=== PATIENT | female | born 1950 | race Caucasian/White ===

== ENCOUNTER → 2018-03-27 | Outpatient (CLI) | payer MEDICARE ==
--- NOTE | 2018-03-28 11:41 | MM ---
Reason for exam: screening (asymptomatic). Last mammogram was performed 2 years and 5 months ago. History: Patient is postmenopausal. Family history of breast cancer in maternal aunt and breast cancer in cousin. Took progesterone for 10 years. MG 3D Screening Mammo W/Cad Bilateral CC and MLO view(s) were taken. Technologist: Margarita Cameron RT (R)(M) Prior study comparison: November 04, 2015, bilateral MG work up mamm w CAD BILAT. November 01, 2015, bilateral MG 3d screening mammo w/cad. There are scattered fibroglandular densities. No significant changes when compared with prior studies. ASSESSMENT: Benign, BI-RAD 2 RECOMMENDATION: Routine screening mammogram of both breasts in 1 year.
== END | disposition home or self-care (01) ==
LOC: RADMAMWWP 06:53
PROVIDERS: ATTEND Internal Medicine
DX: Z12.31 Encounter for screening mammogram for malignant neoplasm of breast (principal)
CPT/HCPCS: 77063; 77067

== ENCOUNTER → 2019-04-25 | Outpatient (CLI) | payer MEDICARE ==
--- NOTE | 2019-04-28 11:09 | MM ---
Reason for exam: screening (asymptomatic). Last mammogram was performed 1 year and 1 month ago. History: Patient is postmenopausal. Family history of breast cancer in maternal aunt and breast cancer in cousin. Took progesterone for 10 years. Physical Findings: A clinical breast exam by your physician is recommended on an annual basis and results should be correlated with mammographic findings. MG 3D Screening Mammo W/Cad Bilateral CC and MLO view(s) were taken. Prior study comparison: March 27, 2018, bilateral MG 3d screening mammo w/cad. November 04, 2015, bilateral MG work up mamm w CAD BILAT. The breast tissue is heterogeneously dense. This may lower the sensitivity of mammography. There is no discrete abnormality. ASSESSMENT: Negative, BI-RAD 1 RECOMMENDATION: Routine screening mammogram of both breasts in 1 year.
== END | disposition home or self-care (01) ==
LOC: MERGE 07:29 → RADMAMWWP 07:29
PROVIDERS: ATTEND Internal Medicine
DX: Z12.31 Encounter for screening mammogram for malignant neoplasm of breast (principal)
CPT/HCPCS: 77063; 77067

== ENCOUNTER → 2019-05-13 | Outpatient (CLI) | payer MEDICARE | END | disposition home or self-care (01) | LOC: LABWHC1 07:35 | PROVIDERS: ATTEND Psychiatry & Neurology Neurology | DX: G40.909 Epilepsy, unspecified, not intractable, without status epilepticus (principal) | CPT/HCPCS: 36415; 80177; 80185 ==

== ENCOUNTER → 2019-06-13 | Outpatient (CLI) | payer MEDICARE | END | disposition home or self-care (01) | LOC: LABWHC1 08:47 | PROVIDERS: ATTEND Psychiatry & Neurology Neurology | DX: G40.909 Epilepsy, unspecified, not intractable, without status epilepticus (principal) | CPT/HCPCS: 36415; 80177 ==

== ENCOUNTER → 2020-01-13 | Outpatient (CLI) | payer MEDICARE ==
[2020-01-13 10:43] LABS: HCT 43.1 % (34.0-46.0); HGB 13.5 gm/dL (11.4-16.0); Hypochromasia Slight; MCH 29.1 pg (25.0-35.0); MCHC 31.3 g/dL (31.0-37.0); MCV 93.1 fL (80.0-100.0); Mean Platelet Volume 6.8; Platelet Count 168 k/uL (150-450); RBC 4.62 m/uL (3.80-5.40); RDW 13.8 % (11.5-15.5); WBC 6.1 k/uL (3.8-10.6)
[2020-01-13 10:49] LABS: INR 1.1 (<1.2); Partial Thromboplastin Time 31.4 sec (22.0-30.0); Prothrombin Time 11.4 sec (9.0-12.0)
[2020-01-13 10:52] LABS: Albumin 3.9 g/dL (3.5-5.0); Calcium 8.9 mg/dL (8.4-10.2); Potassium 4.9 mmol/L (3.5-5.1); Total Bilirubin 0.6 mg/dL (0.2-1.3); Total Protein 6.3 g/dL (6.3-8.2)
[2020-01-13 12:59] LABS: Appearance,Urine Clear (Clear); Bilirubin,Urine Negative (Negative); Blood,Urine Negative (Negative); Color,Urine Yellow; Glucose,Urine (UA) Negative (Negative); Ketones,Urine Negative (Negative); Leukocyte Esterase,Urine Negative (Negative); Nitrite,Urine Negative (Negative); Protein,Urine Negative (Negative); Specific Gravity,Urine 1.015 (1.001-1.035); Urobilinogen,Urine <2.0 mg/dL (<2.0)
== END | disposition home or self-care (01) ==
LOC: LABPAT 09:06
PROVIDERS: ATTEND Orthopaedic Surgery Sports Medicine
DX: Z01.818 Encounter for other preprocedural examination (principal); Z01.812 Encounter for preprocedural laboratory examination
CPT/HCPCS: 36415; 80053; 81003; 85027; 85610; 85730; 87070; 93005

== ENCOUNTER 2020-01-29 05:31 | Inpatient (IN) | payer MEDICARE ==
[2020-01-22 14:32] VITALS: BMI 30.2
[~2020-01-29 05:31] MED LIST: ACETAMINOPHEN TAB 500 MG TAB PO ONE; GABAPENTIN 300 MG CAP PO ONE; MELOXICAM 7.5 MG TAB PO ONE; ONDANSETRON 4 MG/2 ML VIAL IVP ONE; TRANEXAMIC ACID 1,000 MG in SODIUM CHLORIDE 0.9% 100 ML IVPB ONE
[2020-01-29] MEDS ORDERED: ONDANSETRON 4 MG/2 ML VIAL IVP ONE (05:37)
[2020-01-29] MEDS ORDERED: MIDAZOLAM 2 MG/2 ML VIAL IV PRN (05:37)
[2020-01-29] MEDS ORDERED: DEXAMETHASONE SOD PHOSPHATE 10 MG/ML 1 ML VIAL IV ONE (05:37)
[2020-01-29] MEDS ORDERED: LACTATED RINGERS 1,000 ML IV SCH (05:37)
[2020-01-29] MEDS ORDERED: LIDOCAINE 1% (10MG/ML) FOR IV START INTRADERMA ONE (06:00)
[2020-01-29] MEDS ORDERED: ROPIVACAINE 246.25 MG, EPINEPHrine 0.5 MG, KETOROLAC 30 MG, cloNIDine HCL/PF 80 MCG, WA... MISCELLANE ONE ×5 (06:00)
[2020-01-29] MEDS ORDERED: fentaNYL (PF) 50 MCG/ML 2 ML AMP ONE (06:55)
[2020-01-29] MEDS ORDERED: PROPOFOL 10 MG/ML 20 ML VIAL IV ONE (06:55)
[2020-01-29] MEDS ORDERED: ROCURONIUM BROMIDE 10 MG/ML 5 ML VIAL IV ONE (06:55)
[2020-01-29] MEDS ORDERED: TRANEXAMIC ACID 1,000 MG/10 ML VIAL ONE (06:55)
[2020-01-29] MEDS ORDERED: SODIUM CHLORIDE 0.9% 100 ML BAG ONE (06:55)
[2020-01-29] MEDS ORDERED: NEOSTIGMINE 1 MG/ML 10 ML VIAL ONE (06:55)
[2020-01-29] MEDS ORDERED: SUCCINYLCHOLINE CHLORIDE 100 MG/5 ML SYR IV ONE (06:55)
[2020-01-29] MEDS ORDERED: GLYCOPYRROLATE 0.2 MG/ML 2 ML VIAL ONE (06:55)
[2020-01-29] MEDS ORDERED: ceFAZolin 3,000 MG in SODIUM CHLORIDE 0.9% IRRIGATIO 3,000 ML IRRIGATION ONE (07:34)
[2020-01-29] MEDS ORDERED: LACTATED RINGERS 1,000 ML IV ONE (08:26)
[2020-01-29] MEDS ORDERED: bisacodyL 10 MG SUPP RECTAL PRN (08:52)
[2020-01-29] MEDS ORDERED: ACETAMINOPHEN TAB 325 MG TAB PO PRN (08:52)
[2020-01-29] MEDS ORDERED: TEMAZEPAM 15 MG CAP PO PRN (08:52)
[2020-01-29] MEDS ORDERED: MAGNESIUM HYDROXIDE 2,400 MG/10 ML CUP PO PRN (08:52)
[2020-01-29] MEDS ORDERED: NA PHOS,M-B/NA PHOS,DI-BA 133 ML ENEMA RECTAL PRN (08:52)
[2020-01-29] MEDS ORDERED: NALOXONE 0.4 MG/ML 1 ML VIAL IV PRN (08:52)
[2020-01-29] MEDS ORDERED: HYDROmorphone 0.5 MG/0.5 ML SYRINGE IVP PRN ×2 (08:52)
[2020-01-29] MEDS ORDERED: ONDANSETRON 4 MG/2 ML VIAL IVP PRN (08:52)
[2020-01-29] MEDS ORDERED: ROPIVACAINE 0.2%-NS ON-Q PUMP 1,090 MG, EMPTY PAIN BALL 1 EACH MISCELLANE PRN (08:54)
--- NOTE | 2020-01-29 09:06 | P.ANPRN ---
Procedure Note - Anesthesia - Nerve Block Performed Left Adductor Canal Infusion Time Out Performed: Yes ([id number]) Date of Procedure: 01/29/20 Procedure Start Time: 06:43 Procedure Stop Time: 06:48 Location of Patient: PreOp Indication: Acute Post-Operative Pain, Requested by Surgeon Specifically requested for management of pain by DrSoco: Bala Collins Sedation Type: Sedate with meaningful contact maintained Preparation: Sterile Prep Position: Supine Catheter Depth at Skin (cm): 8 Catheter: Indwelling Needle Types: Pajunk Needle Gauge: 21 Ultrasound used to visualize needle placement: Yes Ultrasound used to observe medication spread: Yes Injectate: 0.5% Ropivacaine (see comment for volume) (20cc) Blood Aspirated: No Pain Paresthesia on Injection Noted: No Resistance on Injection: Normal Image Stored and Saved: Yes Events: Uneventful and Well Tolerated
[2020-01-29] MEDS: HYDROmorphone 0.5 MG/0.5 ML SYRINGE IVP PRN ×6 (09:08→19:22)
[2020-01-29] MEDS ORDERED: diphenhydrAMINE 50 MG/ML 1 ML VIAL IVP ONE (09:49)
--- NOTE | 2020-01-29 10:22 | OP ---
OPERATIVE REPORT DATE OF PROCEDURE: 01/29/2020 SURGEON: Bala Collins MD JAVA TECH LEAD: PENELOPE Crain. PREOPERATIVE DIAGNOSIS: Left knee osteoarthrosis. POSTOP DIAGNOSIS: Left knee osteoarthrosis. OPERATION: Left total knee arthroplasty. ANESTHESIA: General endotracheal. ESTIMATED BLOOD LOSS: 100 mL. TOURNIQUET: Tourniquet time was 40 minutes at 250 mmHg. COMPLICATIONS: None apparent. DRAINS: None. DISPOSITION: Postanesthesia care unit. INDICATIONS: Thuy is a very pleasant 69-year-old female with longstanding history of left knee pain. History and physical examination are consistent with advanced left knee osteoarthrosis. She has been through significant nonoperative management up to this point. Further treatments were discussed. She decided to go for the left total knee arthroplasty. The risks of the procedure were discussed in detail. These risks include, but are not limited to risk of infection, nerve damage, bleeding, pain, and a small risk of deep vein thrombosis which could lead to fatal pulmonary emboli. There is also risk of loosening of the implant, could require revision operation. The patient understands these risks. All of her questions were answered to her satisfaction. Appropriate informed consent was obtained. DESCRIPTION OF PROCEDURE: The patient identified in preop holding area. Surgical site was marked by both the patient and myself. She was given 2 g of Ancef IV for prophylactic purposes. She was then transferred to the operative suite. She was placed supine on the operating table. General anesthetic was then administered and dosed per the Anesthesia Department without apparent complication. Examination under anesthesia was then performed. The patient was 2-3 degrees shy of full extension. She had 95 degrees of flexion. Medial collateral ligament, lateral collateral ligament, posterior cruciate ligaments were stable. Tourniquet was then placed high on the left upper thigh well-padded in preparation for surgery. The patient's left lower extremity was than prepped and draped in usual sterile fashion. Standard surgical pause undertaken to ensure that we were operating on the correct site and that appropriate preop antibiotics were given. All staff were in agreement and we proceeded. The outlines of patella were marked with surgical pen and planned 12 cm vertical incision centered over the patella was marked with surgical pen. Leg was then exsanguinated with an Esmarch dressing. The knee was then flexed and tourniquet was inflated to 250 mmHg. The total tourniquet time for the procedure was 40 minutes. Incision was then made with a 10 blade scalpel. Dissection carried down sharply in the overlying fascia. Great care was taken to minimize the skin flaps. The knee was then exposed using a standard medial parapatellar approach. A small cuff of quadriceps tendon was left for suturing. small amount of valgus preoperatively. A very minimal medial release was then made. This was done just enough to place the medial retractors. The medial meniscus was then excised as well. The lateral meniscus was also released anteriorly. The leg was then externally rotated. The patella was everted. The knee was flexed. The retractors then placed to protect the collateral ligaments. I then proceeded to remove the infrapatellar fat pad. This excised sharply tangentially with fibers of the patellar tendon. I then proceeded to remove the peripheral osteophytes. This is done with a rongeur. I then proceeded with the distal femoral resection. She did have near full extension. A planned 9 mm resection was then done. The femoral canal was then entered in midline of the femur approximately 10 mm anterior to the origin of the posterior cruciate ligament. The iftikhar was then advanced down the center of the femur and placed intramedullary. Based on preop radiographs and angle between the anatomic and mechanical axis of the femur was approximately 4-5 degrees. The valgus angle of this femoral cutting guide was then set at 4 degrees for the left knee. The distal femoral cutting guide was then advanced over the intramedullary iftikhar. This was seated firmly against the femur. I then as mentioned planned to take 9 mm off the distal femur. The cutting block was then secured onto the femur with pins. The jig was removed. The distal femoral cut was made through the slot of the block. The pins were then removed. The distal femoral cutting block was removed. The accuracy of the distal femoral cuts was checked with 2 flat bars. I then proceeded with femoral sizing. Posterior referencing sizing guide was held firmly against the resected distal surface of the femur. The posterior condyles were resting on the posterior plane of the guide. The sizing stylus was then placed on the anterior femur. The size was measured as a size 6. I then assessed for femoral rotation. Findings were 3 degrees external rotation. Three degrees external rotation was placed onto the jig. These holes were then marked. I then confirmed the rotation by 3 separate methods. This was done using epicondylar axis as well as Whitesides line and posterior referencing. It was deemed that the external rotation was proper. I then went forward, placed the femoral cutting block. This was placed over the previously placed pin holes. The Moiz wing was then placed on the anterior slots to ensure that we would not notch the anterior femur with the anterior femoral cut. I then proceed with the anterior femoral cut. This was flush with the anterior cortex of the femur. Posterior cuts were then made followed by the anterior chamfer cut, then the posterior chamfer cut. The cutting block was then removed. Throughout the resection, the collateral ligaments were protected with retractors. I then placed a size 6 femur. It was slightly wide mediolateral but the narrow fit very nicely and it fit flush with the distal end of the femur. The drill hole was then made. I then proceed with the tibial cut. I planned for cruciate-retaining knee. The guide was placed and set for varus valgus and for slope. The height was set for approximate 2 mm resection from the lateral tibial plateau which was the lower side. I was happy with the alignment and amount of resection. The cutting block was then pinned to the proximal tibia. The alignment iftikhar was removed. The proximal tibia was resected with a reciprocating saw. Again this was done with retractors protecting the collateral ligaments as well as the posterior cruciate ligament. I then proceeded to evaluate the flexion extension gaps. A 10 mm block was then placed. The flexion-extension gaps were equal. I then proceeded with resection of posterior osteophytes. Very minimal posterior osteophytes. This is done using a curved osteotome. This resected the posterior osteophytes. Posterior capsule stripping brought off the posterior aspect of the femur at this time. The osteophytes were then removed. \I then proceeded with resection of the patella. The thickness of patella was measured using the caliper. The thickness was 22 mm. The thickness of the anticipated patellar dome was taken into account. The resection was then performed and confirmed to be equal in 4 quadrants using a caliper. Approximately 14 mm of bone remained after resection. A 32 x 8.5 standard patellar trial was then placed. The holes drilled. Trial was then placed. I then proceeded with sized tibial plate. A size D tibial plate fit very nicely. I then placed a trial femur. The tibial tray and patellar button. The 10 mm trial tibial insert was then also placed. The components fit very nicely. She had full extension and flexion. The extension and flexion gaps were equal and stable to varus and valgus stress. The patella tracked appropriately. Tibial tray rotation was then marked with a Bovie. This was externally rotated properly. I then proceeded with tibial preparation. First drilled the femoral holes, removed femoral component. The tibial tray was then set for proper external rotation as well as mediolateral placement onto the tibia. It was then pinned into place. I then proceeded with punching the keel. I then decided to proceed with cementing of all of our components. The knee was thoroughly irrigated with sterile saline solution via pulse lavage. A lateral geniculate artery was identified and cauterized. All blood was removed from around the bone of the tibia, femur, and patella with pulse lavage. I then proceeded with cementing. Two packs of antibiotic bone cement on the back table set by the director medical surgical. I then proceed with cementing the tibia first. The cement was impacted with the keel as well as deeply seated to the bone. A second coat of cement was then placed. The tibia was then impacted into place. Excess cement was removed with Cuervo's and jokers. I then proceeded with cementing of the femoral component. The femoral component was also cemented using standard. Excess cement was removed. A 10 mm trial insert was then placed into the knee. It was brought into full extension with a constant axial load placed until the cement had hardened. The patellar component was then cemented. This held firmly with compressive device until the cement had dried. When the cement had dried, the knee was taken out of extension. All excess cement was removed from around the prosthesis. I then trialed the knee with a 10 mm insert. The flexion-extension gaps were appropriate. The knee was stable. It came into full extension. I decided to go forward with a 10 mm medial congruent cross-linked cruciate- retaining tibial insert. Polyethylene was then placed on tibial tray and locked into place. The knee was again reduced. The knee was again further irrigated with sterile saline solution with antibiotic added. The tourniquet was then deflated. Total tourniquet time for the procedure was 40 minutes at 250 mmHg. Final components were Cleve Persona size 6 narrow cruciate-retaining femoral component, size D tibial tray, a 10 mm medial congruent cruciate-retaining polyethylene insert and a 32 x 8.5 mm patella. I then proceeded with closure. Again, the knee was thoroughly irrigated. The quadriceps tendon, the medial retinaculum were reapproximated with #2 Ethibond suture. The extensor mechanism was then closed with a running #2 Quill suture. Subcutaneous tissues were closed with 2-0 Vicryl interrupted suture. The skin was closed with a running 3-0 Quill suture. Dermabond was applied to the incision. All sponge and needle counts were deemed correct prior to closure. The patient tolerated procedure without apparent complication. She was transferred to recovery room in stable condition. MMODL / IJN: [id number] /
--- NOTE | 2020-01-29 11:43 | XR ---
EXAMINATION TYPE: XR knee limited LT DATE OF EXAM: 01/29/2020 CLINICAL HISTORY: Postoperative evaluation Two views of the left knee are submitted. Identified are changes of total knee arthroplasty with fem oral and tibial components appearing well seated. Postsurgical soft tissue changes are noted. Align ment is anatomic.
[2020-01-29] MEDS: LACTATED RINGERS 1,000 ML IV SCH ×2 (13:11→19:24)
[2020-01-29] MEDS: HYDROcodone/APAP 7.5-325MG 1 EACH TAB PO PRN ×2 (14:59→23:11)
[2020-01-29] MEDS ORDERED: ARTIFICIAL TEARS-HYPROMELLOSE DROPS 15 ML BTL BOTH EYES PRN (17:33)
[2020-01-29] MEDS: carvediloL 3.125 MG TAB PO SCH (17:43)
[2020-01-29] MEDS: traZODone HCL 100 MG TAB PO SCH (20:17)
[2020-01-29] MEDS: MAGNESIUM OXIDE 400 MG TAB PO SCH (20:17)
[2020-01-29] MEDS: SENNOSIDES-DOCUSATE SODIUM 1 EACH TAB PO SCH (20:17)
--- NOTE | 2020-01-30 00:52 | P.CONS ---
History of Present Illness - Reason for Consult Consult date: 01/29/20 Medical management - Chief Complaint Left total knee arthroplasty - History of Present Illness Patient is a 69-year-old female with a known history of fibromyalgia, DVT currently on anticoagulation with Xarelto, osteoarthritis, hypertension, history of PE, hypothyroidism and history of Crohn's disease, CKD stage III and other multiple medical problems was admitted to the hospital for elective left total knee arthroplasty. Currently left knee pain is controlled with nerve block. Denies any complaints of fever or chills. No nausea vomiting or abdominal pain. No dizziness or lightheadedness. Vitals blood pressure is 117/68 and pulse is 53 and respiration 18 and pulse ox is 99. Patient has been afebrile. Preoperatively patient was hypotensive likely due to anxiety. Currently blood pressure is controlled. Review of Systems Constitutional: Patient denies any fever or chills . No generalized weakness or weight loss. Abdomen: Patient denied nausea vomiting and diarrhea and abdominal pain. Cardiovascular: Patient denies any chest pain or short of breath no palpitations. Respiratory: patient denied any cough is from production. No shortness of ryan th Neurologic: Patient denied any numbness or tingling headache. Musculoskeletal: Patient denies any complaints of joint swelling or deformity. Skin: Negative Psychiatric: Negative Endocrine: No heat or cold intolerance. No recent weight gain. Genitourinary: No dysuria or hematuria. All other 14 point ROS negative except the above Past Medical History Past Medical History: Deep Vein Thrombosis (DVT), Fibromyalgia, Hypertension, Osteoarthritis (OA), Pulmonary Embolus (PE), Seizure Disorder, Thyroid Disorder Additional Past Medical History / Comment(s): seizure and brain bleed 2012 from "blood too thin" from blood thinner, hx crohns disease, stage 3 kidney disease, varicose veins , recent rx for UTI History of Any Multi-Drug Resistant Organisms: None Reported Past Surgical History: Bariatric Surgery, Bowel Resection, Hysterectomy, Orthopedic Surgery, Tonsillectomy Additional Past Surgical History / Comment(s): surgery for varicose veins , 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, bowel resection with colostomy then colostomy reversal, kavitha oophorectomy, tonsilectomy x 3, gastric bypass and then reversed, stomach stapling, rt knee arthroscopy surgery x 3 , kavitha cataracts, Past Anesthesia/Blood Transfusion Reactions: No Reported Reaction Past Psychological History: No Psychological Hx Reported Smoking Status: Never smoker Past Alcohol Use History: None Reported Past Drug Use History: None Reported - Past Family History Father Family Medical History: Cancer, Deep Vein Thrombosis (DVT) Additional Family Medical History / Comment(s): leukemia Brother(s) Family Medical History: Cancer, Deep Vein Thrombosis (DVT) Additional Family Medical History / Comment(s): prostate, leukemia Mother Family Medical History: Deep Vein Thrombosis (DVT) Medications and Allergies Home Medications Medication Instructions Recorded Confirmed Type Folic Acid 1 mg PO QAM 07/27/15 01/22/20 History Potassium Chloride [Klor-Con 10] 10 meq PO DAILY 08/13/15 01/22/20 History Genteal Eye Drops 1 drop BOTH EYES BID PRN 08/14/15 01/22/20 History Furosemide [Lasix] 20 mg PO DAILY PRN 01/22/20 01/22/20 History Furosemide [Lasix] 40 mg PO DAILY PRN 01/22/20 01/22/20 History Levothyroxine Sodium [Synthroid] 88 mcg PO DAILY 01/22/20 01/22/20 History Magnesium 400 mg PO HS 01/22/20 01/22/20 History Rivaroxaban [Xarelto] 20 mg PO HS 01/22/20 01/22/20 History carvediloL [Coreg] 3.125 mg PO BID 01/22/20 01/22/20 History levETIRAcetam [Keppra] 750 mg PO Q12HR 01/22/20 01/22/20 History traZODone HCL [Desyrel] 100 mg PO HS 01/22/20 01/22/20 History Allergies Allergy/AdvReac Type Severity Reaction Status Date / Time niacin Allergy Rash/Hives,throat Verified 01/29/20 05:48 swelling Penicillins Allergy Unknown Verified 01/29/20 05:48 Childhood Sulfa (Sulfonamide Allergy Unknown Verified 01/29/20 05:48 Antibiotics) Childhood tetanus and diphtheria Allergy Unknown Verified 01/29/20 05:48 toxoids Childhood [tetanus & diphtheria toxoids] Physical Exam Vitals: Vital Signs Temp Pulse Pulse Resp BP BP Pulse Ox 01/29/20 19:06 97.5 F L 53 L 18 117/68 99 01/29/20 16:00 61 18 01/29/20 15:00 97.8 F 61 18 109/65 94 L 01/29/20 13:00 53 L 16 94/59 99 01/29/20 12:30 54 L 16 97/68 97 01/29/20 12:00 59 L 16 102/61 100 01/29/20 11:30 53 L 16 105/63 95 01/29/20 11:00 54 L 16 103/64 98 01/29/20 10:45 55 L 16 93/68 97 01/29/20 10:30 53 L 16 91/59 98 01/29/20 10:15 55 L 16 99/56 95 01/29/20 10:00 54 L 16 96/60 96 01/29/20 09:51 54 L 16 138/68 92 L 01/29/20 09:35 50 L 16 132/73 99 01/29/20 09:20 51 L 16 145/78 99 01/29/20 09:05 53 L 16 157/83 98 01/29/20 08:49 97.2 F L 70 16 154/85 96 01/29/20 06:58 62 16 135/65 99 01/29/20 06:00 98.2 F 64 16 133/70 98 Intake and Output 01/29/20 01/29/20 01/29/20 06:59 14:59 22:59 Intake Total 300 1951 Output Total 100 Balance 300 1851 Intake: IV 300 1701 Oral 250 Output: Estimated Blood Loss 100 Other: Weight 70.9 kg 70.9 kg PHYSICAL EXAMINATION: Patient is lying in the bed comfortably, no acute distress, awake alert and oriented.. HEENT: Normocephalic. Neck is supple. Pupils reactive. Nostrils clear. Oral cavity is moist. Ears reveal no drainage. Neck reveals no JVD, carotid bruits, or thyromegaly. CHEST EXAMINATION: Trachea is central. Symmetrical expansion. Lung farmer clear to auscultation and percussion. CARDIAC: Normal S1, S2 with no gallops. No murmurs ABDOMEN: Soft. Bowel sounds normal. No organomegaly. No abdominal bruits. Extremities: reveal no edema. No clubbing or cyanosis Neurologically awake, alert, oriented x3 with well-coordinated movements. No focal deficits noted Skin: No rash or skin lesions. Psychiatric: Coperative. Nonsuicidal Musculoskeletal: No joint swelling or deformity. Normal range of motion. Assessment and Plan Assessment: Left total knee arthroplasty. Postoperative day 0 Uncontrolled hypertension likely due to anxiety improved now. History of DVT/PE currently on anticoagulation with Xarelto at home Osteoarthritis History of seizure disorder Hypothyroidism Chronic kidney disease stage III Varicose veins History of E. coli urinary tract infection DVT prophylaxis patient is already on full anticoagulation. Plan: Patient will be continued on current pain management and bowel regimen. Anesthesia service on board. Continue with anticoagulation and encourage incentive spirometry and ambulation. Continue home medications and further recommendations based on the clinical course. Diuretics on hold currently which can be restarted upon discharge. Thank you for your consult. Time with Patient: Greater than 30
[2020-01-30] MEDS: HYDROcodone/APAP 7.5-325MG 1 EACH TAB PO PRN ×5 (03:16→23:05)
[2020-01-30] MEDS: HYDROmorphone 0.5 MG/0.5 ML SYRINGE IVP PRN ×3 (04:15→18:08)
[2020-01-30] MEDS: LACTATED RINGERS 1,000 ML IV SCH ×2 (05:28→16:30)
[2020-01-30] MEDS: LEVOTHYROXINE 88 MCG TAB PO SCH (05:29)
[2020-01-30] MEDS: carvediloL 3.125 MG TAB PO SCH ×2 (07:23→17:45)
[2020-01-30] MEDS: FOLIC ACID 1 MG TAB PO SCH (07:23)
[2020-01-30 08:04] LABS: Basophils # (A) 0.1 k/uL (0-0.2); Basophils % (A) 1 %; Eosinophils # (A) 0.1 k/uL (0-0.7); Eosinophils % (A) 1 %; HCT 37.5 % (34.0-46.0); HGB 11.6 gm/dL (11.4-16.0); Hypochromasia Slight; Lymphocytes # (A) 2.2 k/uL (1.0-4.8); Lymphocytes % (A) 24 %; MCH 28.7 pg (25.0-35.0); MCHC 30.9 g/dL (31.0-37.0); MCV 92.8 fL (80.0-100.0); Mean Platelet Volume 7.4; Monocytes # (A) 0.3 k/uL (0-1.0); Monocytes % (A) 4 %; Neutrophils # (A) 6.6 k/uL (1.3-7.7); Neutrophils % (A) 71 %; Platelet Count 144 k/uL (150-450); RBC 4.04 m/uL (3.80-5.40); RDW 13.8 % (11.5-15.5); WBC 9.3 k/uL (3.8-10.6)
--- NOTE | 2020-01-30 09:33 | P.PN ---
Subjective Progress Note Date: 01/30/20 Principal diagnosis: Left TKA Patient is seen at bedside this morning. She is postop day #1 from left total knee arthroplasty. She has pain at the surgical site as expected but denies any new complaints. She denies numbness, tingling or calf pain. Review of systems is negative for fever, chills, chest pain, shortness of breath or other Objective - Vital Signs Vital signs: Vital Signs Temp 97.4 F L 01/30/20 07:17 Pulse 58 L 01/30/20 07:17 Resp 16 01/30/20 07:17 BP 119/83 01/30/20 07:17 Pulse Ox 100 01/30/20 07:17 Intake & Output 01/29/20 01/30/20 01/30/20 18:59 06:59 18:59 Intake Total 1950 1849 Output Total 100 Balance 1850 1849 Weight 70.9 kg Intake: IV 1701 Intake, IV Titration 1100 Amount Lactated Ringers 1,000 ml 1100 @ 100 mls/hr IV .Q10H YUNIER Rx#:[id number] Oral 250 750 Output: Estimated Blood Loss 100 Other: Voiding Method Toilet # Voids 4 - Exam Inspection reveals a benign surgical wound. There is no active bleeding or drainage. Neurovascular status is intact throughout the lower extremity with motor and sensation fully intact. Calf is soft and nontender. 2+ dorsalis pedis pulse and less than 2 second cap refill is present. - Constitutional General appearance: Present: no acute distress - Labs CBC & Chem 7: 01/30/20 07:52 Labs: Abnormal Lab Results - Last 24 Hours (Table) 01/30/20 Range/Units 07:52 MCHC 30.9 L (31.0-37.0) g/dL Plt Count 144 L (150-450) k/uL Assessment and Plan (1) Status post total left knee replacement Narrative/Plan: She will continue with routine postop orthopedic protocol including pain management, wound care, PT, DVT prophylaxis and medical management. Expect that she will transfer to home tomorrow Current Visit: Yes Status: Acute Priority: Medium Code(s): Z96.652 - PRESENCE OF LEFT ARTIFICIAL KNEE JOINT SNOMED Code(s): 4742665209556 Time with Patient: Less than 30
[2020-01-30] MEDS: diazePAM 5 MG TAB PO PRN ×2 (09:39→17:45)
[2020-01-30] MEDS: MULTIVITAMINS, THERA 1 EACH TAB PO SCH (12:21)
--- NOTE | 2020-01-30 14:38 | P.PN ---
Progress Note - Text Progress Note Date: 01/30/20 patient had a left sided aadductor canal catheter placed running at 10 ml/hr she reports pain not well cintrolled, the best at 7/10 and the worst at 9/10 but she is acknowledging that she is ambulating more with physical therapy. upon inspection of the catheter site, I noted some leak of clear fluid most likely from the infusion being infused but the leak is minimal and does not warrant removal of the catheter. the patient asked if we can increase the rate of the infusion to have a better control and I increased the rate to 10 ml/hr the patient denied any numbness or weakness in her left lower extremity, she also denied any symptoms of local anesthetic toxicity. will keep the catheter in and patient will remove it on the third or fourth day.
--- NOTE | 2020-01-30 16:23 | P.PN ---
Subjective Progress Note Date: 01/30/20 Principal diagnosis: Left total knee arthroplasty 69-year-old female with a known history of fibromyalgia, DVT currently on anticoagulation with Xarelto, osteoarthritis, hypertension, history of PE, hypothyroidism and history of Crohn's disease, CKD stage III and other multiple medical problems was admitted to the hospital for elective left total knee arthroplasty. Currently left knee pain is controlled with nerve block. 01/30/2020 Patient is seen and evaluated in room at bedside; patient is postop day #1 for left TKA; patient reports some pain at the surgical site but claims overall improvement Vital signs stable with temperature of 97.4, pulse 58, respirations 16 and blood pressure 119/83 Lab review shows a white blood count of 9.3, hemoglobin 11.6 and was treated count of 144 Orthopedic surgery is following and recommending to continue with. Orthopedic protocol including pain management, wound care, PT evaluation, DVT prophylaxis and medical management Patient is possibly going to be discharged in next 24 hours Objective - Vital Signs Vital signs: Vital Signs Temp 97.4 F L 01/30/20 07:17 Pulse 58 L 01/30/20 07:17 Resp 16 01/30/20 07:17 BP 119/83 01/30/20 07:17 Pulse Ox 100 01/30/20 07:17 Intake & Output 01/29/20 01/30/20 01/30/20 18:59 06:59 18:59 Intake Total 1950 1849 Output Total 100 Balance 1850 185 Weight 70.9 kg Intake: IV 1701 Intake, IV Titration 1100 Amount Lactated Ringers 1,000 ml 1100 @ 100 mls/hr IV .Q10H YUNIER Rx#:[id number] Oral 250 750 Output: Estimated Blood Loss 100 Other: Voiding Method Toilet # Voids 4 - Exam PHYSICAL EXAMINATION: GENERAL: The patient is alert and oriented x3, not in any acute distress. Well developed, well nourished. HEENT: Pupils are round and equally reacting to light. EOMI. No scleral icterus. No conjunctival pallor. Normocephalic, atraumatic. No pharyngeal erythema. No thyromegaly. CARDIOVASCULAR: S1 and S2 present. No murmurs, rubs, or gallops. PULMONARY: Chest is clear to auscultation, no wheezing or crackles. ABDOMEN: Soft, nontender, nondistended, normoactive bowel sounds. No palpable organomegaly. MUSCULOSKELETAL: No joint swelling or deformity. EXTREMITIES: No cyanosis, clubbing, or pedal edema. NEUROLOGICAL: Gross neurological examination did not reveal any focal deficits. SKIN: No rashes. - Labs CBC & Chem 7: 01/30/20 07:52 Labs: Abnormal Lab Results - Last 24 Hours (Table) 01/30/20 Range/Units 07:52 MCHC 30.9 L (31.0-37.0) g/dL Plt Count 144 L (150-450) k/uL Assessment and Plan Assessment: Left total knee arthroplasty. Postoperative day 0 Uncontrolled hypertension likely due to anxiety improved now. History of DVT/PE currently on anticoagulation with Xarelto at home Osteoarthritis History of seizure disorder Hypothyroidism Chronic kidney disease stage III Varicose veins History of E. coli urinary tract infection DVT prophylaxis patient is already on full anticoagulation. Plan: Patient will be continued on current pain management and bowel regimen. Anesthesia service on board. Continue with anticoagulation and encourage incentive spirometry and ambulation. Continue home medications and further recommendations based on the clinical course. Diuretics on hold currently which can be restarted upon discharge.
[2020-01-30] MEDS: SENNOSIDES-DOCUSATE SODIUM 1 EACH TAB PO SCH (20:36)
[2020-01-30] MEDS: RIVAROXABAN 20 MG TAB PO SCH (20:36)
[2020-01-30] MEDS: traZODone HCL 100 MG TAB PO SCH (20:36)
[2020-01-30] MEDS: MAGNESIUM OXIDE 400 MG TAB PO SCH (20:37)
[2020-01-31] MEDS: LACTATED RINGERS 1,000 ML IV SCH ×3 (00:43→22:41)
[2020-01-31] MEDS: diazePAM 5 MG TAB PO PRN ×2 (02:10→21:28)
[2020-01-31] MEDS: HYDROmorphone 0.5 MG/0.5 ML SYRINGE IVP PRN (02:41)
[2020-01-31] MEDS: LEVOTHYROXINE 88 MCG TAB PO SCH (06:12)
[2020-01-31] MEDS: HYDROcodone/APAP 7.5-325MG 1 EACH TAB PO PRN ×2 (06:12→12:06)
[2020-01-31 07:40] LABS: Calcium 8.4 mg/dL (8.4-10.2); Potassium 4.6 mmol/L (3.5-5.1)
[2020-01-31] MEDS: FOLIC ACID 1 MG TAB PO SCH (08:08)
[2020-01-31] MEDS: MULTIVITAMINS, THERA 1 EACH TAB PO SCH (08:08)
[2020-01-31] MEDS: carvediloL 3.125 MG TAB PO SCH ×2 (08:08→16:59)
[2020-01-31] MEDS: traMADol 50 MG TAB PO PRN ×2 (08:14→20:37)
--- NOTE | 2020-01-31 12:58 | P.PN ---
Progress Note - Text Progress Note Date: 01/31/20 Orthopedics: History of present illness: Patient is a pleasant 69-year-old male who is seen at bedside for further evaluation for her left knee. She is status post left knee total arthroplasty performed by Dr. Collins on 01/29/2020. She has been able to ambulate on the left lower extremity. She has an On-Q pain pump intact. She does feel she has significant difficulty with pain control at her left knee. She does not feel her left knee pain is controlled. She does not feel should be able to be discharged home due to her pain. She is eating and voiding without difficulty. She does continue be seen by medicine for her other medical diagnoses including history of DVT currently on anticoagulation with Xarelto, history of pulmonary embolism, hypertension, fibromyalgia, chronic kidney disease stage III, and history of Crohn's disease. Physical Exam Total Knee Arthroplasty: Status post surgical day number 2 Patient is awake, alert, and oriented 3 Vital signs stable Good chest excursion with deep inspiration and expiration On-Q pain pump intact No signs or symptoms of DVT; no calf pain Dressing over the left knee is clean, dry, and intact; no erythema, purulence, or signs of infection Patient has full foot and ankle motion without difficulty at the left lower extremity Evidence of some generalized swelling around the left knee postoperatively Neurovascular status left lower extremity intact Assessment: Status post left total knee arthroplasty Left knee pain History of DVT currently on anticoagulation with Xarelto History of pulmonary embolism Hypertension Fibromyalgia Chronic kidney disease stage III History of Crohn's disease Plan: 1. Patient to remain weight-bear as tolerated on the lower extremity; patient may work with physical therapy to increase mobility and ambulation 2. Continue pain control; patient is having difficulty with current pain control. She is currently receiving Henderson 7.5 mg/325 mg 1 tab every 4-6 hours as needed for pain. We'll plan to discontinue this medication and increase her Henderson to Henderson 10 mg/325 mg 1-2 tabs every 6 hours as needed for pain. We will plan to continue weaning off of IV Dilaudid in anticipation for discharge home tomorrow if her pain is better control 3. Medicine to continue following the patient for his other medical diagnoses including hypertension, fibromyalgia, chronic kidney disease stage III, history of pulmonary embolism, history of DVT currently on anticoagulation: History of Crohn's disease 4. Patient to continue with anticoagulation therapy with Xarelto 5. We'll continue to follow the patient closely. If she is able to improve we'll plan for discharge home as early as tomorrow, 02/01/2020 6. Patient can follow-up with Dr. Bala Collins or Mango Adhikari PA-C at [facility] in 2-3 weeks following discharge
[2020-01-31] MEDS: HYDROcodone/APAP 10-325MG 1 EACH TAB PO PRN ×2 (16:59→22:53)
--- NOTE | 2020-01-31 18:23 | P.PN ---
Subjective Progress Note Date: 01/31/20 Principal diagnosis: Left total knee arthroplasty 69-year-old female with a known history of fibromyalgia, DVT currently on anticoagulation with Xarelto, osteoarthritis, hypertension, history of PE, hypothyroidism and history of Crohn's disease, CKD stage III and other multiple medical problems was admitted to the hospital for elective left total knee arthroplasty. Currently left knee pain is controlled with nerve block. 01/30/2020 Patient is seen and evaluated in room at bedside; patient is postop day #1 for left TKA; patient reports some pain at the surgical site but claims overall improvement Vital signs stable with temperature of 97.4, pulse 58, respirations 16 and blood pressure 119/83 Lab review shows a white blood count of 9.3, hemoglobin 11.6 and was treated count of 144 Orthopedic surgery is following and recommending to continue with. Orthopedic protocol including pain management, wound care, PT evaluation, DVT prophylaxis and medical management Patient is possibly going to be discharged in next 24 hours 01/31/2020 Patient is seen and evaluated in room at bedside; reports her discharge was held due to uncontrolled pain Vital signs remained stable; lab review shows an elevated creatinine of 1.6; dayami garces reports chronic kidney disease with a baseline creatinine over 1.3; patient is advised to increase oral fluid intake; we will monitor strict LUPIS's, daily weights, renal function and electrolytes; discharge held today due to uncontrolled pain; patient will be discharged in next 24 hours Objective - Vital Signs Vital signs: Vital Signs Temp 98.5 F 01/31/20 07:21 Pulse 72 01/31/20 08:00 Resp 16 01/31/20 08:00 BP 111/72 01/31/20 07:21 Pulse Ox 94 L 01/31/20 07:21 Intake & Output 01/30/20 01/31/20 01/31/20 18:59 06:59 18:59 Intake Total 480 Balance 480 Intake: Oral 480 Other: Voiding Method Toilet # Voids 2 2 2 - Exam PHYSICAL EXAMINATION: GENERAL: The patient is alert and oriented x3, not in any acute distress. Well developed, well nourished. HEENT: Pupils are round and equally reacting to light. EOMI. No scleral icterus. No conjunctival pallor. Normocephalic, atraumatic. No pharyngeal erythema. No thyromegaly. CARDIOVASCULAR: S1 and S2 present. No murmurs, rubs, or gallops. PULMONARY: Chest is clear to auscultation, no wheezing or crackles. ABDOMEN: Soft, nontender, nondistended, normoactive bowel sounds. No palpable organomegaly. MUSCULOSKELETAL: No joint swelling or deformity. EXTREMITIES: No cyanosis, clubbing, or pedal edema. NEUROLOGICAL: Gross neurological examination did not reveal any focal deficits. SKIN: No rashes. - Labs CBC & Chem 7: 01/30/20 07:52 01/31/20 06:56 Labs: Abnormal Lab Results - Last 24 Hours (Table) 01/31/20 Range/Units 06:56 Sodium 136 L (137-145) mmol/L Chloride 109 H (98-107) mmol/L BUN 28 H (7-17) mg/dL Creatinine 1.60 H (0.52-1.04) mg/dL Assessment and Plan Assessment: Left total knee arthroplasty. Postoperative day 0 Uncontrolled hypertension likely due to anxiety improved now. History of DVT/PE currently on anticoagulation with Xarelto at home Osteoarthritis History of seizure disorder Hypothyroidism Chronic kidney disease stage III Varicose veins History of E. coli urinary tract infection DVT prophylaxis patient is already on full anticoagulation. Plan: Patient will be continued on current pain management and bowel regimen. Anesthesia service on board. Continue with anticoagulation and encourage incentive spirometry and ambulation. Continue home medications and further recommendations based on the clinical course. Diuretics on hold currently which can be restarted upon discharge.
[2020-01-31] MEDS: MAGNESIUM OXIDE 400 MG TAB PO SCH (20:37)
[2020-01-31] MEDS: traZODone HCL 100 MG TAB PO SCH (20:37)
[2020-01-31] MEDS: SENNOSIDES-DOCUSATE SODIUM 1 EACH TAB PO SCH (20:38)
[2020-01-31] MEDS: RIVAROXABAN 20 MG TAB PO SCH (21:25)
[2020-02-01] MEDS: HYDROcodone/APAP 10-325MG 1 EACH TAB PO PRN ×2 (04:32→12:39)
[2020-02-01] MEDS: LEVOTHYROXINE 88 MCG TAB PO SCH (04:32)
[2020-02-01] MEDS: FOLIC ACID 1 MG TAB PO SCH (08:00)
[2020-02-01] MEDS: carvediloL 3.125 MG TAB PO SCH (08:00)
[2020-02-01] MEDS: MULTIVITAMINS, THERA 1 EACH TAB PO SCH (08:00)
[2020-02-01 08:26] VITALS: BP 113/76; PULSE 98; RESP 16; TEMP 99.2
[2020-02-01 08:37] LABS: Basophils % (A) 0 %; Eosinophils # (A) 0.1 k/uL (0-0.7); Eosinophils % (A) 2 %; HGB 12.2 gm/dL (11.4-16.0); Hypochromasia Slight; Lymphocytes # (A) 1.2 k/uL (1.0-4.8); Lymphocytes % (A) 25 %; MCH 28.9 pg (25.0-35.0); MCHC 31.3 g/dL (31.0-37.0); MCV 92.4 fL (80.0-100.0); Mean Platelet Volume 7.3; Monocytes # (A) 0.2 k/uL (0-1.0); Monocytes % (A) 4 %; Neutrophils # (A) 3.4 k/uL (1.3-7.7); Neutrophils % (A) 69 %; Platelet Count 130 k/uL (150-450); RBC 4.22 m/uL (3.80-5.40); RDW 13.5 % (11.5-15.5)
[2020-02-01 08:56] LABS: Calcium 8.9 mg/dL (8.4-10.2); Potassium 4.6 mmol/L (3.5-5.1)
--- NOTE | 2020-02-01 10:18 | P.DS ---
Providers Date of admission: 01/31/20 09:51 Expected date of discharge: 02/01/20 Attending physician: Bala Collins Consults: 01/29/20 08:52 Consult Physician Routine Consulting Provider: Wm Clark Consult Reason/Comments: post op medical management Do you want consulting provider notified?: Yes Primary care physician: Alicja Santacruz Charbal - Discharge Diagnosis(es) (1) History of DVT (deep vein thrombosis) Current Visit: Yes Status: Acute (2) History of pulmonary embolism Current Visit: Yes Status: Acute (3) Hypertension Current Visit: Yes Status: Acute (4) Fibromyalgia Current Visit: Yes Status: Acute (5) Chronic kidney disease, stage 3 Current Visit: Yes Status: Acute (6) Crohn's disease Current Visit: Yes Status: Acute (7) Osteoarthritis of left knee Current Visit: Yes Status: Acute (8) Status post total left knee replacement Current Visit: Yes Status: Acute Priority: Medium Hospital Course: This is a pleasant 69-year-old female who presented with left knee osteoa rthritis who failed outpatient conservative therapy. She was admitted for a left total knee arthroplasty performed by Dr. Collins on 01/29/2020. She has had some improvement of her pain since yesterday with increase in pain medication to Markham 10 mg/325 mg from Markham 7.5 mg/325 mg. She continues to have her On-Q pain pump intact. Her pain is been fairly well controlled. She has been able to ambulate without significant difficulty. The patient tolerated the procedure well and did well postoperatively. She feels ready for discharge today. Condition on day of discharge stable. Patient will be discharged home. Patient was cleared preoperatively for surgery by Dr. Helm. Patient currently denies any nausea, vomiting, fever, or chills. Patient is eating and voiding freely without difficulty. Patient may shower without a dressing intact with the incision over the left knee remains clean dry and intact over the next 72 hours. Weight-bear as tolerated on left lower extremity. MAPS has been reviewed today, 02/01/2020, with an Overall Overdose Risk Score of 000. An "Opiod Start Talking" Form has been signed by the patient and myself in place in the patient's chart. A prescription has been written for Markham 10 mg/325 mg 1-2 tabs every 6 hours as needed for pain, dispense #56. We will discontinue the previous prescribed prescription for Markham 7.5 mg/325 mg. She should avoid anti-inflammatories over the next 6 weeks postoperatively. Patient may continue with Xarelto as prescribed for anticoagulation patient is also been given a prescription for aspirin 81 mg 1 tab twice a day for 30 days. Patient's past medical history also includes DVT on chronic anticoagulation, history of pulmonary embolism, hypertension, fibromyalgia, chronic kidney disease stage III, and Crohn's disease. Physical Exam Total Knee Arthroplasty: Status post surgical day number 3 Patient is awake, alert, and oriented 3 Vital signs stable Good chest excursion with deep inspiration and expiration On-Q pain pump intact No signs or symptoms of DVT; no calf pain Dressing over the left knee is clean, dry, and intact; no erythema, purulence, or signs of infection Incision site remains clean, dry, intact with glue in place Patient has full foot and ankle motion without difficulty at the left lower extremity Evidence of some generalized swelling around the left knee postoperatively Neurovascular status left lower extremity intact Procedures: Left total knee arthroplasty Patient Condition at Discharge: Stable Plan - Discharge Summary Discharge Rx Participant: Yes New Discharge Prescriptions: New Aspirin [Adult Low Dose Aspirin EC] 81 mg PO BID #60 tablet. HYDROcodone/APAP 10-325MG [Markham 10-325] 1 - 2 tab PO Q6HR PRN #56 tab PRN Reason: Pain No Action Folic Acid 1 mg PO QAM Potassium Chloride [Klor-Con 10] 10 meq PO DAILY Genteal Eye Drops 1 drop BOTH EYES BID PRN PRN Reason: dry eyes traZODone HCL [Desyrel] 100 mg PO HS levETIRAcetam [Keppra] 750 mg PO Q12HR carvediloL [Coreg] 3.125 mg PO BID Levothyroxine Sodium [Synthroid] 88 mcg PO DAILY Rivaroxaban [Xarelto] 20 mg PO HS Furosemide [Lasix] 20 mg PO DAILY PRN PRN Reason: Edema Furosemide [Lasix] 40 mg PO DAILY PRN PRN Reason: Edema Magnesium 400 mg PO HS Discharge Medication List Folic Acid 1 mg PO QAM 07/27/15 [History] Potassium Chloride [Klor-Con 10] 10 meq PO DAILY 08/13/15 [History] Genteal Eye Drops 1 drop BOTH EYES BID PRN 08/14/15 [History] Furosemide [Lasix] 20 mg PO DAILY PRN 01/22/20 [History] Furosemide [Lasix] 40 mg PO DAILY PRN 01/22/20 [History] Levothyroxine Sodium [Synthroid] 88 mcg PO DAILY 01/22/20 [History] Magnesium 400 mg PO HS 01/22/20 [History] Rivaroxaban [Xarelto] 20 mg PO HS 01/22/20 [History] carvediloL [Coreg] 3.125 mg PO BID 01/22/20 [History] levETIRAcetam [Keppra] 750 mg PO Q12HR 01/22/20 [History] traZODone HCL [Desyrel] 100 mg PO HS 01/22/20 [History] Aspirin [Adult Low Dose Aspirin EC] 81 mg PO BID #60 tablet. 01/30/20 [Rx] HYDROcodone/APAP 10-325MG [Markham 10-325] 1 - 2 tab PO Q6HR PRN #56 tab 02/01/20 [Rx] Follow up Appointment(s)/Referral(s): Kahlil Jacobo [NON-STAFF] - (Please contact Donnell Guillory if you have questions about your 4 wheeled walker. ) Bala Collins MD [STAFF PHYSICIAN] - 10 Days [facility] Visiting Nurse, [NON-STAFF] - ([facility] will call you by the afternoon after your discharge and set up your first visit for within 24 hours of discharge from the hospital. ) Activity/Diet/Wound Care/Special Instructions: Keep wound clean and dry Take meds as directed Follow-up with Dr. Collins in office Weight bear as tolerated May shower in 3 days if no bleeding Discharge Disposition: HOME SELF-CARE
== END 2020-02-01 12:55 | disposition home health service (06) | DRG 940 ==
LOC: OR 05:31 → 4SSUR 08:35 → OR 01-30 10:25 → 4SSUR 01-30 10:25 → OBSVTOIN 01-31 09:51
PROVIDERS: ADMIT Orthopaedic Surgery Sports Medicine; ATTEND Orthopaedic Surgery Sports Medicine
PROC: 0SRD0J9 Replacement of Left Knee Joint with Synthetic Substitute, Cemented, Open Approach (ICD-10-PCS; principal; 2020-01-29 07:00)
DX: G89.18 Other acute postprocedural pain (principal); N25.81 Secondary hyperparathyroidism of renal origin; K50.90 Crohn's disease, unspecified, without complications; N18.3 Chronic kidney disease, stage 3 (moderate); G40.909 Epilepsy, unspecified, not intractable, without status epilepticus; E03.9 Hypothyroidism, unspecified; M17.12 Unilateral primary osteoarthritis, left knee; I12.9 Hypertensive chronic kidney disease with stage 1 through stage 4 chronic kidney disease, or unspecified chronic kidney disease; M25.562 Pain in left knee; I83.90 Asymptomatic varicose veins of unspecified lower extremity; K21.9 Gastro-esophageal reflux disease without esophagitis; F41.9 Anxiety disorder, unspecified; M79.7 Fibromyalgia; M85.80 Other specified disorders of bone density and structure, unspecified site; E66.9 Obesity, unspecified; Z68.30 Body mass index [BMI] 30.0-30.9, adult; Z79.899 Other long term (current) drug therapy; Z79.01 Long term (current) use of anticoagulants; Z79.890 Hormone replacement therapy; Z97.3 Presence of spectacles and contact lenses; Z87.440 Personal history of urinary (tract) infections; Z86.718 Personal history of other venous thrombosis and embolism; Z98.84 Bariatric surgery status; Z90.710 Acquired absence of both cervix and uterus; Z90.49 Acquired absence of other specified parts of digestive tract; Z86.73 Personal history of transient ischemic attack (TIA), and cerebral infarction without residual deficits; Z86.711 Personal history of pulmonary embolism; Z87.42 Personal history of other diseases of the female genital tract; Z95.828 Presence of other vascular implants and grafts; Z98.42 Cataract extraction status, left eye; Z98.41 Cataract extraction status, right eye; Z98.891 History of uterine scar from previous surgery; Z90.89 Acquired absence of other organs; Z90.722 Acquired absence of ovaries, bilateral; Z86.19 Personal history of other infectious and parasitic diseases; Z98.890 Other specified postprocedural states; Z88.0 Allergy status to penicillin; Z88.2 Allergy status to sulfonamides; Z88.7 Allergy status to serum and vaccine; Z88.8 Allergy status to other drugs, medicaments and biological substances; Z83.3 Family history of diabetes mellitus; Z84.1 Family history of disorders of kidney and ureter; Z82.49 Family history of ischemic heart disease and other diseases of the circulatory system; Z80.6 Family history of leukemia; Z80.42 Family history of malignant neoplasm of prostate
CPT/HCPCS: 64448; 76942; 80048; 85025; 88300

== ENCOUNTER 2020-09-22 09:52 | Observation (INO) | payer MEDICARE ==
[2020-09-22] MEDS ORDERED: SODIUM CHLORIDE 0.9% 500 ML 500 ML IV STA ×2 (10:30→11:36)
[2020-09-22] MEDS ORDERED: ASPIRIN 81 MG PO STA (10:30)
[2020-09-22 10:58] LABS: Basophils # (A) 0.1 k/uL (0-0.2); Basophils % (A) 1 %; Eosinophils # (A) 0.2 k/uL (0-0.7); Eosinophils % (A) 2 %; HCT 48.4 % (34.0-46.0); HGB 15.9 gm/dL (11.4-16.0); Lymphocytes # (A) 2.4 k/uL (1.0-4.8); Lymphocytes % (A) 31 %; MCH 29.8 pg (25.0-35.0); MCHC 32.8 g/dL (31.0-37.0); MCV 90.8 fL (80.0-100.0); Mean Platelet Volume 6.7; Monocytes # (A) 0.5 k/uL (0-1.0); Monocytes % (A) 7 %; Neutrophils # (A) 4.5 k/uL (1.3-7.7); Neutrophils % (A) 58 %; Platelet Count 211 k/uL (150-450); RBC 5.33 m/uL (3.80-5.40); RDW 13.4 % (11.5-15.5); WBC 7.7 k/uL (3.8-10.6)
[2020-09-22 11:09] LABS: Calcium 9.8 mg/dL (8.4-10.2); Magnesium 2.3 mg/dL (1.6-2.3); Potassium 4.5 mmol/L (3.5-5.1); Total Bilirubin 0.9 mg/dL (0.2-1.3); Total Protein 6.7 g/dL (6.3-8.2)
[2020-09-22 11:18] LABS: D-Dimer 0.37 mg/L FEU (<0.60); INR 1.2 (<1.2); Partial Thromboplastin Time 28.4 sec (22.0-30.0); Prothrombin Time 12.5 sec (9.0-12.0)
[2020-09-22 11:27] LABS: Appearance,Urine Clear (Clear); Bilirubin,Urine Negative (Negative); Blood,Urine Negative (Negative); Color,Urine Yellow; Glucose,Urine (UA) Negative (Negative); Hyaline Casts,Urine 1 /lpf (0-2); Ketones,Urine Negative (Negative); Leukocyte Esterase,Urine Moderate (Negative); Mucus,Urine Rare /hpf; Nitrite,Urine Negative (Negative); PH, Urine 5.5 (5.0-8.0); Protein,Urine Trace (Negative); RBC,Urine 1 /hpf (0-5); Specific Gravity,Urine 1.017 (1.001-1.035); Squamous Epithelial Cell,Urine 2 /hpf (0-4); Urobilinogen,Urine <2.0 mg/dL (<2.0); WBC,Urine 19 /hpf (0-5)
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
--- NOTE | 2020-09-22 12:37 | XR ---
EXAMINATION TYPE: XR chest 2V DATE OF EXAM: 09/22/2020 COMPARISON: Chest x-ray and CT chest August 13, 2015 HISTORY: Chest pain, history of pulmonary emboli. TECHNIQUE: Frontal and lateral views of the chest are obtained. FINDINGS: There is no suspicious new focal air space opacity, pleural effusion, or pneumothorax seen . The cardiac silhouette size remains within normal limits. Underlying scoliosis redemonstrated. Blaire gical changes with sutures and clips epigastric region and left upper quadrant again seen. IMPRESSION: No acute cardiopulmonary process. No significant change from prior studies.
[2020-09-22] MEDS ORDERED: NITROGLYCERIN SL TABS 0.4 MG TAB SUBLINGUAL PRN (12:44)
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
[2020-09-22] MEDS: SODIUM CHLORIDE 0.9% 1,000 ML IV SCH (16:47)
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
[2020-09-22] MEDS: carvediloL 3.125 MG TAB PO SCH (19:27)
[2020-09-22] MEDS: DOXYCYCLINE 100 MG CAP PO SCH (19:27)
--- NOTE | 2020-09-22 20:09 | US ---
EXAMINATION TYPE: US kidneys/renal and bladder DATE OF EXAM: 09/22/2020 COMPARISON: NONE CLINICAL HISTORY: bharat. bharat, CKD EXAM MEASUREMENTS: Right Kidney: 9.6 x 3.4 x 3.4 cm Left Kidney: 9.5 x 4.6 x 3.2 cm Right Kidney: cystic area mid = 1.2 x 0.8 x 0.9cm Left Kidney: upper pole stone = 1.0cm Bladder: appears wnl Bilateral Jets seen: no . IMPRESSION: There is left side ureteral jet. There is mild renal cortical thinning. No hydronephrosis. Nonobstruc ting left renal calculus.
[2020-09-22] MEDS ORDERED: traZODone HCL 100 MG TAB PO SCH (21:00)
[2020-09-22] MEDS ORDERED: levETIRAcetam 500 MG TAB PO SCH (21:00)
[2020-09-22] MEDS ORDERED: MAGNESIUM OXIDE 400 MG TAB PO SCH (21:00)
[2020-09-22] MEDS ORDERED: RIVAROXABAN 20 MG TAB PO SCH (21:00)
[2020-09-23] MEDS ORDERED: LEVOTHYROXINE 88 MCG TAB PO SCH (06:30)
[2020-09-23 07:01] VITALS: RESP 14
[2020-09-23] MEDS ORDERED: DOBUTamine DRIP for NUC MED 500 MG in DEXTROSE/WATER 1 250ML.BAG IV PRN (08:21)
[2020-09-23] MEDS: DOXYCYCLINE 100 MG CAP PO SCH (08:47)
[2020-09-23] MEDS: SODIUM CHLORIDE 0.9% 1,000 ML IV SCH (08:48)
[2020-09-23] MEDS: carvediloL 3.125 MG TAB PO SCH ×2 (08:48→11:49)
[2020-09-23] MEDS ORDERED: ASPIRIN 325 MG TAB PO SCH (09:00)
[2020-09-23] MEDS ORDERED: FOLIC ACID 1 MG TAB PO SCH (09:00)
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
[2020-09-23 09:41] LABS: Chol/HDL Ratio 2.53; LDL Cholesterol,Calculated 58.4 mg/dL (0.0-131.0); Magnesium 2.2 mg/dL (1.5-2.4); VLDL Calculation 13.6 mg/dL (5.00-40.00)
[2020-09-23 09:42] LABS: African American GFR (CKD) 32.5 (60.0-200.0); Anion Gap 6.1 mmol/L (4.00-12.00); BUN/Creat Ratio 26.11 Ratio (12.00-20.00); Calcium 8.5 mg/dL (8.7-10.3); Carbon Dioxide 20.9 mmol/L (21.6-31.8)
--- NOTE | 2020-09-23 10:50 | P.PN ---
Subjective Patient is seen in follow for acute kidney injury on chronic kidney disease. Renal function better. Good urine output. No shortness of breath but continues to have chest heaviness. Currently undergoing echocardiogram. Stress test later today. Vital signs are stable. General: The patient appeared well nourished and normally developed. HEENT: Head exam is unremarkable. Neck is without jugular venous distension. LUNGS: Breath sounds decreased. HEART: Rate and Rhythm are regular. ABDOMEN: Soft, nontender. EXTREMITITES: No edema. Objective - Vital Signs Vital signs: Vital Signs Temp 97.9 F 09/23/20 07:00 Pulse 56 L 09/23/20 07:00 Resp 14 09/23/20 07:00 BP 132/72 09/23/20 07:00 Pulse Ox 99 09/23/20 07:00 Intake & Output 09/22/20 09/23/20 09/23/20 18:59 06:59 18:59 Weight 64.41 kg Other: # Voids 1 - Labs CBC & Chem 7: 09/22/20 10:36 09/23/20 06:10 Labs: Abnormal Lab Results - Last 24 Hours (Table) 09/22/20 09/22/20 09/22/20 Range/Units 10:36 10:36 10:36 Hct 48.4 H (34.0-46.0) % PT 12.5 H (9.0-12.0) sec INR 1.2 H (<1.2) Chloride 109 H (98-107) mmol/L Carbon Dioxide 21 L (22-30) mmol/L BUN 58 H (7-17) mg/dL Creatinine 2.21 H (0.52-1.04) mg/dL Est GFR (CKD-EPI)AfAm (60.0-200.0) Est GFR (CKD-EPI)NonAf (60.0-200.0) BUN/Creatinine Ratio (12.00-20.00) Ratio Calcium (8.7-10.3) mg/dL Urine Protein (Negative) Ur Leukocyte Esterase (Negative) Urine WBC (0-5) /hpf Urine Mucus (None) /hpf 09/22/20 09/23/20 Range/Units 10:36 06:10 Hct (34.0-46.0) % PT (9.0-12.0) sec INR (<1.2) Chloride 113 H (98-107) mmol/L Carbon Dioxide 20.9 L (22-30) mmol/L BUN 47.0 H (7-17) mg/dL Creatinine 1.8 H (0.52-1.04) mg/dL Est GFR (CKD-EPI)AfAm 32.5 L (60.0-200.0) Est GFR (CKD-EPI)NonAf 28.0 L (60.0-200.0) BUN/Creatinine Ratio 26.11 H (12.00-20.00) Ratio Calcium 8.5 L (8.7-10.3) mg/dL Urine Protein Trace H (Negative) Ur Leukocyte Esterase Moderate H (Negative) Urine WBC 19 H (0-5) /hpf Urine Mucus Rare H (None) /hpf Microbiology - Last 24 Hours (Table) 09/22/20 10:36 Urine Culture - Preliminary Urine,Voided Assessment and Plan Plan: Assessment: 1. Acute kidney injury mostly prerenal from hypovolemia/poor intake. Creatinine 2.1 admission and is 1.8 today. UA fairly benign. No hydronephrosis noted on kidney ultrasound. 2. Chronic kidney disease stage IIIB with baseline creatinine near 1.5 from December and January 2020. Etiology is nephrosclerosis. 3. Metabolic acidosis secondary to acute kidney injury and IV fluids. 4. Recent URI. 5. Pyuria. Urine culture pending. 6. History of PE. 7. Chest pain. Cardiology following. Plan: Maintain normal saline at 60 mL an hour. Hold diuretics. Follow-up urine culture. Follow-up echocardiogram and stress test results. Avoid nephrotoxins. Encourage oral intake. Repeat electrolytes in the morning. Add oral bicarbonate
[2020-09-23] MEDS ORDERED: SODIUM BICARBONATE TAB 650 MG TAB PO SCH (11:00)
--- NOTE | 2020-09-23 12:52 | ECHOF ---
Referral Reason:cp MEASUREMENTS -------- HEIGHT: 152.4 cm WEIGHT: 64.4 kg BP: 132/72 RVIDd: 3.9 cm (< 3.3) IVSd: 1.0 cm (0.6 - 1.1) LVIDd: 3.8 cm (3.9 - 5.3) LVPWd: 1.1 cm (0.6 - 1.1) IVSs: 1.4 cm LVIDs: 2.5 cm LVPWs: 1.3 cm LAESV Index (A-L): 35.97 ml/m Ao Diam: 3.2 cm (2.0 - 3.7) AV Cusp: 2.2 cm (1.5 - 2.6) MV EXCURSION: 17.297 mm (> 18.000) MV EF SLOPE: 227 mm/s (70 - 150) EPSS: 0.7 cm MV E Blaise: 0.59 m/s MV DecT: 235 ms MV A Blaise: 1.02 m/s MV E/A Ratio: 0.58 AR PHT: 513 ms RAP: 5.00 mmHg RVSP: 26.92 mmHg FINDINGS -------- Sinus rhythm. Resting bradycardia (HR<60bpm). This was a technically adequate study. The left ventricular size is normal. Left ventricular wall thickness is normal. Overall left vent ricular systolic function is normal with, an EF between 55 - 60 %. The diastolic filling pattern is normal for the age of the patient 13.30. The right ventricle is mild to moderately enlarged. LA is moderately dilated 34-39 ml/m2 The right atrial size is normal. Interatrial and interventricular septum intact. The aortic valve is trileaflet and appears structurally normal. There is [id number] aortic re gurgitation. The mitral valve is normal. Mild mitral regurgitation is present. The tricuspid valve appears structurally normal. Mild tricuspid regurgitation present. Right vent ricular systolic pressure is normal at < 35 mmHg. The right ventricular systolic pressure, as measu red by Doppler, is 26.92mmHg. There is no pulmonic regurgitation present. The aortic root size is normal. IVC Not well visulized. There is no pericardial effusion. CONCLUSIONS -------- 1. Left ventricular wall thickness is normal. 2. Overall left ventricular systolic function is normal with, an EF between 55 - 60 %. 3. The right ventricle is mild to moderately enlarged. 4. LA is moderately dilated 34-39 ml/m2 5. There is [id number] aortic regurgitation. 6. Mild mitral regurgitation is present. 7. Mild tricuspid regurgitation present. 8. There is no pericardial effusion. SALES STOCK ASSOCIATE: Nena Reyes RDCS
--- NOTE | 2020-09-23 13:16 | ECHOS ---
STRESS ECHOCARDIOGRAM LUMASON: Vial INDICATIONS: Chest pain. MEDICATIONS: BASELINE HEART RATE: 58 BASELINE BLOOD PRESSURE: 146/89 MAXIMUM HEART RATE: 126 MAXIMUM BLOOD PRESSURE: 188/78 85% MPHR: 128 100% MPHR: 150 METS: MAXIMUM STAGE REACHED: TOTAL EXERCISE TIME: CLINICAL INFORMATION: Baseline rhythm is sinus mechanism, rate of 58, borderline left axis deviation. Baseline blood pressure 146/89 mmHg. Patient received an infusion of dobutamine per protocol, peak rate 126 beats per minute which is equal to 84% maximum predicted heart rate. Peak blood pressure 188/78 mmHg. Electrocardiograph monitoring revealed no evidence of diagnostic ischemic ST deviation. Baseline echocardiogram revealed normal wall motion. At peak infusion, there was normal wall motion augmentation with no hypokinesis or dyskinesis. CONCLUSION: 1. Normal electrocardiograph response to dobutamine infusion. 2. Normal stress echocardiogram with no evidence of stress-induced ischemia. MMODL / IJN: [id number] /
[2020-09-23 15:38] VITALS: BP 119/75; PULSE 69; TEMP 98.3
--- NOTE | 2020-09-23 16:42 | P.DS ---
Providers Date of admission: 09/22/20 12:34 Expected date of discharge: 09/23/20 Attending physician: Edward Joy Consults: 09/22/20 12:44 Consult Physician Urgent Consulting Provider: [facility] Consult Reason/Comments: chest pain, pre-syncope events Do you want consulting provider notified?: Yes Consult Physician Urgent Consulting Provider: Gonsalo Rogers Consult Reason/Comments: IGNACIO Do you want consulting provider notified?: Yes Primary care physician: Alicja Monaco Hospital Course: Final diagnosis -Chest pain: Ruled out acute coronary syndromes -Acute renal failure prerenal azotemia secondary to diuretics -Chronic kidney disease stage III 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 Patient will follow-up with Dr. Helm in the outpatient setting upon discharge. Patient is to follow-up with cardiology in the outpatient setting. Repeat labs in 2-3 days to monitor kidney functions. Total time taken is greater than 35 minutes. Hospital course 69-year-old female came in the emergency department with complains of palpitations and irregular heartbeat with intermittent chest pains going on for a last few weeks. Patient is also on antibiotics for urinary neck symptoms which is doxycycline. Patient just pain is intermittent [id number] nonradiating pressure-like sensation in the precordial area, nonpleuritic not associated with food. Patient had history of primary embolism for which patient takes also at home. Patient has significant family history of atrial fibrillation patient believes she may have atrial fibrillation patient was complaining of lightheadedness had a near syncopal episode but patient is able to get down to the floor. I do not see any echo cardiac exam available at this time. Patient does have history of hyperthyroidism as well and patient is on levothyroxine at this time. Patient is also found to have elevated creatinine of 2.2 baseline around 1.5. Patient is on diuretics patient denied any history of congestive heart failure. 09/23/2020 Patient is seen in follow-up and underwent echo and stress testing which showed a negative stress test and echo shows LV systolic function is normal with an EF of 55-60 with mild mitral and tricuspid regurgitation present. Patient is maintained on sodium bicarb tablets and will continue with repeat labs recommended in 2-3 days to monitor kidney functions as they are slowly improving. Patient also instructed to hold diuretics until follow-up and repeat labs of been done with primary care provider. Patient also instructed to follow-up with cardiology in the outpatient setting. Currently no reports of chest pain, shortness of breath, or palpitations. Patient is afebrile. No reports of nausea or vomiting and patient is tolerating diet. Patient will be discharged home today. On exam vital signs are stable. Cardio S1, S2 are muffled. Respiratory system shows diminished breath sounds at the bases with no wheezing or rhonchi noted. Abdomen is soft and nontender. Nervous system shows no focal deficits. Please refer to medication reconciliation sheet for a list of medications. Patient Condition at Discharge: Stable Plan - Discharge Summary Discharge Rx Participant: No New Discharge Prescriptions: New Sodium Bicarbonate Tab 650 mg PO BID #60 tab Continue Folic Acid 1 mg PO DAILY traZODone HCL [Desyrel] 100 mg PO HS levETIRAcetam [Keppra] 750 mg PO DAILY carvediloL [Coreg] 3.125 mg PO BID Levothyroxine Sodium [Synthroid] 88 mcg PO DAILY Rivaroxaban [Xarelto] 20 mg PO HS levETIRAcetam [Keppra] 500 mg PO HS Magnesium Oxide [Mag-Ox] 400 mg PO HS Doxycycline Hyclate [Vibramycin] 100 mg PO BID Discontinued Potassium Chloride [Klor-Con 10] 10 meq PO DAILY Furosemide [Lasix] 20 mg PO BID PRN PRN Reason: Edema Furosemide [Lasix] 40 mg PO DAILY PRN PRN Reason: Edema Discharge Medication List Folic Acid 1 mg PO DAILY 07/27/15 [History] Levothyroxine Sodium [Synthroid] 88 mcg PO DAILY 01/22/20 [History] Rivaroxaban [Xarelto] 20 mg PO HS 01/22/20 [History] carvediloL [Coreg] 3.125 mg PO BID 01/22/20 [History] levETIRAcetam [Keppra] 750 mg PO DAILY 01/22/20 [History] traZODone HCL [Desyrel] 100 mg PO HS 01/22/20 [History] Doxycycline Hyclate [Vibramycin] 100 mg PO BID 09/22/20 [History] Magnesium Oxide [Mag-Ox] 400 mg PO HS 09/22/20 [History] levETIRAcetam [Keppra] 500 mg PO HS 09/22/20 [History] Sodium Bicarbonate Tab 650 mg PO BID #60 tab 09/23/20 [Rx] Follow up Appointment(s)/Referral(s): Jacinda Helm MD [Primary Care Provider] - 3 Days Discharge Disposition: HOME SELF-CARE
== END 2020-09-23 18:17 | disposition home or self-care (01) ==
LOC: EC 09:52 → 6NMEDSUR 12:34
PROVIDERS: ADMIT Internal Medicine; ATTEND Internal Medicine
DX: R07.89 Other chest pain (principal); N17.9 Acute kidney failure, unspecified; E87.2 Acidosis; E86.1 Hypovolemia; T50.2X5A Adverse effect of carbonic-anhydrase inhibitors, benzothiadiazides and other diuretics, initial encounter; I12.9 Hypertensive chronic kidney disease with stage 1 through stage 4 chronic kidney disease, or unspecified chronic kidney disease; N18.32 Chronic kidney disease, stage 3b; N39.0 Urinary tract infection, site not specified; G40.909 Epilepsy, unspecified, not intractable, without status epilepticus; J06.9 Acute upper respiratory infection, unspecified; R55 Syncope and collapse; R00.2 Palpitations; R00.1 Bradycardia, unspecified; N20.0 Calculus of kidney; E05.90 Thyrotoxicosis, unspecified without thyrotoxic crisis or storm; Z20.822 Contact with and (suspected) exposure to COVID-19; M19.90 Unspecified osteoarthritis, unspecified site; G43.909 Migraine, unspecified, not intractable, without status migrainosus; I08.1 Rheumatic disorders of both mitral and tricuspid valves; E03.9 Hypothyroidism, unspecified; M79.7 Fibromyalgia; I83.90 Asymptomatic varicose veins of unspecified lower extremity; F43.10 Post-traumatic stress disorder, unspecified; F32.9 Major depressive disorder, single episode, unspecified; F41.9 Anxiety disorder, unspecified; E66.9 Obesity, unspecified; Z68.27 Body mass index [BMI] 27.0-27.9, adult; Z79.890 Hormone replacement therapy; Z79.01 Long term (current) use of anticoagulants; Z79.899 Other long term (current) drug therapy; Z88.0 Allergy status to penicillin; Z88.2 Allergy status to sulfonamides; Z88.7 Allergy status to serum and vaccine; Z88.8 Allergy status to other drugs, medicaments and biological substances; Z86.711 Personal history of pulmonary embolism; Z86.718 Personal history of other venous thrombosis and embolism; Z86.79 Personal history of other diseases of the circulatory system; Z96.652 Presence of left artificial knee joint; Z90.710 Acquired absence of both cervix and uterus; Z98.84 Bariatric surgery status; Z98.890 Other specified postprocedural states; Z87.891 Personal history of nicotine dependence; Z87.01 Personal history of pneumonia (recurrent); Z90.49 Acquired absence of other specified parts of digestive tract; Z87.440 Personal history of urinary (tract) infections; Z80.6 Family history of leukemia; Z80.42 Family history of malignant neoplasm of prostate; Z82.49 Family history of ischemic heart disease and other diseases of the circulatory system; Z82.0 Family history of epilepsy and other diseases of the nervous system
CPT/HCPCS: 96361 ×3; 93005 ×2; 96360; 99285; 36415; 93306; 93351; 85379; 83880; 80061; 80053; 80048; 83735 ×2; 84484; 85025; 85610; 85730; 81001; 87086; 87636; 71046; 76770; G0378 ×2; J1250

== ENCOUNTER → 2020-10-06 | Outpatient (CLI) | payer MEDICARE ==
--- NOTE | 2020-10-07 13:51 | MM ---
Reason for exam: screening (asymptomatic). Last mammogram was performed 1 year and 5 months ago. History: Patient is postmenopausal. Family history of breast cancer in maternal aunt, breast cancer in cousin at age 50, and breast cancer in sister at age 68. Took progesterone for 10 years. Physical Findings: A clinical breast exam by your physician is recommended on an annual basis and results should be correlated with mammographic findings. MG 3D Screening Mammo W/Cad Bilateral CC and MLO view(s) were taken. Prior study comparison: April 25, 2019, bilateral MG 3d screening mammo w/cad. March 27, 2018, bilateral MG 3d screening mammo w/cad. The breast tissue is heterogeneously dense. This may lower the sensitivity of mammography. Benign appearing bilateral calcifications. No significant changes when compared with prior studies. ASSESSMENT: Benign, BI-RAD 2 RECOMMENDATION: Routine screening mammogram of both breasts in 1 year.
== END | disposition home or self-care (01) ==
LOC: RADMAMWWP 12:59
PROVIDERS: ATTEND Internal Medicine
DX: Z12.31 Encounter for screening mammogram for malignant neoplasm of breast (principal); Z78.0 Asymptomatic menopausal state; Z80.3 Family history of malignant neoplasm of breast
CPT/HCPCS: 77063; 77067

== ENCOUNTER → 2020-10-14 | Outpatient (CLI) | payer MEDICARE ==
[2020-10-14 11:19] LABS: HCT 38.7 % (37.2-46.3); HGB 12.1 g/dL (12.0-15.0); MCH 29.2 pg (27.0-32.0); MCHC 31.3 g/dL (32.0-37.0); MCV 93.3 fL (80.0-97.0); Mean Platelet Volume 9.7 fL (9.5-12.2); Platelet Count 178 X 10*3/uL (140-440); RBC 4.15 X 10*6/uL (4.10-5.20); RDW 13.6 % (11.5-14.5); WBC 6.66 X 10*3/uL (4.50-10.00)
[2020-10-14 14:03] LABS: % Iron Saturation 14.18 (12.00-45.00); African American GFR (CKD) 37.4 (60.0-200.0); Anion Gap 8.7 mmol/L (4.00-12.00); BUN/Creat Ratio 14.38 Ratio (12.00-20.00); Calcium 8.2 mg/dL (8.7-10.3); Carbon Dioxide 23.3 mmol/L (21.6-31.8); Magnesium 1.6 mg/dL (1.5-2.4); Non-African American GFR(CKD) 32.3 (60.0-200.0); Phosphorus 3.3 mg/dL (2.4-5.1); Potassium 3.3 mmol/L (3.5-5.5); Uric Acid 6.6 mg/dL (2.9-7.7)
== END | disposition home or self-care (01) ==
LOC: LABWHC1 07:09
PROVIDERS: ATTEND Nurse Practitioner Family
DX: G40.909 Epilepsy, unspecified, not intractable, without status epilepticus (principal); N18.30 Chronic kidney disease, stage 3 unspecified; E21.3 Hyperparathyroidism, unspecified; E55.9 Vitamin D deficiency, unspecified; M10.9 Gout, unspecified; D64.9 Anemia, unspecified
CPT/HCPCS: 36415; 80048; 80177; 82306; 82728; 83540; 83550; 83735; 83970; 84100; 84550; 85027

== ENCOUNTER → 2021-11-14 | Outpatient (CLI) | payer MEDICARE ==
[2021-11-14 08:11] LABS: INR 1.2 (<1.2); Partial Thromboplastin Time 32.7 sec (22.0-30.0); Prothrombin Time 12.5 sec (9.0-12.0)
[2021-11-14 08:40] LABS: Appearance,Urine Cloudy (Clear); Bacteria,Urine Rare /hpf; Bilirubin,Urine Negative (Negative); Blood,Urine Large (Negative); Color,Urine Yellow; Glucose,Urine (UA) Negative (Negative); Ketones,Urine Negative (Negative); Leukocyte Esterase,Urine Large (Negative); Mucus,Urine Rare /hpf; Nitrite,Urine Negative (Negative); PH, Urine 5.5 (5.0-8.0); Protein,Urine Trace (Negative); RBC,Urine >182 /hpf (0-5); Specific Gravity,Urine 1.013 (1.001-1.035); Squamous Epithelial Cell,Urine 5 /hpf (0-4); Urobilinogen,Urine <2.0 mg/dL (<2.0); WBC,Urine 134 /hpf (0-5)
[2021-11-14 10:39] LABS: Basophils # (A) 0.06 X 10*3/uL (0.00-0.10); Basophils % (A) 0.9 %; Eosinophils # (A) 0.16 X 10*3/uL (0.04-0.35); Eosinophils % (A) 2.5 %; HCT 43.9 % (37.2-46.3); HGB 13.6 g/dL (12.0-15.0); Immature Grans, Automated 0.2 %; Lymphocytes # (A) 2.76 X 10*3/uL (0.90-5.00); Lymphocytes % (A) 43.2 %; MCH 28.3 pg (27.0-32.0); MCV 91.5 fL (80.0-97.0); Mean Platelet Volume 9.4 fL (9.5-12.2); Monocytes # (A) 0.37 X 10*3/uL (0.20-1.00); Monocytes % (A) 5.8 %; NRBC Per 100 WBC 0 /100 WBCS (0.0-0.0); Neutrophils # (A) 3.03 X 10*3/uL (1.80-7.70); Neutrophils % (A) 47.4 %; Platelet Count 193 X 10*3/uL (140-440); RDW 15.4 % (11.5-14.5); WBC 6.39 X 10*3/uL (4.50-10.00)
[2021-11-14 10:51] LABS: Urine Creatinine 84.7 mg/dL (28.0-217.0)
[2021-11-14 10:53] LABS: % Iron Saturation 15.57 (12.00-45.00); African American GFR (CKD) 32.3 (60.0-200.0); Albumin 4.1 g/dL (3.8-4.9); Albumin/Globulin Ratio 1.58 (1.60-3.17); BUN/Creat Ratio 17.5 Ratio (12.00-20.00); Blood Urea Nitrogen 31.5 mg/dL (9.0-27.0); Calcium 9.4 mg/dL (8.7-10.3); Globulin 2.6 g/dL (1.6-3.3); Magnesium 2.1 mg/dL (1.5-2.4); Non-African American GFR(CKD) 27.8 (60.0-200.0); Phosphorus 3.5 mg/dL (2.4-5.1); Potassium 4.3 mmol/L (3.5-5.5); Total Bilirubin 0.4 mg/dL (0.30-1.20); Total Protein 6.7 g/dL (6.2-8.2); Uric Acid 7.1 mg/dL (2.9-7.7)
== END | disposition home or self-care (01) ==
LOC: LABWHC1 07:03
PROVIDERS: ATTEND Internal Medicine Nephrology
DX: N25.81 Secondary hyperparathyroidism of renal origin (principal); N39.0 Urinary tract infection, site not specified; E83.39 Other disorders of phosphorus metabolism; N18.4 Chronic kidney disease, stage 4 (severe); M10.9 Gout, unspecified; D64.9 Anemia, unspecified; R80.9 Proteinuria, unspecified
CPT/HCPCS: 36415; 80053; 81001; 82043; 82306; 82570; 82728; 83540; 83550; 83735; 83970; 84100; 84550; 85025; 85610; 85730; 87070

== ENCOUNTER → 2021-11-14 | Outpatient (CLI) | payer MEDICARE | END | disposition home or self-care (01) | LOC: LABPAT 07:01 | PROVIDERS: ATTEND Orthopaedic Surgery Sports Medicine | DX: Z53.9 Procedure and treatment not carried out, unspecified reason (principal) ==

== ENCOUNTER → 2021-11-29 | Outpatient (CLI) | payer MEDICARE ==
--- NOTE | 2021-11-29 11:43 | US ---
EXAMINATION TYPE: US kidneys/renal and bladder DATE OF EXAM: 11/29/2021 COMPARISON: 09/22/2020 CLINICAL HISTORY: 70-year-old female N18.4 CKD STAGE 4. TECHNIQUE: Multiple sonographic images of the kidneys and bladder are obtained. FINDINGS: EXAM MEASUREMENTS: Right Kidney: 9.9 x 3.9 x 4.0 cm Left Kidney: 9.9 x 4.7 x 4.2 cm Both kidneys show thinned and echogenic renal cortex. No hydronephrosis on either side. Right Kidney: 0.9cm cyst mid pole Left Kidney: 1.2cm stone superior pole Bladder: not fully distended, appears wnl as seen Bilateral Jets seen: right jet not seen, left jet seen IMPRESSION: 1. Changes of chronic medical renal disease. 2. A 1.2 cm nonobstructive stone upper pole left kidney. 3. Underdistention of the bladder limits its evaluation.
== END | disposition home or self-care (01) ==
LOC: RADUSWWP 10:44
PROVIDERS: ATTEND Internal Medicine Nephrology
DX: N18.4 Chronic kidney disease, stage 4 (severe) (principal); N20.0 Calculus of kidney; N32.89 Other specified disorders of bladder
CPT/HCPCS: 76770

== ENCOUNTER 2021-12-08 07:02 | Observation (INO) | payer MEDICARE ==
[~2021-12-08 07:02] MED LIST changes: -ACETAMINOPHEN TAB 500 MG TAB PO ONE; +ACETAMINOPHEN TAB 500 MG TAB PO PRN; -GABAPENTIN 300 MG CAP PO ONE; +GABAPENTIN 300 MG CAP PO PRN; -MELOXICAM 7.5 MG TAB PO ONE; +MELOXICAM 7.5 MG TAB PO PRN; -ONDANSETRON 4 MG/2 ML VIAL IVP ONE; +ONDANSETRON 4 MG/2 ML VIAL IVP PRN; -TRANEXAMIC ACID 1,000 MG in SODIUM CHLORIDE 0.9% 100 ML IVPB ONE; +TRANEXAMIC ACID IN NACL,ISO-OS 1,000 MG in SALINE 1 100ML.BAG IVPB PRN
[2021-12-08] MEDS ORDERED: LIDOCAINE 1% (10MG/ML) FOR IV START INTRADERMA PRN (07:36)
[2021-12-08] MEDS ORDERED: ONDANSETRON 4 MG/2 ML VIAL IVP ONE (07:36)
[2021-12-08] MEDS ORDERED: DEXAMETHASONE SOD PHOSPHATE 4 MG/ML 1 ML VIAL IV ONE (07:36)
[2021-12-08] MEDS ORDERED: MIDAZOLAM 2 MG/2 ML VIAL IV PRN (07:36)
[2021-12-08] MEDS ORDERED: MIDAZOLAM 2 MG/2 ML VIAL IVP ONE (08:31)
[2021-12-08] MEDS ORDERED: DEXAMETHASONE SOD PHOSPHATE 4 MG/ML 1 ML VIAL ONE (09:35)
[2021-12-08] MEDS ORDERED: LIDOCAINE 1%-EPI 1:100,000 20 ML VIAL ONE (09:35)
[2021-12-08] MEDS ORDERED: ROPIVACAINE 5 MG/ML 30 ML VIAL ONE (09:35)
[2021-12-08] MEDS ORDERED: MIDAZOLAM 2 MG/2 ML VIAL ONE (09:35)
[2021-12-08] MEDS ORDERED: TRANEXAMIC ACID IN NACL,ISO-OS 1,000 MG/100 ML BAG ONE (09:35)
[2021-12-08] MEDS ORDERED: PROPOFOL 10 MG/ML 20 ML VIAL IV ONE (09:35)
[2021-12-08] MEDS ORDERED: ePHEDrine 50 MG/ML 1 ML VIAL ONE (09:35)
[2021-12-08] MEDS ORDERED: LACTATED RINGERS 900 ML IV ONE (09:39)
[2021-12-08] MEDS ORDERED: ceFAZolin 3,000 MG in SODIUM CHLORIDE 0.9% IRRIGATIO 3,000 ML IRRIGATION ONE (09:40)
[2021-12-08] MEDS ORDERED: NALOXONE 0.4 MG/ML 1 ML VIAL IV PRN (09:41)
[2021-12-08] MEDS ORDERED: HYDROcodone/APAP 5-325MG 1 EACH TAB PO PRN (09:41)
[2021-12-08] MEDS ORDERED: MAGNESIUM HYDROXIDE 2,400 MG/10 ML CUP PO PRN (09:41)
[2021-12-08] MEDS ORDERED: diazePAM 5 MG TAB PO PRN (09:41)
[2021-12-08] MEDS ORDERED: traMADol 50 MG TAB PO PRN (09:41)
[2021-12-08] MEDS ORDERED: HYDROmorphone 0.5 MG/0.5 ML SYRINGE IVP PRN ×2 (09:41)
[2021-12-08] MEDS ORDERED: NA PHOS,M-B/NA PHOS,DI-BA 133 ML ENEMA RECTAL PRN (09:41)
[2021-12-08] MEDS ORDERED: ACETAMINOPHEN TAB 325 MG TAB PO PRN (09:41)
[2021-12-08] MEDS ORDERED: bisacodyL 10 MG SUPP RECTAL PRN (09:41)
[2021-12-08] MEDS ORDERED: ONDANSETRON 4 MG/2 ML VIAL IVP PRN (09:41)
[2021-12-08] MEDS ORDERED: ROPIVACAINE 0.2%-NS ON-Q PUMP 1,090 MG, EMPTY PAIN BALL 1 EACH MISCELLANE PRN (11:30)
--- NOTE | 2021-12-08 12:20 | XR ---
EXAMINATION TYPE: XR knee limited RT DATE OF EXAM: 12/08/2021 12:11 PM INDICATION: Patient age:Female; 70 years old; Reason for study: Evaluation for Postop abnormality and alignment; PHH. COMPARISON: None. TECHNIQUE: The Right knee(s) was examined in frontal and lateral projections. FINDINGS: Post surgical changes from right total knee arthroplasty with femoral and tibial component s. There appears reprobed and alignment. Subcutaneous gas is demonstrated which is not unexpected in the setting of recent surgery. No joint effusion identified. Minimal soft tissue swelling. IMPRESSION: Postsurgical changes from total right knee arthroplasty. Hardware appears in a secondary alignment.
[2021-12-08] MEDS ORDERED: HYDROmorphone 0.5 MG/0.5 ML SYRINGE IVP ONE (12:45)
[2021-12-08] MEDS: HYDROmorphone 0.5 MG/0.5 ML SYRINGE IVP PRN ×4 (13:06→19:34)
[2021-12-08] MEDS ORDERED: diphenhydrAMINE 50 MG/ML 1 ML VIAL IVP ONE (13:33)
[2021-12-08] MEDS: LACTATED RINGERS 1,000 ML IV SCH ×2 (15:40→15:51)
[2021-12-08] MEDS: HYDROcodone/APAP 10-325MG 1 EACH TAB PO PRN ×2 (17:37→22:59)
[2021-12-08] MEDS: SENNOSIDES-DOCUSATE SODIUM 1 EACH TAB PO SCH (19:26)
--- NOTE | 2021-12-08 20:27 | OP ---
OPERATIVE REPORT DATE OF PROCEDURE: 12/08/2021 SURGEON: Bala Collins M.D. HEALTH CARE RECRUITER: Mango Adhikari PA-C PREOPERATIVE DIAGNOSIS: Right knee osteoarthrosis. POSTOP DIAGNOSIS: Right knee osteoarthrosis. OPERATION: Right total knee arthroplasty. ANESTHESIA: Spinal with sedation. ESTIMATED BLOOD LOSS: 100 mL. TOURNIQUET: Tourniquet time was 48 minutes at 250 mmHg. COMPLICATIONS: None apparent. DRAINS: None. DISPOSITION: Post-Anesthesia Care Unit. INDICATIONS: Thuy is a very pleasant 70-year-old female with longstanding history of right knee pain. History and physical examination are consistent with advanced right knee osteoarthrosis. She has been through significant operative management up to this point. Surgical options were discussed and she has decided to go forward with right total knee arthroplasty. The risks of the procedure were discussed with her in detail. These risks include but are not limited to risk of infection, nerve damage, bleeding, pain, and a small risk of deep vein thrombosis which could lead to fatal pulmonary embolism. There is also a risk of loosening of the implant which could require revision operation. The patient understands these risks. All of her questions were answered to her satisfaction. Appropriate informed consent was obtained. DESCRIPTION OF PROCEDURE: The patient was identified in the preoperative holding area. Surgical site was marked by both the patient and myself. She was given 2 grams of Ancef IV for prophylactic purposes. She was then transported to the operative suite. She was placed supine on the operating room table. A spinal anesthetic was then administered and dosed per the anesthesia department without apparent complication. Examination under anesthesia was then performed. The patient was 2 to 3 degrees shy of full extension. She had 95 degrees of flexion, and the medial collateral ligament, lateral collateral ligament and posterior cruciate ligaments were stable. A tourniquet was then placed high on the right upper thigh, well padded in preparation for surgery. The patient's right lower extremity was then prepped and draped in the usual sterile fashion. A standard surgical pause was undertaken to ensure that we were operating on the correct site and that appropriate preoperative antibiotics had been given. All staff in the room were in agreement and we proceeded. The outlines of the patella were marked with a surgical pen. A planned 12 cm vertical incision centered over the patella was marked with a surgical pen. The leg was then exsanguinated with an Esmarch dressing. The knee was then flexed and the tourniquet was inflated to 250 mmHg. The total tourniquet time for the procedure was 48 minutes. The incision was then made with a 10-blade scalpel. Dissection was carried down sharply to the overlying fascia. Great care was taken to minimize the skin flaps. The knee was then exposed using a standard medial parapatellar approach. A small cuff of quadriceps tendon was then left for suturing. She was in a bit of varus preoperatively. A standard medial release was then made. The superficial medial collateral ligament was dissected off of the bone and around to the posterior aspect of the proximal tibia. The medial meniscus was then excised as well. The lateral meniscus was also released anteriorly. The leg was then externally rotated. The patella was everted. The knee was flexed. Retractors were then placed to protect the collateral ligaments. I then proceeded to remove the infrapatellar fat pad. This was excised sharply tangentially with the fibers of the patellar tendon. I then proceeded to remove the peripheral osteophytes. This was done with a rongeur. I then proceeded with distal femoral resection. She did have near-full extension. A planned 9 mm resection was then done. The femoral canal was then entered in the midline of the femur approximately 10 mm anterior to the origin of the posterior cruciate ligament. The iftikhar was then advanced down to the center of the femur and placed intramedullary. Based on the preoperative radiographs, the angle between the anatomic and mechanical axis of the femur was approximately 4 to 5 degrees. The valgus angle of the distal femoral cutting guide was then set at 4 degrees for the right knee. The distal femoral cutting guide was then advanced over the intramedullary iftikhar. This was seated firmly against the femur. I then, as mentioned, planned to take 9 mm off the distal femur. The cutting block was then secured onto the femur with pins. The jig was then removed. The distal femoral cut was made through the slot of the block. The pins were then removed and the distal femoral cutting block was removed. The accuracy of the distal femoral cuts was checked with two flat bars. I then proceeded with femoral sizing. The posterior referencing sizing guide was held firmly against the resected distal surface of the femur. The posterior condyles were resting on the posterior plane of the guide. The sizing stylus was then placed onto the anterior femur. The size was measured as a size 6. I then assessed for femoral rotation. The plan was for 3 degrees of external rotation. Three degrees of external rotation was placed onto the jig. These holes were then marked. I then confirmed the rotation by 3 separate methods. This was done using the epicondylar axis as well as Whitesides line and posterior referencing. It was deemed that the external rotation was proper. I then went forward with placing the femoral cutting block. This was placed over the previously placed pin holes. The Moiz wing was then placed onto the anterior slots to ensure that we would not notch the anterior femur with the anterior femoral cut. I then proceeded with the anterior femoral cut. This was flush with the anterior cortex of the femur. Posterior cuts were then made followed by the anterior chamfer cut and then the posterior chamfer cut. The cutting block was then removed. Throughout the resection, the collateral ligaments were protected with retractors. I then placed a trial size 6 femur. It was slightly wide, but the narrow fit very nicely and it fit flush with the distal end of the femur. The drill holes were then made. I then proceeded with the tibial cut. I planned for a cruciate-retaining knee. The guide was placed and set for varus, valgus and for slope. Height was set for an approximate 2 mm resection from the medial tibial plateau, which was the lower side. I was happy with the alignment and the amount of resection. The cutting block was then pinned to the proximal tibia. The alignment iftikhar was removed and the proximal tibia was resected with a reciprocating saw. Again this was done with retractors protecting the collateral ligaments as well as the posterior cruciate ligament. I then proceeded to evaluate the flexion and extension gaps. A 10 mm block was then placed. The flexion and extension gaps were equal. I then proceeded with resection of the posterior osteophytes. She had very minimal posterior osteophytes. This was done using a curved osteotome. This resected the posterior osteophytes, and posterior capsule stripping was done off the posterior aspect of the femur at this time. The osteophytes were then removed. I then proceeded with resection of the patella. The thickness of the patella was measured using the caliper. The thickness was 22 mm. The thickness of the anticipated patellar dome was taken into account. Resection was then performed and confirmed to be equal in 4 quadrants using a caliper. Approximately 14 mm of bone remained after resection. A 29 x 8 standard patellar trial was then placed. The holes were drilled and the trial was then placed. I then proceeded with sizing the tibial plate. A size C tibial plate fit very nicely. I then placed the trial femur, the tibial tray and the patellar button. A 10 mm trial tibial insert was also placed. The components fit very nicely. She had full extension and flexion. The extension and flexion gaps were equal and stable to both varus and valgus stress. The patella tracked appropriately. The tibial tray rotation was then marked with a Bovie. This was externally rotated properly. I then proceeded with tibial preparation. I first drilled the femoral holes and removed the femoral component. The tibial tray was then set for proper external rotation as well as medial and lateral placement onto the tibia. It was then pinned into place. I then proceeded with punching the keel. I then decided to proceed with cementing of all of our components. The knee was thoroughly irrigated with sterile saline solution via pulse lavage. The lateral geniculate artery was identified and cauterized. All blood was removed from the bone of the tibia, femur and patella with pulse lavage. I then proceeded with cementing. One pack of antibiotic bone cement were prepared on the back table by the surgical garment assembly supervisor. I then proceeded with cementing of the tibia first. The cement was impacted into the keel as well as deeply seated into the bone. A second coat of cement was then placed. The tibia was then impacted into place. Excess cement was removed with [place]'s and Joker's. I then proceeded with cementing of the femoral component. The femoral component was also cemented using standard technique. Excess cement was removed. A 10 mm trial insert was then placed into the knee. It was brought into full extension with a constant axial load placed until the cement had hardened. The patellar component was then cemented. This was held firmly with a compressive device until the cement had dried. When the cement had dried, the knee was taken out of extension. All excess cement was removed from around the prosthesis. I then trialed the knee with a 10 mm insert. Flexion and extension gaps were appropriate. The knee was stable. It came into full extension. I decided to go forward with a 10 mm medial-congruent, cross-linked, cruciate-retaining tibial insert. Polyethylene was then placed onto the tibial tray and locked into place. The knee was then reduced. The knee was again further irrigated with sterile saline solution with antibiotic added. The tourniquet was then deflated. Total tourniquet time for the procedure was 48 minutes at 250 mmHg. The final components were Cleve Persona size 6 narrow cruciate-retaining femoral component, a size C tibial tray, a 10 mm medial- congruent, cruciate-retaining polyethylene insert and a 29 x 8 mm patella. I then proceeded with closure. Again the knee was thoroughly irrigated. The quadriceps tendon and the medial retinaculum were reapproximated with #2 Ethibond suture. The extensor mechanism was then closed with a running #2 Quill suture. Subcutaneous tissues were closed with 2-0 Vicryl interrupted suture. The skin was closed with a running 3-0 Quill suture. Dermabond was applied to the incision. Sterile compressive dressings were applied. All sponge and needle counts were deemed correct prior to closure. The patient tolerated the procedure without apparent complication. She was transferred to the recovery room in stable condition. MMODL / IJN: [id number] /
[2021-12-09] MEDS: LACTATED RINGERS 1,000 ML IV SCH ×4 (00:26→13:34)
[2021-12-09] MEDS: HYDROmorphone 0.5 MG/0.5 ML SYRINGE IVP PRN ×4 (00:33→21:34)
[2021-12-09] MEDS: HYDROcodone/APAP 10-325MG 1 EACH TAB PO PRN (05:57)
--- NOTE | 2021-12-09 07:12 | P.ANPRN ---
Procedure Note - Anesthesia - Nerve Block Performed Right Adductor Canal Infusion Time Out Performed: Yes Date of Procedure: 12/08/21 Procedure Start Time: 08:30 Procedure Stop Time: 08:49 Location of Patient: PreOp Indication: Acute Post-Operative Pain, Requested by Surgeon Sedation Type: Sedate with meaningful contact maintained Preparation: Sterile Prep, Sterile Dressing Position: Supine Catheter: Indwelling Needle Types: Pajunk Needle Gauge: 21 Ultrasound used to visualize needle placement: Yes Ultrasound used to observe medication spread: Yes Blood Aspirated: No Pain Paresthesia on Injection Noted: No Resistance on Injection: Normal Image Stored and Saved: Yes Events: Uneventful and Well Tolerated (ropi .5% 20cc)
--- NOTE | 2021-12-09 07:13 | P.ANPRN ---
Procedure Note - Anesthesia - Nerve Block Performed Right Erector Spinae Single Time Out Performed: Yes Date of Procedure: 12/08/21 Procedure Start Time: 08:50 Procedure Stop Time: 08:53 Location of Patient: PreOp Indication: Acute Post-Operative Pain, Requested by Surgeon Sedation Type: Sedate with meaningful contact maintained Preparation: Sterile Prep Position: Supine Needle Types: Pajunk Needle Gauge: 21 Ultrasound used to visualize needle placement: Yes Ultrasound used to observe medication spread: Yes Blood Aspirated: No Pain Paresthesia on Injection Noted: No Resistance on Injection: Normal Image Stored and Saved: Yes Events: Uneventful and Well Tolerated (ropi .5% 20cc plus dexamethasone 4mg)
--- NOTE | 2021-12-09 07:38 | P.PN ---
Progress Note - Text 12/09/21 721am 70-year-old female status post total knee replacement by Dr. Collins. Patient seen and evaluated for postop pain control, patient has an On-Q pump with solution running at 8 mL an hour with a VAS of 9. Dressing clean dry and intact patient is sitting in her bed looking very comfortable and is browsing on her for, I don't believe pain score. Plan to continue On-Q pump infusion
[2021-12-09] MEDS: RIVAROXABAN 10 MG TAB PO SCH (07:53)
[2021-12-09 08:35] LABS: Basophils # (A) 0.03 X 10*3/uL (0.00-0.10); Basophils % (A) 0.3 %; Eosinophils # (A) 0 X 10*3/uL (0.04-0.35); Eosinophils % (A) 0 %; HCT 34.1 % (37.2-46.3); HGB 10.4 g/dL (12.0-15.0); Immature Grans, Automated 0.6 %; Lymphocytes # (A) 1.45 X 10*3/uL (0.90-5.00); Lymphocytes % (A) 13.7 %; MCH 27.8 pg (27.0-32.0); MCHC 30.5 g/dL (32.0-37.0); MCV 91.2 fL (80.0-97.0); Mean Platelet Volume 10.3 fL (9.5-12.2); Monocytes % (A) 4.7 %; NRBC Per 100 WBC 0 /100 WBCS (0.0-0.0); Neutrophils # (A) 8.56 X 10*3/uL (1.80-7.70); Neutrophils % (A) 80.7 %; Platelet Count 151 X 10*3/uL (140-440); RBC 3.74 X 10*6/uL (4.10-5.20); RDW 15.3 % (11.5-14.5)
[2021-12-09] MEDS: MULTIVITAMINS, THERA 1 EACH TAB PO SCH (11:08)
[2021-12-09] MEDS: oxyCODONE-APAP 7.5-325MG 1 EACH TAB PO PRN ×2 (11:12→14:21)
--- NOTE | 2021-12-09 12:22 | P.PN ---
Subjective Progress Note Date: 12/09/21 Principal diagnosis: Right TKA Patient is seen at bedside this morning. She is postop day #1 from right total knee arthroplasty. She has pain at the surgical site as expected but denies any new complaints. She denies numbness, tingling or calf pain. Review of systems is negative for fever, chills, chest pain, shortness of breath or other Objective - Vital Signs Vital signs: Vital Signs Temp 98.5 F 12/09/21 08:00 Pulse 65 12/09/21 08:00 Resp 18 12/09/21 08:30 BP 129/76 12/09/21 08:00 Pulse Ox 99 12/09/21 08:00 FiO2 Intake & Output 12/08/21 12/09/21 12/09/21 18:59 06:59 18:59 Intake Total 951 50 200 Output Total 100 Balance 851 50 200 Weight 71.4 kg Intake: IV 951 Intake, IV Titration 50 Amount ceFAZolin 2 gm In Sodium 50 Chloride 0.9% 50 ml @ 100 mls/hr IVPB ONCE PRN Rx# :[id number] Oral 200 Output: Estimated Blood Loss 100 Other: Voiding Method Toilet # Voids 1 1 - Exam Inspection reveals a benign surgical wound. There is no active bleeding or drainage. Neurovascular status is intact throughout the lower extremity with motor and sensation fully intact. Calf is soft and nontender. 2+ dorsalis pedis pulse and less than 2 second cap refill is present. - Constitutional General appearance: Present: no acute distress - Labs CBC & Chem 7: 12/09/21 05:47 Labs: Abnormal Lab Results - Last 24 Hours (Table) 12/09/21 Range/Units 05:47 WBC 10.60 H (4.50-10.00) X 10*3/uL RBC 3.74 L (4.10-5.20) X 10*6/uL Hgb 10.4 L (12.0-15.0) g/dL Hct 34.1 L (37.2-46.3) % MCHC 30.5 L (32.0-37.0) g/dL RDW 15.3 H (11.5-14.5) % Immature Gran # 0.06 H (0.00-0.04) X 10*3/uL Neutrophils # 8.56 H (1.80-7.70) X 10*3/uL Eosinophils # 0 L (0.04-0.35) X 10*3/uL Assessment and Plan (1) Status post total right knee replacement Narrative/Plan: She will continue with routine postop orthopedic protocol including pain management, wound care, PT, DVT prophylaxis and medical management. Expect that she will transfer to home in next 1-2 days Current Visit: Yes Status: Acute Priority: Medium Code(s): Z96.651 - PRESENCE OF RIGHT ARTIFICIAL KNEE JOINT SNOMED Code(s): 4807909341006 Time with Patient: Less than 30
[2021-12-09] MEDS ORDERED: PROMETHAZINE 25 MG TAB PO PRN (16:19)
[2021-12-09] MEDS: carvediloL 3.125 MG TAB PO SCH (18:09)
[2021-12-09] MEDS: LEVOTHYROXINE 88 MCG TAB PO SCH (18:09)
[2021-12-09] MEDS: levETIRAcetam 250 MG TAB PO SCH (18:10)
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
[2021-12-09] MEDS ORDERED: traZODone HCL 100 MG TAB PO SCH (21:00)
[2021-12-09] MEDS: SENNOSIDES-DOCUSATE SODIUM 1 EACH TAB PO SCH (21:34)
[2021-12-09] MEDS: MAGNESIUM OXIDE 400 MG TAB PO SCH (21:34)
[2021-12-09] MEDS: levETIRAcetam 500 MG TAB PO SCH (21:34)
[2021-12-09] MEDS: traZODone HCL 50 MG TAB PO SCH (22:43)
[2021-12-10] MEDS: oxyCODONE-APAP 7.5-325MG 1 EACH TAB PO PRN ×4 (01:08→23:32)
[2021-12-10] MEDS: LACTATED RINGERS 1,000 ML IV SCH ×4 (01:25→20:30)
[2021-12-10] MEDS: HYDROmorphone 0.5 MG/0.5 ML SYRINGE IVP PRN (03:04)
[2021-12-10] MEDS: HYDROcodone/APAP 10-325MG 1 EACH TAB PO PRN ×2 (06:11→16:45)
[2021-12-10] MEDS: LEVOTHYROXINE 88 MCG TAB PO SCH (06:11)
[2021-12-10] MEDS: RIVAROXABAN 10 MG TAB PO SCH (09:26)
[2021-12-10] MEDS: FOLIC ACID 1 MG TAB PO SCH (09:26)
[2021-12-10] MEDS: carvediloL 3.125 MG TAB PO SCH ×2 (09:26→16:50)
[2021-12-10] MEDS: levETIRAcetam 250 MG TAB PO SCH (09:26)
--- NOTE | 2021-12-10 09:37 | P.PN ---
Subjective Progress Note Date: 12/10/21 Principal diagnosis: Status post right total knee arthroplasty This is a 70 year-old female post right total knee arthroplasty. This is post- op day 2. The patient was evaluated at the bedside today. The patient denies nausea, vomiting, abdominal pain, chest pain, or shortness of breath this morning. She states her pain is still not controlled at this time. The patient has been up to the bathroom and is ambulating well. Objective - Vital Signs Vital signs: Vital Signs Temp 98.5 F 12/10/21 08:00 Pulse 87 12/10/21 08:00 Resp 18 12/10/21 08:00 BP 126/80 12/10/21 08:00 Pulse Ox 95 12/10/21 08:00 FiO2 Intake & Output 12/09/21 12/10/21 12/10/21 18:59 06:59 18:59 Intake Total 200 Balance 200 Intake: Oral 200 Other: Voiding Method Toilet Toilet # Voids 3 2 # Bowel Movements 1 - Exam The patient does not appear in acute distress. Alert and orientated x3. Dressing is clean dry and intact. Incision appears fine with no erythema or active drainage. Calf is soft and nontender. Good foot and ankle motion without difficulty. Sensation and circulatory status is intact. - Labs CBC & Chem 7: 12/09/21 05:47 Assessment and Plan (1) Osteoarthritis of right knee Current Visit: Yes Status: Acute Code(s): M17.11 - UNILATERAL PRIMARY OSTEOARTHRITIS, RIGHT KNEE SNOMED Code(s): 057700408536114 (2) Status post total right knee replacement Current Visit: Yes Status: Acute Priority: Medium Code(s): Z96.651 - PRESENCE OF RIGHT ARTIFICIAL KNEE JOINT SNOMED Code(s): 5616134086329 Plan: 1. Continue pain control. We will add Oxy ER q12 hours with Percocet PRN. 2. Anticoagulation with Xarelto 3. Continue physical therapy and ambulation 4. Anticipate discharge home tomorrow
[2021-12-10] MEDS: oxyCODONE ER 10 MG TAB.ER.12H PO SCH ×2 (10:27→20:29)
[2021-12-10] MEDS: MULTIVITAMINS, THERA 1 EACH TAB PO SCH (12:26)
[2021-12-10] MEDS ORDERED: polyethylene glycoL 3350 17 GM POWD.PACK PO PRN (17:36)
--- NOTE | 2021-12-10 17:37 | P.PN ---
Subjective This is a pleasant 70 years old female with past medical history of deep venous thrombosis and pulmonary embolism on Xarelto, seizure disorder, hypothyroidism, hypertension, was admitted for severe osteoarthritis of the right knee status post total right knee placement. Today is postoperative day #1. Patient is still complaining of from significant pain anesthesia team following him closely. Also patient continued on pain management. Patient denies any other symptoms. No chest pain or abdominal pain. No diarrhea or vomiting. She is hemodynamically stable and blood pressure is 154/78, patient resumed her home medication including Coreg. She is not on IV fluid. She is on Her home dose of Xarelto has resumed Hemoglobin is 10.4 and WBC 10.6 12/10/2021 Patient clinically doing well however she still complaining from significant pain in her right knee Surgery team placed the patient on OxyContin today. Percocet did not work well for the patient. She is still constipated and wants stool softener Objective - Vital Signs Vital signs: Vital Signs Temp 98.5 F 12/10/21 08:00 Pulse 87 12/10/21 08:00 Resp 18 12/10/21 08:00 BP 126/80 12/10/21 08:00 Pulse Ox 95 12/10/21 08:00 FiO2 Intake & Output 12/09/21 12/10/21 12/10/21 18:59 06:59 18:59 Intake Total 200 Balance 200 Intake: Oral 200 Other: Voiding Method Toilet Toilet # Voids 3 2 # Bowel Movements 1 - Exam GENERAL: The patient is alert and oriented x3, not in any acute distress. Well developed, well nourished. HEENT: Pupils are round and equally reacting to light. EOMI. No scleral icterus. No conjunctival pallor. Normocephalic, atraumatic. No pharyngeal erythema. No thyromegaly. CARDIOVASCULAR: S1 and S2 present. No murmurs, rubs, or gallops. PULMONARY: Chest is clear to auscultation, no wheezing or crackles. ABDOMEN: Soft, nontender, nondistended, normoactive bowel sounds. No palpable organomegaly. MUSCULOSKELETAL: No joint swelling or deformity. -EXTREMITIES: No cyanosis, clubbing, or pedal edema. right knee surgical wound with dressing in place, rest of exam is deferred to surgery team NEUROLOGICAL: Gross neurological examination did not reveal any focal deficits. SKIN: No rashes. no petechiae. - Labs CBC & Chem 7: 12/09/21 05:47 Assessment and Plan Assessment: Severe osteoarthritis status post right total knee arthroplasty. Postop day #1 expected postop anemia Hypertension History of seizure Hypothyroidism History of DVT and pulmonary embolism on Xarelto Obesity with BMI of 30.7. CTD, stage III Plan: This is a pleasant 70 years old female status post right total knee arthroplasty. Continue with pain management as per primary team Anesthesia team also follow the patient closely. Resume blood pressure on seizure medication. Labs and medication were reviewed.. Continue same treatment. Continue with symptomatic treatment. Resume home medication. Monitor lytes and vitals. DVT and GI prophylaxis. Further recommendations as per clinical course of the patient DVT prophylaxis: Xarelto GI Prophylaxis: Kathy thank you for consulting
[2021-12-10] MEDS: SENNOSIDES-DOCUSATE SODIUM 1 EACH TAB PO SCH (20:29)
[2021-12-10] MEDS: traZODone HCL 50 MG TAB PO SCH (20:29)
[2021-12-10] MEDS: MAGNESIUM OXIDE 400 MG TAB PO SCH (20:29)
[2021-12-10] MEDS: levETIRAcetam 500 MG TAB PO SCH (20:31)
[2021-12-10] MEDS ORDERED: DOCUSATE 100 MG CAP PO SCH (21:00)
[2021-12-11] MEDS: oxyCODONE-APAP 7.5-325MG 1 EACH TAB PO PRN ×2 (06:16→12:33)
[2021-12-11] MEDS: LEVOTHYROXINE 88 MCG TAB PO SCH (06:16)
[2021-12-11] MEDS: RIVAROXABAN 10 MG TAB PO SCH (07:48)
[2021-12-11] MEDS: oxyCODONE ER 10 MG TAB.ER.12H PO SCH (07:48)
[2021-12-11] MEDS: FOLIC ACID 1 MG TAB PO SCH (07:49)
[2021-12-11] MEDS: carvediloL 3.125 MG TAB PO SCH (07:49)
[2021-12-11] MEDS: levETIRAcetam 250 MG TAB PO SCH (07:49)
[2021-12-11] MEDS: LACTATED RINGERS 1,000 ML IV SCH ×2 (07:52)
[2021-12-11 08:01] VITALS: BP 129/81; PULSE 72; RESP 20; TEMP 98.8
[2021-12-11 10:30] LABS: Basophils # (A) 0.01 X 10*3/uL (0.00-0.10); Basophils % (A) 0.2 %; Eosinophils # (A) 0.09 X 10*3/uL (0.04-0.35); HCT 34.9 % (37.2-46.3); HGB 10.5 g/dL (12.0-15.0); Immature Grans, Automated 0.2 %; Lymphocytes # (A) 1.16 X 10*3/uL (0.90-5.00); Lymphocytes % (A) 25.8 %; MCH 27.9 pg (27.0-32.0); MCHC 30.1 g/dL (32.0-37.0); MCV 92.6 fL (80.0-97.0); Mean Platelet Volume 10.7 fL (9.5-12.2); Monocytes # (A) 0.37 X 10*3/uL (0.20-1.00); Monocytes % (A) 8.2 %; NRBC Per 100 WBC 0 /100 WBCS (0.0-0.0); Neutrophils # (A) 2.86 X 10*3/uL (1.80-7.70); Neutrophils % (A) 63.6 %; Platelet Count 122 X 10*3/uL (140-440); RBC 3.77 X 10*6/uL (4.10-5.20); RDW 15.3 % (11.5-14.5)
--- NOTE | 2021-12-11 10:37 | P.DS ---
Providers Date of admission: 12/09/21 07:32 Expected date of discharge: 12/11/21 Attending physician: Bala Collins Consults: 12/08/21 09:41 Consult Physician Routine Consulting Provider: Edward Joy Consult Reason/Comments: post op medical management Do you want consulting provider notified?: Yes Primary care physician: Alicja Monaco - Discharge Diagnosis(es) (1) Osteoarthritis of right knee Current Visit: Yes Status: Acute (2) Status post total right knee replacement Current Visit: Yes Status: Acute Priority: Medium Hospital Course: This is a pleasant 70-year-old female last seen in our office with complaints of right knee pain. Patient has known history of degenerative arthritis of the right knee and presented to discuss options. After discussion and consider ation, patient elected to proceed with a total knee arthroplasty of the right knee. The patient was seen preoperatively and medically cleared for surgery by her primary care physician. The patient was admitted to [facility] and underwent right total knee arthroplasty on 12/11/[address] Collins. The procedure was performed without complications or sequelae. The patient has done well postoperatively. The patient was seen and evaluated at bedside today and denies any new complaints. Pain is reasonably controlled. Dressing is clean dry and intact. Incision looks fine with no erythema or active drainage. Calf is soft and nontender. The patient has full foot and ankle motion without difficulty. Patient's right lower extremity is neurovascular intact. Patient is orthopedically stable for discharge to home today. Pertinent Studies: Laboratory Tests 12/11/21 05:30 WBC 4.50 RBC 3.77 L Hgb 10.5 L Hct 34.9 L Patient Condition at Discharge: Stable Plan - Discharge Summary Discharge Rx Participant: No New Discharge Prescriptions: New Aspirin 81 mg PO BID #60 tab Docusate [Colace] 100 mg PO BID #60 capsule oxyCODONE HCL/ACETAMINOPHEN [Percocet 5-325 mg] 1 tab PO Q4-6H PRN #30 tab PRN Reason: Pain oxyCODONE ER [OxyCONTIN] 10 mg PO Q12HR 3 Days #6 tab No Action Folic Acid 1 mg PO DAILY traZODone HCL [Desyrel] 100 mg PO HS carvediloL [Coreg] 3.125 mg PO BID Levothyroxine Sodium [Synthroid] 88 mcg PO QAM Rivaroxaban [Xarelto] 20 mg PO HS levETIRAcetam [Keppra] 500 mg PO HS Magnesium Oxide [Mag-Ox] 400 mg PO HS levETIRAcetam [Keppra] 250 mg PO QAM Potassium Chloride 10 meq PO DAILY Areds Ii 1 tab PO DAILY Doxycycline Hyclate [Vibramycin] 100 mg PO BID Sodium Bicarbonate Tab 650 mg PO BID #60 tab Multivitamins, Thera [Multivitamin (formulary)] 1 tab PO DAILY calcitrioL [Calcitriol] 0.245 mg PO MOWEFR Discharge Medication List Folic Acid 1 mg PO DAILY 07/27/15 [History] Levothyroxine Sodium [Synthroid] 88 mcg PO QAM 01/22/20 [History] Rivaroxaban [Xarelto] 20 mg PO HS 01/22/20 [History] carvediloL [Coreg] 3.125 mg PO BID 01/22/20 [History] traZODone HCL [Desyrel] 100 mg PO HS 01/22/20 [History] Doxycycline Hyclate [Vibramycin] 100 mg PO BID 09/22/20 [History] Magnesium Oxide [Mag-Ox] 400 mg PO HS 09/22/20 [History] levETIRAcetam [Keppra] 500 mg PO HS 09/22/20 [History] Sodium Bicarbonate Tab 650 mg PO BID #60 tab 09/23/20 [Rx] Areds Ii 1 tab PO DAILY 12/02/21 [History] Multivitamins, Thera [Multivitamin (formulary)] 1 tab PO DAILY 12/02/21 [History] Potassium Chloride 10 meq PO DAILY 12/02/21 [History] calcitrioL [Calcitriol] 0.245 mg PO MOWEFR 12/02/21 [History] levETIRAcetam [Keppra] 250 mg PO QAM 12/02/21 [History] Aspirin 81 mg PO BID #60 tab 12/11/21 [Rx] Docusate [Colace] 100 mg PO BID #60 capsule 12/11/21 [Rx] oxyCODONE ER [OxyCONTIN] 10 mg PO Q12HR 3 Days #6 tab 12/11/21 [Rx] oxyCODONE HCL/ACETAMINOPHEN [Percocet 5-325 mg] 1 tab PO Q4-6H PRN #30 tab 12/11/21 [Rx] Follow up Appointment(s)/Referral(s): [facility], [NON-STAFF] - As Needed ([facility] will call you to schedule your in home physical therapy visits. ) Bala Collins MD [STAFF PHYSICIAN] - 10 Days Activity/Diet/Wound Care/Special Instructions: Weight bear as tolerated May shower after 3 days if no bleeding Keep wound clean and dry Take meds as directed F/U with Dr. Collins in office Discharge Disposition: HOME WITH HOME HEALTH SERVICES
--- NOTE | 2021-12-11 16:48 | P.PN ---
Subjective This is a pleasant 70 years old female with past medical history of deep venous thrombosis and pulmonary embolism on Xarelto, seizure disorder, hypothyroidism, hypertension, was admitted for severe osteoarthritis of the right knee status post total right knee placement. Today is postoperative day #1. Patient is still complaining of from significant pain anesthesia team following him closely. Also patient continued on pain management. Patient denies any other symptoms. No chest pain or abdominal pain. No diarrhea or vomiting. She is hemodynamically stable and blood pressure is 154/78, patient resumed her home medication including Coreg. She is not on IV fluid. She is on Her home dose of Xarelto has resumed Hemoglobin is 10.4 and WBC 10.6 12/10/2021 Patient clinically doing well however she still complaining from significant pain in her right knee Surgery team placed the patient on OxyContin today. Percocet did not work well for the patient. She is still constipated and wants stool softener 12/11/2021 Patient is clinically doing well, Right hip pain from surgery is improvement however not completely resolved. She told me she could walk with a walker with the help of the staff to the bathroom. She had bowel movement. No other complaint. She is medically stable. WBC is back to normal and hemoglobin is stable at 10.5. Hemodynamically stable. Objective - Vital Signs Vital signs: Vital Signs Temp 98.8 F 12/11/21 08:00 Pulse 72 12/11/21 08:00 Resp 20 12/11/21 08:00 BP 129/81 12/11/21 08:00 Pulse Ox 95 12/11/21 08:00 FiO2 Intake & Output 12/10/21 12/11/21 12/11/21 18:59 06:59 18:59 Other: Voiding Method Toilet # Voids 1 2 - Exam GENERAL: The patient is alert and oriented x3, not in any acute distress. Well developed, well nourished. HEENT: Pupils are round and equally reacting to light. EOMI. No scleral icterus. No conjunctival pallor. Normocephalic, atraumatic. No pharyngeal erythema. No thyromegaly. CARDIOVASCULAR: S1 and S2 present. No murmurs, rubs, or gallops. PULMONARY: Chest is clear to auscultation, no wheezing or crackles. ABDOMEN: Soft, nontender, nondistended, normoactive bowel sounds. No palpable organomegaly. MUSCULOSKELETAL: No joint swelling or deformity. -EXTREMITIES: No cyanosis, clubbing, or pedal edema. right knee surgical wound with dressing in place, rest of exam is deferred to surgery team NEUROLOGICAL: Gross neurological examination did not reveal any focal deficits. SKIN: No rashes. no petechiae. - Labs CBC & Chem 7: 12/11/21 05:30 Labs: Abnormal Lab Results - Last 24 Hours (Table) 12/11/21 Range/Units 05:30 RBC 3.77 L (4.10-5.20) X 10*6/uL Hgb 10.5 L (12.0-15.0) g/dL Hct 34.9 L (37.2-46.3) % MCHC 30.1 L (32.0-37.0) g/dL RDW 15.3 H (11.5-14.5) % Plt Count 122 L (140-440) X 10*3/uL Assessment and Plan Assessment: Severe osteoarthritis status post right total knee arthroplasty. Postop day #1 expected postop anemia Hypertension History of seizure Hypothyroidism History of DVT and pulmonary embolism on Xarelto Obesity with BMI of 30.7. CTD, stage III Plan: This is a pleasant 70 years old female status post right total knee arthroplasty. Continue with pain management as per primary team Anesthesia team also follow the patient closely. Resume blood pressure on seizure medication. Labs and medication were reviewed.. Continue same treatment. Continue with symptomatic treatment. Resume home medication. Monitor lytes and vitals. DVT and GI prophylaxis. Further recommendations as per clinical course of the patient DVT prophylaxis: Xarelto GI Prophylaxis: Kathy thank you for consulting, we will follow up with you
== END 2021-12-11 14:14 | disposition home health service (06) ==
LOC: OR 07:02 → 4SSUR 11:23 → OR 12-09 07:32
PROVIDERS: ADMIT Orthopaedic Surgery Sports Medicine; ATTEND Orthopaedic Surgery Sports Medicine
DX: M17.11 Unilateral primary osteoarthritis, right knee (principal); M25.761 Osteophyte, right knee; G89.18 Other acute postprocedural pain; G40.909 Epilepsy, unspecified, not intractable, without status epilepticus; E03.9 Hypothyroidism, unspecified; I12.9 Hypertensive chronic kidney disease with stage 1 through stage 4 chronic kidney disease, or unspecified chronic kidney disease; N18.30 Chronic kidney disease, stage 3 unspecified; M79.7 Fibromyalgia; K50.90 Crohn's disease, unspecified, without complications; F43.10 Post-traumatic stress disorder, unspecified; F32.A Depression, unspecified; F41.9 Anxiety disorder, unspecified; E66.9 Obesity, unspecified; Z86.718 Personal history of other venous thrombosis and embolism; Z86.711 Personal history of pulmonary embolism; Z90.710 Acquired absence of both cervix and uterus; Z98.84 Bariatric surgery status; Z96.652 Presence of left artificial knee joint; Z87.891 Personal history of nicotine dependence; Z80.6 Family history of leukemia; Z82.0 Family history of epilepsy and other diseases of the nervous system; Z79.01 Long term (current) use of anticoagulants; Z79.899 Other long term (current) drug therapy; Z79.82 Long term (current) use of aspirin; Z88.1 Allergy status to other antibiotic agents; Z88.0 Allergy status to penicillin; Z88.2 Allergy status to sulfonamides; Z68.30 Body mass index [BMI] 30.0-30.9, adult
CPT/HCPCS: 27447; 96376 ×4; 96374 ×2; 96361; 96372 ×4; 97116; 97161; 64999; 64448; 76942; 85025 ×2; 88300; 73560; G0378 ×4; C1776; C1713; J2250; J1200; J1100; J0690 ×3; J2405; J2795 ×2; J2704; J1170 ×3

== ENCOUNTER → 2022-10-16 | Outpatient (CLI) | payer MEDICARE ==
--- NOTE | 2022-10-17 08:17 | MM ---
Reason for Exam: Screening (asymptomatic). Last screening mammogram was performed 12 month(s) ago. Patient History: Menarche at age 12. First Full-Term at age 18. Left ovary removed at age 39. Right ovary removed at age 39. Hysterectomy at age 39. Postmenopausal. Patient used Progesterone for 10 years. Maternal cousin had breast cancer, age 50. Maternal aunt had breast cancer. Sister had breast cancer, age 68. Risk Values: Annemarie 5 year model risk: 3.3%. NCI Lifetime model risk: 8.4%. Prior Study Comparison: 04/25/2019 Bilateral Screening Mammogram, [facility]. 10/06/2020 Bilateral Screening Mammogram, [facility]. 10/14/2021 Bilateral MG 3D screening mammo w/cad, [facility]. Tissue Density: There are scattered fibroglandular densities. Findings: Analyzed By CAD. There is no suspicious group of microcalcifications or new suspicious mass in either breast. Overall Assessment: Negative, BI-RAD 1 Management: Screening Mammogram of both breasts in [address] [facility] will attempt to contact patient to return for supplemental views and ultrasound if indicated. Patient should continue monthly self-breast exams. A clinical breast exam by your physician is recommended on an annual basis. This exam should not preclude additional follow-up of suspicious palpable abnormalities. Note on Annemarie scores and lifetime risk: 1. A Annemarie score greater than 3% is considered moderate risk. If this is the case, consider specialist referral to assess eligibility for a risk reducing agent. 2. If overall lifetime risk for the development of breast cancer is 20% or higher, the patient may qualify for future screening with alternating mammogram and breast MRI. Electronically signed and approved by: Sanjay Carreon DO
== END | disposition home or self-care (01) ==
LOC: RADMAMWWP 07:00
PROVIDERS: ATTEND Internal Medicine
DX: Z12.31 Encounter for screening mammogram for malignant neoplasm of breast (principal); Z78.0 Asymptomatic menopausal state; Z80.3 Family history of malignant neoplasm of breast
CPT/HCPCS: 77063; 77067

== ENCOUNTER → 2023-04-02 | Outpatient (CLI) | payer MEDICARE ==
[2023-04-02 15:35] LABS: Basophils # (A) 0.09 X 10*3/uL (0.00-0.10); Basophils % (A) 1.4 %; Eosinophils # (A) 0.15 X 10*3/uL (0.04-0.35); Eosinophils % (A) 2.3 %; HCT 44.3 % (37.2-46.3); HGB 14.1 d/dL (12.0-15.0); Lymphocytes # (A) 2.49 X 10*3/uL (0.90-5.00); Lymphocytes % (A) 38.7 %; MCHC 31.8 d/dL (32.0-37.0); MCV 88.1 FL (80.0-97.0); Mean Platelet Volume 9.5 FL (9.5-12.2); Monocytes # (A) 0.41 X 10*3/uL (0.20-1.00); Monocytes % (A) 6.4 %; NRBC Per 100 WBC 0 X 10*3/uL (0.00-0.01); Neutrophils # (A) 3.28 X 10*3/uL (1.80-7.70); Neutrophils % (A) 50.9 %; Platelet Count 216 X 10*3/uL (140-440); RBC 5.03 X 10*6/uL (4.10-5.20); RDW 15.6 % (11.5-14.5); WBC 6.44 X 10*3/uL (4.50-10.00)
[2023-04-02 16:01] LABS: ALT 10 U/L (8-44); AST 22 U/L (13-35); Albumin 4.1 d/dL (3.8-4.9); Albumin/Globulin Ratio 1.71 Ratio (1.60-3.17); Alkaline Phosphatase 71 U/L (41-126); BUN/Creat Ratio 16.95 Ratio (12.00-20.00); Blood Urea Nitrogen 33.9 mg/dL (9.0-27.0); Calcium 9.4 mg/dL (8.7-10.3); Carbon Dioxide 19.5 mmol/L (21.6-31.8); Chloride 108 mmol/L (96-109); Globulin 2.4 d/dL (1.6-3.3); Glucose 85 mg/dL (70-110); Sodium 141 mmol/L (135-145); Total Bilirubin 0.7 mg/dL (0.3-1.2); Total Protein 6.5 d/dL (6.2-8.2)
[2023-04-02 16:20] LABS: Appearance,Urine Cloudy (Clear); Bilirubin,Urine Negative (Negative); Blood,Urine Negative (Negative); Color,Urine Yellow (Yellow); Ketones,Urine Negative (Negative); Nitrite,Urine Negative (Negative); Specific Gravity,Urine 1.017 (1.001-1.030); Urobilinogen,Urine 0.2 E.U./DL
[2023-04-02 16:42] LABS: Bacteria,Urine 2+ (None Seen); Calcium Oxalate Crystals,Urine Present (None Seen)
== END | disposition home or self-care (01) ==
LOC: LABPAT 09:47
PROVIDERS: ATTEND Urology
DX: Z01.812 Encounter for preprocedural laboratory examination (principal); N20.0 Calculus of kidney; R31.29 Other microscopic hematuria; R10.9 Unspecified abdominal pain
CPT/HCPCS: 80053; 81001; 85025; 86850; 86900; 86901; 87086

== ENCOUNTER 2023-05-09 05:48 | Day surgery (SDC) | payer MEDICARE ==
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
[~2023-05-09 05:48] MED LIST changes: -ACETAMINOPHEN TAB 500 MG TAB PO PRN; +DEXAMETHASONE SOD PHOSPHATE 4 MG/ML 1 ML VIAL IV ONE; -GABAPENTIN 300 MG CAP PO PRN; +GENTAMICIN 80 MG in SODIUM CHLORIDE 0.9% 100 ML IVPB PRN; +LIDOCAINE 1% (10MG/ML) FOR IV START INTRADERMA PRN; -MELOXICAM 7.5 MG TAB PO PRN; +ONDANSETRON 4 MG/2 ML VIAL IVP ONE; -ONDANSETRON 4 MG/2 ML VIAL IVP PRN; +Pre Op ABX Message 1 EACH MISC MISCELLANE ONE; -TRANEXAMIC ACID IN NACL,ISO-OS 1,000 MG in SALINE 1 100ML.BAG IVPB PRN
[2023-05-09] MEDS ORDERED: SODIUM CHLORIDE 0.9% 500 ML 500 ML IV ONE (06:32)
[2023-05-09] MEDS ORDERED: MIDAZOLAM 2 MG/2 ML VIAL IV PRN (07:00)
[2023-05-09] MEDS ORDERED: fentaNYL (PF) 50 MCG/ML 2 ML AMP ONE (07:29)
[2023-05-09] MEDS ORDERED: ePHEDrine 50 MG/ML 1 ML VIAL ONE (07:29)
[2023-05-09] MEDS ORDERED: LIDOCAINE 1% INJ 10MG/ML (20 ML MDV) ONE (07:29)
[2023-05-09] MEDS ORDERED: PROPOFOL 10 MG/ML 20 ML VIAL IV ONE (07:29)
[2023-05-09] MEDS ORDERED: ROCURONIUM 10 MG/ML (5 ML VIAL) IV ONE (07:29)
[2023-05-09] MEDS ORDERED: SUCCINYLCHOLINE CHLORIDE 200 MG/10 ML VIAL IV ONE (07:29)
[2023-05-09] MEDS ORDERED: GLYCOPYRROLATE 0.2 MG/ML 2 ML VIAL ONE (07:29)
[2023-05-09] MEDS ORDERED: MIDAZOLAM 2 MG/2 ML VIAL ONE (07:29)
[2023-05-09] MEDS ORDERED: NEOSTIGMINE 1 MG/ML 10 ML VIAL ONE (07:29)
[2023-05-09] MEDS ORDERED: IOPAMIDOL-370 100ML BTL MISCELLANE ONE (07:34)
[2023-05-09] MEDS ORDERED: ACETAMINOPHEN TAB 325 MG TAB PO PRN (08:50)
[2023-05-09] MEDS ORDERED: MAG HYDROX/AL HYDROX/SIMETH 30 ML CUP PO PRN (08:50)
[2023-05-09] MEDS ORDERED: ONDANSETRON 4 MG/2 ML VIAL IVP PRN (08:50)
[2023-05-09] MEDS ORDERED: NALOXONE 0.4 MG/ML 1 ML VIAL IV PRN (08:51)
--- NOTE | 2023-05-09 08:57 | P.OP ---
Date of Procedure: 05/09/23 Preoperative Diagnosis: Left renal stone large ( 2 cm) Postoperative Diagnosis: Same Procedure(s) Performed: Cystoscopy, placement of occluding balloon catheter left, percutaneous nephrostomy (Dr. Mcpherson), percutaneous nephrostolithotomy ultrasound, placement of 10 J nephrostomy tube left Anesthesia: MARK Surgeon: Alan Mcpherson Estimated Blood Loss (ml): 50 Pathology: other (Stone) Condition: stable Disposition: PACU Indications for Procedure: Patient is 72. She has a 2 cm left renal pelvic stone causing obstruction and pain. She comes for percutaneous nephrostolithotomy left Description of Procedure: Patient brought to the operating suite. She is given a general anesthetic on the transport gurney. Cystoscopy Foroblique lens and 21-[place] sheath identifies a normal urethra. The left ureteral orifice is intubated and the occluding balloon catheter is passed up into the proximal ureter. It is secured to a 16-[place] Snyder The patient's placed in a prone position. I then performed percutaneous access to a middle pole calyx. I will dictate that separately. Once access was achieved I then dilate the tract to 30-[place]. Introduced the rigid scope into the collecting system. The stone was seen in the left renal pelvis and with ultrasound it is broken into smaller pieces and removed from the left kidney. I then pass the flexible nephroscope through the kidney see no remaining stone. I passed the flexible ureteroscope down the ureter there was a hang-up of the ureteral catheter upon its advancement. No stones were seen. I then place a 10 J nephrostomy the coils in the left renal pelvis. It is secured to the skin. The patient is awakened and returned recovery room good condition. Blood loss is approximately 50 mL.
--- NOTE | 2023-05-09 09:01 | P.PCN ---
Date of Procedure: 05/09/23 Preoperative Diagnosis: Left renal stone large Postoperative Diagnosis: Same Procedure(s) Performed: Percutaneous nephrostomy access left Anesthesia: MARK Surgeon: Alan Mcpherson Indications for Procedure: The patient has a 2 cm left renal pelvic stone. She needs percutaneous access for a percutaneous nephrostolithotomy on the left side Description of Procedure: The patient has previously been anesthetized. She hasn't occluding balloon catheter in the left proximal ureter. She's on the operating table in a prone position with a sterile prep and drape. I filled the collecting system with air. A left middle pole calyx posteriorly is identified. The Chiba needle is then passed into the middle pole calyx. Through the Chiba needle is then passed a cope mandrel wire that passes down the proximal ureter. Over the wire I then pass a 3-Tongan dilating catheter into the proximal ureter. The inner sheath is removed. I then pass an [address] down the ureter. I advanced the 3-Tongan sheath down the ureter. I removed the 035 wire and pass a 038 Super Stiff wire. I then pass the 8/10 ureteral catheters over the wire. The inner c atheters removed and through the 10-Tongan catheter a second safety wires passed down the ureter. I removed the 10-Tongan catheter and pass the 30-Tongan dilating balloon into the collecting system and dilate the tract. Over the balloon I then pass the 30-Tongan sheath into the collecting system.
[2023-05-09 09:46] VITALS: RESP 16
--- NOTE | 2023-05-09 09:46 | FL ---
EXAMINATION TYPE: FL Perc Nephrostomy New Access DATE OF EXAM: 05/09/2023 COMPARISON: NONE HISTORY: Fluoroscopy TECHNIQUE: Fluoroscopy. FINDINGS: Fluoroscopic guidance was provided to the physician performing the procedure. Total dose a huy product (DAP) in uGy*m?, mGy*cm? (or similar): 16.113. IMPRESSION: As Above.
[2023-05-09] MEDS: HYDROmorphone 0.5 MG/0.5 ML SYRINGE IVP PRN ×3 (10:24→11:21)
[2023-05-09] MEDS ORDERED: HYDROmorphone PCA 10 MG/50 ML BAG IV PRN (14:00)
[2023-05-09] MEDS: LACTATED RINGERS 1,000 ML IV SCH ×2 (14:02→16:22)
--- NOTE | 2023-05-09 15:12 | XR ---
EXAMINATION TYPE: XR KUB portable DATE OF EXAM: 05/09/2023 HISTORY: Pain Comparison: None.Single KUB is submitted for interpretation. Findings: Right renal calculi: Calculus measuring 5 mm upper pole right kidney is difficult to exclude. Right ureteral calculi: None Visualized. Left renal calculi: Calculus in the region of the renal pelvis measures 1.5 x 0.8 cm. Left ureteral calculi: None Visualized. Pelvic calcifications: Phleboliths noted within the pelvis. Bowel gas pattern is unremarkable. No free air. No mass effects. IMPRESSION: 1. As above
[2023-05-09] MEDS: carvediloL 3.125 MG TAB PO SCH (16:25)
[2023-05-09] MEDS: DEXTROSE 5%-0.45% NACL 1,000 ML IV SCH (16:26)
[2023-05-09] MEDS: amLODIPine 5 MG TAB PO SCH (20:22)
[2023-05-09] MEDS: levETIRAcetam 500 MG TAB PO SCH (20:22)
[2023-05-09] MEDS ORDERED: traZODone HCL 100 MG TAB PO SCH (21:00)
[2023-05-10] MEDS: DEXTROSE 5%-0.45% NACL 1,000 ML IV SCH ×2 (02:19→03:00)
[2023-05-10] MEDS ORDERED: LEVOTHYROXINE 88 MCG TAB PO SCH (06:30)
[2023-05-10] MEDS: amLODIPine 5 MG TAB PO SCH (08:11)
[2023-05-10] MEDS: carvediloL 3.125 MG TAB PO SCH (08:11)
[2023-05-10] MEDS: levETIRAcetam 500 MG TAB PO SCH (08:11)
[2023-05-10] MEDS ORDERED: PANTOPRAZOLE 40 MG TABLET PO SCH (09:00)
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
[2023-05-10 12:28] LABS: African American GFR (CKD) 22 (>60 ml/min/1.73 sqM); Anion Gap 9 mmol/L; Blood Urea Nitrogen 31 mg/dL (7-17); Calcium 8.1 mg/dL (8.4-10.2); Carbon Dioxide 20 mmol/L (22-30); Chloride 108 mmol/L (98-107); Glucose 97 mg/dL (74-99); Magnesium 1.6 mg/dL (1.6-2.3); Non-African American GFR(CKD) 19 (>60 ml/min/1.73 sqM); Potassium 3.4 mmol/L (3.5-5.1); Sodium 137 mmol/L (137-145)
[2023-05-10 13:01] VITALS: BP 113/68; PULSE 86; TEMP 99.5
[2023-05-10] MEDS ORDERED: POTASSIUM CHLORIDE ER 20 MEQ TAB.ER PO STA (13:59)
[2023-05-10] MEDS ORDERED: MAGNESIUM OXIDE 400 MG TAB PO STA (14:01)
== END 2023-05-10 15:15 | disposition home or self-care (01) ==
LOC: OR 05:48 → 5NMEDONC 12:46 → OR 05-10 15:15
PROVIDERS: ATTEND Urology
DX: N20.0 Calculus of kidney (principal); G40.909 Epilepsy, unspecified, not intractable, without status epilepticus; I13.0 Hypertensive heart and chronic kidney disease with heart failure and stage 1 through stage 4 chronic kidney disease, or unspecified chronic kidney disease; N18.32 Chronic kidney disease, stage 3b; M19.90 Unspecified osteoarthritis, unspecified site; M79.7 Fibromyalgia; Z79.01 Long term (current) use of anticoagulants; Z79.890 Hormone replacement therapy; Z86.711 Personal history of pulmonary embolism; Z86.718 Personal history of other venous thrombosis and embolism; Z86.73 Personal history of transient ischemic attack (TIA), and cerebral infarction without residual deficits; Z88.1 Allergy status to other antibiotic agents; Z88.2 Allergy status to sulfonamides
CPT/HCPCS: 50080; 80048; 83735; 82365; 50432; 74018; C1769 ×5; C2628; C1729 ×2; C1894; J2250; J0330; J1100; J2710; J2405; J2001; J3010; J1580; J2704; J1170 ×2; Q9967

== ENCOUNTER → 2023-10-10 | Outpatient (CLI) | payer MEDICARE ==
--- NOTE | 2023-10-10 15:52 | BD ---
EXAMINATION TYPE: Axial Bone Density DATE OF EXAM: 10/10/2023 CLINICAL HISTORY: 72 years old Female. ICD-10 CODE: M81.0 age related osteoporosis Height: 4 ft 11 1/2 in Weight: 168 FRAX RISK QUESTIONS: Alcohol (3 or more units per day): no Family History (Parent hip fracture): no Glucocorticoids (More than 3mos): no (Ex: prednisone, prednisolone, methylprednisolone, dexamethasone, and hydrocortisone). History of Fracture in Adulthood: yes Secondary Osteoporosis: 1. Type 1 Diabetes: no 2. Hyperthyroidism: no 3. Menopause before 45: yes 4. Malnutrition: chrones 5. Chronic liver disease: no Rheumatoid Arthritis: no Current Tobacco Use: no RISK FACTORS HISTORY OF: History of Wrist Fracture: rt wrist When: 2020 MEDICATIONS: Thyroid Medications: yes Which medication: synthroid How Long: in her 30's Osteoporosis Medications: none EXAM MEASUREMENTS: Bone mineral densitometry was performed using the [employer] System. Bone mineral density as measured about the Lumbar spine is: ----- L1-L4(G/cm2): 1.223 T Score Values are as follows: ----- L1: -0.4 ----- L2: 0.3 ----- L3: 0.9 ----- L4: 0.3 ----- L1-L4: 0.4 Z Score Values are as follows: ----- L1: 0.9 ----- L2: 1.6 ----- L3: 2.2 ----- L4: 1.7 ----- L1-L4: 1.7 Bone mineral density has: increased 0.5 % since study of: 2021 Bone mineral density about the R hip (g/cm2): 0.755 Bone mineral density about the L hip (g/cm2): 0.780 T Score values are as follows: -----R Neck: -2.0 -----L Neck: -1.9 -----R Total: -1.8 -----L Total: -1.7 Z Score values are as follows: -----R Neck: -0.4 -----L Neck: -0.2 -----R Total: -0.4 -----L Total: -0.3 Bone mineral density has: decreased -6.4 % since study of: 2021 FRAX%s: The graph provided illustrates a 18.9 % chance for a major osteoporotic fx and a 4.2 % chance for the hips probability for fx in 10 years time. IMPRESSION: Osteopenia (T Score between -2.5 and -1). There is slightly increased risk of fracture and the patient may be considered for treatment. Re-Screen 2-5 years. NOTE: T-SCORE=SD OF THE YOUNG ADULT MEAN.
--- NOTE | 2023-10-10 19:24 | MM ---
Reason for Exam: Screening (asymptomatic). Last screening mammogram was performed 12 month(s) ago. Patient History: Menarche at age 12. First Full-Term at age 18. Left ovary removed at age 39. Right ovary removed at age 39. Hysterectomy at age 39. Postmenopausal. Patient used Progesterone for 10 years. Maternal cousin had breast cancer, age 50. Maternal aunt had breast cancer. Sister had breast cancer, age 68. Risk Values: Annemarie 5 year model risk: 3.3%. NCI Lifetime model risk: 7.9%. Prior Study Comparison: 10/06/2020 Bilateral Screening Mammogram, [facility]. 10/14/2021 Bilateral MG 3D screening mammo w/cad, [facility]. 10/16/2022 Bilateral MG 3D screening mammo w/cad, [facility]. Tissue Density: There are scattered areas of fibroglandular density. Findings: Analyzed By CAD. Bilateral asymmetric densities are unchanged. There is no suspicious group of microcalcifications or new suspicious mass in either breast. Overall Assessment: Benign, BI-RAD 2 Management: Screening Mammogram of both breasts in 1 year. See note below in regards to patient's increased 5 year Annemarie score. Patient should continue monthly self-breast exams. A clinical breast exam by your physician is recommended on an annual basis. This exam should not preclude additional follow-up of suspicious palpable abnormalities. Note on Annemarie scores and lifetime risk: 1. A Annemarie score greater than 3% is considered moderate risk. If this is the case, consider specialist referral to assess eligibility for a risk reducing agent. 2. If overall lifetime risk for the development of breast cancer is 20% or higher, the patient may qualify for future screening with alternating mammogram and breast MRI. Electronically signed and approved by: Halie Bass M.D. Radiologist
== END | disposition home or self-care (01) ==
LOC: RADMAMWWP 06:44
PROVIDERS: ATTEND Internal Medicine
DX: Z12.31 Encounter for screening mammogram for malignant neoplasm of breast (principal); M85.89 Other specified disorders of bone density and structure, multiple sites; Z78.0 Asymptomatic menopausal state; Z80.3 Family history of malignant neoplasm of breast
CPT/HCPCS: 77063; 77067; 77080

== ENCOUNTER 2024-03-16 01:54 | Inpatient (IN) | payer MEDICARE ==
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
[2024-03-16 03:02] LABS: Basophils # (A) 0.1 k/uL (0-0.2); Basophils % (A) 1 %; Eosinophils # (A) 0.2 k/uL (0-0.7); Eosinophils % (A) 3 %; HCT 40.6 % (34.0-46.0); HGB 12.1 gm/dL (11.4-16.0); Hypochromasia Marked; Lymphocytes % (A) 37 %; MCH 26.1 pg (25.0-35.0); MCHC 29.9 g/dL (31.0-37.0); MCV 87.3 fL (80.0-100.0); Monocytes # (A) 0.4 k/uL (0-1.0); Monocytes % (A) 5 %; Neutrophils # (A) 4.3 k/uL (1.3-7.7); Neutrophils % (A) 52 %; Platelet Count 257 k/uL (150-450); RBC 4.65 m/uL (3.80-5.40); RDW 15.9 % (11.5-15.5); WBC 8.2 k/uL (3.8-10.6)
[2024-03-16 03:12] LABS: ALT 13 U/L (4-34); AST 23 U/L (14-36); African American GFR (CKD) 32 (>60 ml/min/1.73 sqM); Albumin 4.3 g/dL (3.5-5.0); Alkaline Phosphatase 64 U/L (38-126); Anion Gap 11 mmol/L; Blood Urea Nitrogen 42 mg/dL (7-17); Calcium 8.9 mg/dL (8.4-10.2); Carbon Dioxide 13 mmol/L (22-30); Chloride 118 mmol/L (98-107); Glucose 94 mg/dL (74-99); Magnesium 1.7 mg/dL (1.6-2.3); Non-African American GFR(CKD) 28 (>60 ml/min/1.73 sqM); Potassium 3.7 mmol/L (3.5-5.1); Sodium 142 mmol/L (137-145); Total Bilirubin 0.6 mg/dL (0.2-1.3); Total Protein 7.1 g/dL (6.3-8.2)
[2024-03-16 03:18] LABS: INR 0.9 (<1.2); Partial Thromboplastin Time 24.5 sec (22.0-30.0); Prothrombin Time 10.3 sec (10.0-12.5)
[2024-03-16] MEDS: MORPHINE SULFATE 4 MG/ML SYRINGE IV STA (03:27)
--- NOTE | 2024-03-16 03:31 | XR ---
EXAM: XR Chest, 2 Views CLINICAL HISTORY: ITS.REASON XR Reason: Chest Pain TECHNIQUE: Frontal and lateral views of the chest. COMPARISON: No relevant prior studies available. FINDINGS: Lungs: No consolidation or mass. Pleural space: No effusion. Heart: No cardiomegaly. Bones/joints: No acute findings. Dextroscoliosis IMPRESSION: No acute cardiopulmonary process.
[2024-03-16] MEDS ORDERED: NALOXONE 0.4 MG/ML 1 ML VIAL IV PRN (07:10)
[2024-03-16] MEDS ORDERED: ACETAMINOPHEN TAB 325 MG TAB PO PRN (07:10)
[2024-03-16] MEDS ORDERED: CHOLESTYRAMINE (WITH SUGAR) 4 GM PACKET PO PRN (07:12)
[2024-03-16] MEDS ORDERED: traMADol 50 MG TAB PO PRN (07:12)
[2024-03-16] MEDS ORDERED: ERGOCALCIFEROL 1,250 MCG (50,000 IU) CAPSULE PO SCH (07:15)
[2024-03-16] MEDS ORDERED: HEPARIN SODIUM 1,000 UN/ML (10ML VL) IV PRN (07:20)
[2024-03-16] MEDS: MORPHINE SULFATE 4 MG/ML SYRINGE IV PRN (08:12)
[2024-03-16] MEDS: HEPARIN SODIUM 1,000 UN/ML (10ML VL) IV ONE (08:13)
[2024-03-16] MEDS: HEPARIN SOD,PORK IN 0.45% NACL 25,000 UNIT in 0.45% NACL 1 250ML.BAG IV SCH (08:14)
[2024-03-16 08:23] LABS: Anisocytosis Slight; Basophils % (A) 0 %; Eosinophils # (A) 0.2 k/uL (0-0.7); Eosinophils % (A) 3 %; HCT 38.1 % (34.0-46.0); HGB 11.9 gm/dL (11.4-16.0); Hypochromasia Marked; Lymphocytes % (A) 41 %; MCH 26.9 pg (25.0-35.0); MCHC 31.2 g/dL (31.0-37.0); MCV 86.1 fL (80.0-100.0); Monocytes # (A) 0.3 k/uL (0-1.0); Monocytes % (A) 4 %; Neutrophils # (A) 3.7 k/uL (1.3-7.7); Neutrophils % (A) 50 %; Platelet Count 227 k/uL (150-450); Poikilocytosis Slight; RBC 4.42 m/uL (3.80-5.40); RDW 16.1 % (11.5-15.5); WBC 7.4 k/uL (3.8-10.6)
[2024-03-16] MEDS: SODIUM CHLORIDE 0.9% 1,000 ML IV SCH (08:33)
[2024-03-16 08:48] LABS: INR 0.9 (<1.2); Partial Thromboplastin Time 23.8 sec (22.0-30.0); Prothrombin Time 10.2 sec (10.0-12.5)
[2024-03-16] MEDS: levETIRAcetam 500 MG TAB PO SCH (09:07)
[2024-03-16] MEDS: ASPIRIN 81 MG PO SCH (09:07)
[2024-03-16] MEDS: MULTIVITAMINS, THERA 1 EACH TAB PO SCH (09:07)
[2024-03-16] MEDS: PANTOPRAZOLE 40 MG TABLET PO SCH (09:07)
[2024-03-16] MEDS: FOLIC ACID 1 MG TAB PO SCH (09:07)
[2024-03-16] MEDS: amLODIPine 5 MG TAB PO SCH (09:07)
[2024-03-16] MEDS: FAMOTIDINE 20 MG TAB PO SCH (09:09)
[2024-03-16] MEDS: carvediloL 3.125 MG TAB PO SCH (09:11)
[2024-03-16] MEDS: LEVOTHYROXINE 88 MCG TAB PO SCH (09:11)
[2024-03-16 11:44] LABS: Appearance,Urine Clear (Clear); Bacteria,Urine Moderate /hpf; Bilirubin,Urine Negative (Negative); Blood,Urine Negative (Negative); Color,Urine Colorless; Glucose,Urine (UA) Negative (Negative); Ketones,Urine Negative (Negative); Leukocyte Esterase,Urine Large (Negative); Mucus,Urine Rare /hpf; Nitrite,Urine Negative (Negative); Protein,Urine 1+ (Negative); RBC,Urine 2 /hpf (0-5); Specific Gravity,Urine 1.012 (1.001-1.035); Squamous Epithelial Cell,Urine 1 /hpf (0-4); Urobilinogen,Urine <2.0 mg/dL (<2.0); WBC,Urine 14 /hpf (0-5)
--- NOTE | 2024-03-16 12:21 | US ---
EXAMINATION TYPE: US venous doppler duplex LE DATE OF EXAM: 03/16/2024 11:57 AM COMPARISON: US 2012 & 2016 CLINICAL INDICATION: Female, 73 years old with history of swelling, elevated d-dimer; History of DVT, patient on blood thinners TECHNIQUE: The lower extremity deep venous system is examined utilizing real time linear array sonog wilberto with graded compression, color doppler sonography, and spectral doppler. SIDE PERFORMED: Bilateral FINDINGS: VESSELS IMAGED: Common Femoral Vein Deep Femoral Vein Greater Saphenous Vein * Femoral Vein Popliteal Vein Small Saphenous Vein * Proximal Calf Veins (* superficial vessels) Right Leg: Partial vein compression from EIV through distal femoral vein - ? chronic Left Leg: Appears negative for DVT Grayscale, color doppler, spectral doppler imaging performed of the deep veins of the lower extremiti es. Deep venous system of the left lower extremity from the common femoral vein to the proximal calf vein s is patent and compressible augmentable flow. There is incomplete compression of the right external iliac vein through the distal femoral vein radha cating probable chronic DVT. IMPRESSION: 1. No evidence of left lower extremity DVT. 2. Suspect chronic DVT from the right external iliac vein to the distal femoral vein [facility], , 03/16/2024 12:18 PM
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
--- NOTE | 2024-03-16 13:43 | NM ---
EXAMINATION TYPE: NM pul perfusion DATE OF EXAM: 03/16/2024 COMPARISON: NONE CLINICAL INDICATION: Female, 73 years old with history of dyspnea; Following administration of 5 mCi Tc 99m MAA. Images obtained post injection. FINDINGS: There are multiple segmental perfusion defects. IMPRESSION: High probability for pulmonary embolism. [facility] Saad Katz, Workstation: [facility], 03/16/2024 1:41 PM
[2024-03-16] MEDS: ONDANSETRON 4 MG/2 ML VIAL IVP PRN (14:11)
[2024-03-16] MEDS ORDERED: ONDANSETRON 4 MG/2 ML VIAL IVP PRN (14:19)
[2024-03-16] MEDS: DEXTROSE 5% IN WATER 1,000 ML with SODIUM BICARB (1 MEQ/ML) 150 ML IV SCH (15:42)
[2024-03-16] MEDS ORDERED: MAGNESIUM OXIDE 400 MG TAB PO SCH (21:00)
[2024-03-16] MEDS ORDERED: traZODone HCL 100 MG TAB PO PRN (21:00)
[2024-03-16] MEDS ORDERED: traZODone HCL 100 MG TAB PO SCH (21:00)
[2024-03-16] MEDS: levETIRAcetam 250 MG TAB PO SCH (22:28)
[2024-03-17] MEDS: HEPARIN SOD,PORK IN 0.45% NACL 25,000 UNIT in 0.45% NACL 1 250ML.BAG IV SCH (02:40)
[2024-03-17] MEDS: FAMOTIDINE 20 MG TAB PO SCH (08:28)
[2024-03-17 08:59] LABS: Basophils % (A) 0 %; Eosinophils # (A) 0.1 k/uL (0-0.7); Eosinophils % (A) 2 %; HCT 37.6 % (34.0-46.0); HGB 11.5 gm/dL (11.4-16.0); Hypochromasia Marked; Lymphocytes % (A) 23 %; MCH 26.7 pg (25.0-35.0); MCHC 30.7 g/dL (31.0-37.0); MCV 86.9 fL (80.0-100.0); Monocytes # (A) 0.4 k/uL (0-1.0); Monocytes % (A) 4 %; Neutrophils % (A) 70 %; Platelet Count 235 k/uL (150-450); RBC 4.32 m/uL (3.80-5.40); RDW 15.9 % (11.5-15.5); WBC 8.6 k/uL (3.8-10.6)
[2024-03-17 09:25] LABS: Prothrombin Time 10.7 sec (10.0-12.5)
[2024-03-17 09:40] LABS: Partial Thromboplastin Time 117.4 sec (22.0-30.0)
[2024-03-17 10:16] LABS: ALT 12 U/L (4-34); AST 23 U/L (14-36); African American GFR (CKD) 35 (>60 ml/min/1.73 sqM); Albumin 3.6 g/dL (3.5-5.0); Alkaline Phosphatase 80 U/L (38-126); Anion Gap 10 mmol/L; Blood Urea Nitrogen 31 mg/dL (7-17); Calcium 8.5 mg/dL (8.4-10.2); Carbon Dioxide 22 mmol/L (22-30); Chloride 110 mmol/L (98-107); Glucose 116 mg/dL (74-99); Non-African American GFR(CKD) 30 (>60 ml/min/1.73 sqM); Potassium 3.2 mmol/L (3.5-5.1); Sodium 142 mmol/L (137-145); Total Bilirubin 0.6 mg/dL (0.2-1.3); Total Protein 6.2 g/dL (6.3-8.2)
[2024-03-17] MEDS ORDERED: Potassium Replacement Protocol 1 EACH MISC MISCELLANE PRN (10:34)
[2024-03-17] MEDS: POTASSIUM CHLORIDE ER 20 MEQ TAB.ER PO STA (10:50)
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
--- NOTE | 2024-03-17 11:41 | P.PN ---
Subjective Progress Note Date: 03/17/24 This is a 73-year-old female patient, came to the emergency department after experiencing right-sided chest wall pain. The pain started this morning and it woke her up from sleep. The pain is right under her breast,/on the right side, nonpleuritic in nature, not related to breathing or movement. She did do some strenuous activity over the past 1 week. No trauma to the chest. No hemoptysis. She is not a previous history of DVT and pulmonary embolism more than 20 years ago. She remains on anticoagulation with Eliquis. 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 Her D-dimer was elevated at 3.03. BUN is 42 with a creatinine of 1.7 and a serum bicarb to 13 and the patient continues to have chronic diarrhea related to inflammatory bowel disease. The white cell count 7.4 with a hemoglobin 11.9. Troponins are negative and the patient is currently on room air oxygen. The patient is being seen by cardiology. The pulmonary consultation was requested due to concern of recurrent event. The patient is seen today March 17, 2024 in follow-up in the emergency department. She is currently sitting up on a stretcher. Awake and alert in no acute distress. Maintaining good O2 saturations in the 90s on room air. Dopplers of the lower extremity revealed no DVT on the left. Suspect chronic DVT in the right external iliac vein to the distal femoral vein. VQ scan revealed high probability for pulmonary embolism. She does admit to having missed at least 2 doses of her Eliquis prior to her arrival. She is currently on a heparin drip. White count 8.6. Hemoglobin 11.5. Sodium 142. Potassium 3.2. Bicarb 22. BUN 31. Creatinine 1.67. Glucose 116. She has been initiated on D5W with 3 A of bicarb at 75 mL/h. Objective - Vital Signs Vital signs: Vital Signs Temp 98 F 03/17/24 08:40 Pulse 87 03/17/24 08:40 Resp 16 03/17/24 08:40 BP 121/92 03/17/24 08:40 Pulse Ox 96 03/17/24 08:40 FiO2 Intake & Output 03/16/24 03/17/24 03/17/24 18:59 06:59 18:59 Intake Total 66.313 55.134 97.854 Balance 66.313 55.134 97.854 Intake: Intake, IV Titration 66.313 55.134 97.854 Amount Heparin Sod,Pork in 0.45% 66.313 55.134 NaCl 25,000 unit In 0.45 % NaCl 1 250ml.bag @ 12 UNITS/KG/HR 9.253 mls/hr IV .Q24H YUNIER Rx#: [id number] Heparin Sod,Pork in 0.45% 97.854 NaCl 25,000 unit In 0.45 % NaCl 1 250ml.bag @ 18 UNITS/KG/HR 13.88 mls/hr IV .Q18H1M YUNIER Rx#: [id number] - Exam GENERAL EXAM: Alert, pleasant 73-year-old female, on room air, comfortable in no apparent distress. HEAD: Normocephalic. EYES: Normal reaction of pupils, equal size. NOSE: Clear with pink turbinates. THROAT: No erythema or exudates. NECK: No masses, no JVD. CHEST: No chest wall deformity. LUNGS: Equal air entry with no crackles, wheeze, rhonchi or dullness. CVS: S1 and S2 normal with no audible murmur, regular rhythm. ABDOMEN: No hepatosplenomegaly, normal bowel sounds, no guarding or rigidity. SPINE: No scoliosis or deformity SKIN: No rashes CENTRAL NERVOUS SYSTEM: No focal deficits, tone is normal in all 4 extremities. EXTREMITIES: There is no peripheral edema. No clubbing, no cyanosis. Peripheral pulses are intact. - Labs CBC & Chem 7: 03/17/24 08:13 03/17/24 08:13 Labs: Abnormal Lab Results - Last 24 Hours (Table) 03/16/24 03/16/24 03/16/24 Range/Units 11:15 14:04 21:18 MCHC (31.0-37.0) g/dL RDW (11.5-15.5) % APTT 90.0 H 62.8 H (22.0-30.0) sec Potassium (3.5-5.1) mmol/L Chloride (98-107) mmol/L BUN (7-17) mg/dL Creatinine (0.52-1.04) mg/dL Glucose (74-99) mg/dL Total Protein (6.3-8.2) g/dL Urine Protein 1+ H (Negative) Ur Leukocyte Esterase Large H (Negative) Urine WBC 14 H (0-5) /hpf Urine Bacteria Moderate H (None) /hpf Urine Mucus Rare H (None) /hpf 03/17/24 03/17/24 03/17/24 Range/Units 08:13 08:13 08:13 MCHC 30.7 L (31.0-37.0) g/dL RDW 15.9 H (11.5-15.5) % APTT 117.4 H* (22.0-30.0) sec Potassium 3.2 L (3.5-5.1) mmol/L Chloride 110 H (98-107) mmol/L BUN 31 H (7-17) mg/dL Creatinine 1.67 H (0.52-1.04) mg/dL Glucose 116 H (74-99) mg/dL Total Protein 6.2 L (6.3-8.2) g/dL Urine Protein (Negative) Ur Leukocyte Esterase (Negative) Urine WBC (0-5) /hpf Urine Bacteria (None) /hpf Urine Mucus (None) /hpf Assessment and Plan Assessment: Acute chest pain, related to high probability of pulmonary embolism. The patient admits to having missed at least 2 doses of Eliquis prior to arrival. The patient is currently on room air oxygen. Previous history of DVT and pulmonary embolism more than 20 years ago, and the patient is currently on anticoagulation with Eliquis. Doppler negative for DVT on the left. 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 Current BMI 34.3 Chronic stage IIIb kidney disease History of chronic disease requiring multiple surgeries and colectomy with subsequent reversal. She continues to have chronic diarrhea Non-anion gap metabolic acidosis, likely secondary to chronic diarrhea History of EXERCISER bleed attributed to warfarin many years back History of seizure secondary to above, currently inactive and stable Hypertension Osteoarthritis Hypothyroidism Fibromyalgia Degenerative arthritis Plan: The patient was seen and evaluated Imaging, labs and medications reviewed Currently on a heparin drip Echocardiogram pending Educated regarding the importance of not missing any doses of her anticoagulation Remains stable and on room air We will continue to follow I have personally seen and examined the patient, performed the documentation and the assessment and plan as written. Number of minutes spent on the visit: 10.
--- NOTE | 2024-03-17 12:59 | CA ---
Transthoracic Echo Report Name: Thuy Bruce Age: 73 Gender: F : 1950 Exam Date: 03/17/2024 10:00 Exam Location: [facility] Ht (in): 59 Wt (lb): 170 Ordering Physician: Justin Gay MD Attending/Referring Phys: [employer] Jessica Estrella RDCS Procedure CPT: Indications: SHORTNESS OF BREATH Cardiac Hx: Technical Quality: Fair Contrast 1: Total Dose (mL): Contrast 2: Total Dose (mL): MEASUREMENTS (Male / Female) Normal Values 2D ECHO LV Diastolic Diameter PLAX 3.0 cm 4.2 - 5.9 / 3.9 - 5.3 cm LV Systolic Diameter PLAX 2.3 cm IVS Diastolic Thickness 1.6 cm 0.6 - 1.0 / 0.6 - 0.9 cm LVPW Diastolic Thickness 1.5 cm 0.6 - 1.0 / 0.6 - 0.9 cm LV Relative Wall Thickness 1.0 RV Internal Dim ED PLAX 1.6 cm LA Systolic Diameter LX 2.9 cm 3.0 - 4.0 / 2.7 - 3.8 cm LV Diastolic Volume MOD BP 54.5 cm??? 67 - 155 / 56 - 104 cm??? LV Systolic Volume MOD BP 19.0 cm??? 22 - 58 / 19 - 49 cm??? LV Ejection Fraction MOD BP 65.1 % >= 55 % LV Cardiac Index MOD BP 1626.8 cm???/min???m??? LV Diastolic Volume MOD 4C 59.6 cm??? LV Systolic Volume MOD 4C 19.3 cm??? LV Ejection Fraction MOD 4C 67.6 % LV Cardiac Index MOD 4C 1850.2 cm???/min???m??? LV Diastolic Length 4C 7.0 cm LV Systolic Length 4C 5.5 cm LV Diastolic Volume MOD 2C 47.7 cm??? LV Systolic Volume MOD 2C 18.2 cm??? LV Ejection Fraction MOD 2C 61.7 % LV Cardiac Index MOD 2C 1352.2 cm???/min???m??? LV Diastolic Length 2C 6.7 cm LV Systolic Length 2C 5.7 cm LA Volume 42.1 cm??? 18 - 58 / 22 - 52 cm??? LA Volume Index 23.0 cm???/m??? 16 - 28 cm???/m??? M-MODE Aortic Root Diameter MM 3.4 cm LA Systolic Diameter MM 2.5 cm LA Ao Ratio MM 0.7 AV Cusp Separation MM 2.0 cm DOPPLER AI Peak Velocity 409.3 cm/s AI Peak Gradient 67.0 mmHg AI Pressure Half Time 661.9 ms MV Area PHT 2.7 cm??? Mitral E Point Velocity 67.5 cm/s Mitral A Point Velocity 104.7 cm/s Mitral E to A Ratio 0.6 MV Deceleration Time 284.3 ms TR Peak Velocity 225.6 cm/s TR Peak Gradient 20.4 mmHg FINDINGS Left Ventricle Left ventricular ejection fraction is estimated at 55-60 %. Moderately increased septal wall thickness. Moderately increased posterior wall thickness. Left ventricular cavity size normal. Normal left ventricular systolic function with no obvious regional wall motion abnormalities. Right Ventricle Normal right ventricular size and function. Right ventricular systolic pressure within normal limits. Right Atrium Normal right atrial size. Left Atrium Mild left atrial dilatation. Mitral Valve Structurally normal mitral valve. Trace mitral regurgitation. No mitral stenosis. Aortic Valve Trileaflet aortic valve. Mild aortic regurgitation. No aortic stenosis. Tricuspid Valve Structurally normal tricuspid valve. No tricuspid stenosis. Mild tricuspid regurgitation. Pulmonic Valve Structurally normal pulmonic valve. Trace pulmonic regurgitation. No pulmonic stenosis. Pericardium No pericardial or pleural effusion. Aorta Normal size aortic root and proximal ascending aorta. CONCLUSIONS Normal LV size and systolic function. Mild mitral tricuspid and aortic insufficiency without pulmonary hypertension. No pericardial effusion Previewed by: Dr. Elizabeth Hui MD (Electronically Signed) Final Date: 17 March 2024 12:58
[2024-03-17] MEDS: DOCUSATE 100 MG CAP PO PRN (20:42)
[2024-03-18 06:57] LABS: Basophils % (A) 0 %; Eosinophils # (A) 0.1 k/uL (0-0.7); Eosinophils % (A) 2 %; HCT 33.9 % (34.0-46.0); HGB 10.2 gm/dL (11.4-16.0); Hypochromasia Marked; Lymphocytes # (A) 2.5 k/uL (1.0-4.8); Lymphocytes % (A) 42 %; MCH 26.1 pg (25.0-35.0); MCHC 30.1 g/dL (31.0-37.0); MCV 86.8 fL (80.0-100.0); Mean Platelet Volume 6.8; Monocytes # (A) 0.3 k/uL (0-1.0); Monocytes % (A) 5 %; Neutrophils # (A) 2.9 k/uL (1.3-7.7); Neutrophils % (A) 48 %; Platelet Count 184 k/uL (150-450); RDW 15.9 % (11.5-15.5)
[2024-03-18 08:18] LABS: African American GFR (CKD) 32 (>60 ml/min/1.73 sqM); Anion Gap 6 mmol/L; Blood Urea Nitrogen 29 mg/dL (7-17); Calcium 8.4 mg/dL (8.4-10.2); Carbon Dioxide 27 mmol/L (22-30); Chloride 105 mmol/L (98-107); Glucose 100 mg/dL (74-99); Non-African American GFR(CKD) 28 (>60 ml/min/1.73 sqM); Potassium 3.7 mmol/L (3.5-5.1); Sodium 138 mmol/L (137-145)
[2024-03-18] MEDS: DOCUSATE 100 MG CAP PO SCH (08:43)
--- NOTE | 2024-03-18 10:20 | P.PN ---
Subjective Progress Note Date: 03/17/24 History of present illness; patient is 73-year-old lady with past medical history significant PE, DVT, hypertension, hypothyroidism who presented to the ER because of chest pain. Patient stated that she was all right yesterday evening when she suddenly started noticing chest pain that was right-sided loc ated right underneath her breast, was sharp, constant, associated with shortness of breath. There was no aggravating or relieving factor associated with this chest pain. Denied any fever or chills. There was no complaint of orthopnea or PND. Denies any swelling of feet. Patient stated that her chest pain was very similar to her previous episodes of PE. Patient is currently on Eliquis and has been noted to be compliant with it. Because of this chest pain, patient came to the ER Initial lab work done in the ER showed WBC 8.3, hemoglobin 12.1, platelet count 257, D-dimer 3.03, sodium 142, potassium 3.7, BUN 42, creatinine 1.76, glucose 94, magnesium 1.7, troponin 0.012 EKG done in the ER showed heart rate of 70, no ST segment elevation or depression seen, no T-wave inversions seen. Chest x-ray done in the ER showed no acute cardiopulmonary process Patient admitted to internal medicine service 03/17/2024 Patient is lying in the bed. Awake alert and oriented x 3. Currently in the ER. Patient is complaining of chest pain. Denies any worsening shortness of breath. Currently on room air. No leg swelling. No fever no chills. VQ scan showed high probability for PE Lower extremity duplex scan showed no evidence of left lower extremity DVT. Suspect chronic DVT from the right external iliac vein to distal femoral vein. Laboratory data showed sodium 142 potassium 3.2 which is replaced chloride 110 bicarb is 22 BUN 31 and creatinine 1.67 and blood sugar is 116 and albumin 3.2. Patient is being current on heparin drip. Pulmonary and cardiology is on board. Current medications reviewed. PHYSICAL EXAMINATION: GENERAL: The patient is alert and oriented x3, not in any acute distress. Well developed, well nourished. HEENT: Pupils are round and equally reacting to light. EOMI. No scleral icterus. No conjunctival pallor. Normocephalic, atraumatic. No pharyngeal erythema. No thyromegaly. CARDIOVASCULAR: S1 and S2 present. No murmurs, rubs, or gallops. PULMONARY: Chest is clear to auscultation, no wheezing or crackles. ABDOMEN: Soft, nontender, nondistended, normoactive bowel sounds. No palpable organomegaly. MUSCULOSKELETAL: No joint swelling or deformity. EXTREMITIES: No cyanosis, clubbing, or pedal edema. NEUROLOGICAL: Gross neurological examination did not reveal any focal deficits. SKIN: No rashes. Assessment and plan Chest pain likely due to pulm embolism. VQ scan showed hyperacute for PE. 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 Elevated D-dimer Hypertension Hyperlipidemia Hypothyroidism History of seizures History of PE and DVT. Patient is on Eliquis at home. Patient missed doses for the last 2 to 3 days prior to admission. Chronic kidney disease stage III Monitor vital signs Monitor CBC Monitor CMP Continue telemetry monitoring Trend troponin 2D echocardiogram was done. Continue with heparin drip. Current with home medications and follow-up closely. Cardiology and pulmonary is on board. Labs and medication were reviewed.. Dictation was produced using [employer] dictation software. please excuse any grammatical, word or spelling errors. Objective - Vital Signs Vital signs: Vital Signs Temp 98 F 03/17/24 08:40 Pulse 87 03/17/24 08:40 Resp 16 03/17/24 08:40 BP 121/92 03/17/24 08:40 Pulse Ox 96 03/17/24 08:40 FiO2 Intake & Output 03/16/24 03/17/24 03/17/24 18:59 06:59 18:59 Intake Total 66.313 55.134 97.854 Balance 66.313 55.134 97.854 Intake: Intake, IV Titration 66.313 55.134 97.854 Amount Heparin Sod,Pork in 0.45% 66.313 55.134 NaCl 25,000 unit In 0.45 % NaCl 1 250ml.bag @ 12 UNITS/KG/HR 9.253 mls/hr IV .Q24H YUNIER Rx#: [id number] Heparin Sod,Pork in 0.45% 97.854 NaCl 25,000 unit In 0.45 % NaCl 1 250ml.bag @ 18 UNITS/KG/HR 13.88 mls/hr IV .Q18H1M YUNIER Rx#: [id number] - Labs CBC & Chem 7: 03/18/24 06:14 03/18/24 06:14 Labs: Abnormal Lab Results - Last 24 Hours (Table) 03/16/24 03/16/24 03/16/24 Range/Units 11:15 14:04 21:18 MCHC (31.0-37.0) g/dL RDW (11.5-15.5) % APTT 90.0 H 62.8 H (22.0-30.0) sec Potassium (3.5-5.1) mmol/L Chloride (98-107) mmol/L BUN (7-17) mg/dL Creatinine (0.52-1.04) mg/dL Glucose (74-99) mg/dL Total Protein (6.3-8.2) g/dL Urine Protein 1+ H (Negative) Ur Leukocyte Esterase Large H (Negative) Urine WBC 14 H (0-5) /hpf Urine Bacteria Moderate H (None) /hpf Urine Mucus Rare H (None) /hpf 03/17/24 03/17/24 03/17/24 Range/Units 08:13 08:13 08:13 MCHC 30.7 L (31.0-37.0) g/dL RDW 15.9 H (11.5-15.5) % APTT 117.4 H* (22.0-30.0) sec Potassium 3.2 L (3.5-5.1) mmol/L Chloride 110 H (98-107) mmol/L BUN 31 H (7-17) mg/dL Creatinine 1.67 H (0.52-1.04) mg/dL Glucose 116 H (74-99) mg/dL Total Protein 6.2 L (6.3-8.2) g/dL Urine Protein (Negative) Ur Leukocyte Esterase (Negative) Urine WBC (0-5) /hpf Urine Bacteria (None) /hpf Urine Mucus (None) /hpf Assessment and Plan Time with Patient: Greater than 30
--- NOTE | 2024-03-18 14:21 | P.PN ---
Subjective Progress Note Date: 03/18/24 Principal diagnosis: Acute pulmonary embolism This is a 73-year-old female patient, came to the emergency department after experiencing right-sided chest wall pain. The pain started this morning and it woke her up from sleep. The pain is right under her breast,/on the right side, nonpleuritic in nature, not related to breathing or movement. She did do some strenuous activity over the past 1 week. No trauma to the chest. No hemoptysis. She is not a previous history of DVT and pulmonary embolism more than 20 years ago. She remains on anticoagulation with Eliquis. 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 Her D-dimer was elevated at 3.03. BUN is 42 with a creatinine of 1.7 and a serum bicarb to 13 and the patient continues to have chronic diarrhea related to inflammatory bowel disease. The white cell count 7.4 with a hemoglobin 11.9. Troponins are negative and the patient is currently on room air oxygen. The patient is being seen by cardiology. The pulmonary consultation was requested due to concern of recurrent event. The patient is seen today March 17, 2024 in follow-up in the emergency department. She is currently sitting up on a stretcher. Awake and alert in no acute distress. Maintaining good O2 saturations in the 90s on room air. Dopplers of the lower extremity revealed no DVT on the left. Suspect chronic DVT in the right external iliac vein to the distal femoral vein. VQ scan revealed high probability for pulmonary embolism. She does admit to having missed at least 2 doses of her Eliquis prior to her arrival. She is currently on a heparin drip. White count 8.6. Hemoglobin 11.5. Sodium 142. Potassium 3.2. Bicarb 22. BUN 31. Creatinine 1.67. Glucose 116. She has been initiated on D5W with 3 A of bicarb at 75 mL/h. Patient was today on 03/18/2024, does not seem to be in distress, she is comfortable, but she continues to have severe pleuritic chest pain. Mostly on the left side. Patient remains on heparin, and I plan to continue heparin for now since the patient seems to be quite symptomatic. And will likely transition her back to [facility] tomorrow. WBC count is 6 hemoglobin 10.2 PTT is suprath erapeutic 182 electrolytes are normal BUN 29 creatinine 1.79 Objective - Vital Signs Vital signs: Vital Signs Temp 98.2 F 03/18/24 11:40 Pulse 70 03/18/24 08:00 Resp 16 03/18/24 13:09 BP 114/75 03/18/24 11:40 Pulse Ox 97 03/18/24 11:40 FiO2 Intake & Output 03/17/24 03/18/24 03/18/24 18:59 06:59 18:59 Intake Total 170.726 389.52 413.552 Balance 170.726 389.52 413.552 Weight 77.111 kg 78.8 kg Intake: IV 389.52 Dextrose 5% in Water 1, 337.5 000 ml @ 75 mls/hr IV . [id number] YUNIER with Sodium Bicarb (1 Meq/ml) 150 ml Rx#:[id number] Heparin Sod,Pork in 0.45% 52.02 NaCl 25,000 unit In 0.45 % NaCl 1 250ml.bag @ 12 UNITS/KG/HR 9.253 mls/hr IV .Q24H YUNIER Rx#: [id number] Intake, IV Titration 170.726 177.552 Amount Heparin Sod,Pork in 0.45% 170.726 177.552 NaCl 25,000 unit In 0.45 % NaCl 1 250ml.bag @ 18 UNITS/KG/HR 13.88 mls/hr IV .Q18H1M YUNIER Rx#: [id number] Oral 236 Other: # Voids 3 - Exam GENERAL EXAM: 73-year-old in no distress on room air HEAD: Normocephalic. EYES: Normal reaction of pupils, equal size. NOSE: Clear with pink turbinates. THROAT: No erythema or exudates. NECK: No masses, no JVD. CHEST: No chest wall deformity. LUNGS: Equal air entry with no crackles, wheeze, rhonchi or dullness. CVS: S1 and S2 normal with no audible murmur, regular rhythm. ABDOMEN: No hepatosplenomegaly, normal bowel sounds, no guarding or rigidity. SKIN: No rashes CENTRAL NERVOUS SYSTEM: Alert oriented x 3 no focal deficit EXTREMITIES: No clubbing edema or cyanosis - Labs CBC & Chem 7: 03/18/24 06:14 03/18/24 06:14 Labs: Abnormal Lab Results - Last 24 Hours (Table) 03/17/24 03/18/24 03/18/24 Range/Units 16:11 06:14 06:14 Hgb 10.2 L (11.4-16.0) gm/dL Hct 33.9 L (34.0-46.0) % MCHC 30.1 L (31.0-37.0) g/dL RDW 15.9 H (11.5-15.5) % APTT 79.4 H 182.1 H* (22.0-30.0) sec BUN (7-17) mg/dL Creatinine (0.52-1.04) mg/dL Glucose (74-99) mg/dL 03/18/24 Range/Units 06:14 Hgb (11.4-16.0) gm/dL Hct (34.0-46.0) % MCHC (31.0-37.0) g/dL RDW (11.5-15.5) % APTT (22.0-30.0) sec BUN 29 H (7-17) mg/dL Creatinine 1.79 H (0.52-1.04) mg/dL Glucose 100 H (74-99) mg/dL Assessment and Plan Assessment: Impression: Acute chest pain, related to high probability of pulmonary embolism. The patient admits to having missed at least 2 doses of Eliquis prior to arrival. The patient is currently on room air oxygen. Previous history of DVT and pulmonary embolism more than 20 years ago, and the patient is currently on anticoagulation with Eliquis. Doppler negative for DVT on the left. 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 Current BMI 34.3 Chronic stage IIIb kidney disease History of chronic disease requiring multiple surgeries and colectomy with subsequent reversal. She continues to have chronic diarrhea Non-anion gap metabolic acidosis, likely secondary to chronic diarrhea History of [employer] bleed attributed to warfarin many years back History of seizure secondary to above, currently inactive and stable Hypertension Osteoarthritis Hypothyroidism Fibromyalgia Degenerative arthritis Recommendation: Continue present supportive care measures Continue heparin drip, continue to monitor PTT and adjust accordingly Echocardiogram was reviewed there is no evidence of pulmonary hypertension and no evidence of right ventricular strain Transition to Eliquis in the next 24 hours and consider discharge planning in the next 24 hours. Patient to follow-up on outpatient basis Time with Patient: Less than 30
[2024-03-19] MEDS: traMADol 50 MG TAB PO PRN (05:01)
[2024-03-19 06:35] LABS: African American GFR (CKD) 32 (>60 ml/min/1.73 sqM); Anion Gap 2 mmol/L; Blood Urea Nitrogen 27 mg/dL (7-17); Calcium 8.5 mg/dL (8.4-10.2); Carbon Dioxide 27 mmol/L (22-30); Chloride 106 mmol/L (98-107); Glucose 98 mg/dL (74-99); Non-African American GFR(CKD) 28 (>60 ml/min/1.73 sqM); Potassium 4.2 mmol/L (3.5-5.1); Sodium 135 mmol/L (137-145)
--- NOTE | 2024-03-19 09:34 | P.PN ---
Subjective Progress Note Date: 03/18/24 History of present illness; patient is 73-year-old lady with past medical history significant PE, DVT, hypertension, hypothyroidism who presented to the ER because of chest pain. Patient stated that she was all right yesterday evening when she suddenly started noticing chest pain that was right-sided loc ated right underneath her breast, was sharp, constant, associated with shortness of breath. There was no aggravating or relieving factor associated with this chest pain. Denied any fever or chills. There was no complaint of orthopnea or PND. Denies any swelling of feet. Patient stated that her chest pain was very similar to her previous episodes of PE. Patient is currently on Eliquis and has been noted to be compliant with it. Because of this chest pain, patient came to the ER Initial lab work done in the ER showed WBC 8.3, hemoglobin 12.1, platelet count 257, D-dimer 3.03, sodium 142, potassium 3.7, BUN 42, creatinine 1.76, glucose 94, magnesium 1.7, troponin 0.012 EKG done in the ER showed heart rate of 70, no ST segment elevation or depression seen, no T-wave inversions seen. Chest x-ray done in the ER showed no acute cardiopulmonary process Patient admitted to internal medicine service 03/17/2024 Patient is lying in the bed. Awake alert and oriented x 3. Currently in the ER. Patient is complaining of chest pain. Denies any worsening shortness of breath. Currently on room air. No leg swelling. No fever no chills. VQ scan showed high probability for PE Lower extremity duplex scan showed no evidence of left lower extremity DVT. Suspect chronic DVT from the right external iliac vein to distal femoral vein. Laboratory data showed sodium 142 potassium 3.2 which is replaced chloride 110 bicarb is 22 BUN 31 and creatinine 1.67 and blood sugar is 116 and albumin 3.2. Patient is being current on heparin drip. Pulmonary and cardiology is on board. Current medications reviewed. 03/18/2024 Patient is currently lying in the bed. Awake alert and oriented x 3. Still complains of constant left-sided chest pressure/pain. no fever no chills. No cough or sputum production. No nausea vomiting abdominal pain or diarrhea. Patient has been current on IV heparin. Laboratory data showed WBC 6.0 hemoglobin 10.2 and platelets 184 APTT 182 BUN 29 and creatinine 1.79 and blood sugar 100. Pulmonary is on board. Current medications reviewed. PHYSICAL EXAMINATION: GENERAL: The patient is alert and oriented x3, not in any acute distress. Well developed, well nourished. HEENT: Pupils are round and equally reacting to light. EOMI. No scleral icterus. No conjunctival pallor. Normocephalic, atraumatic. No pharyngeal erythema. No thyromegaly. CARDIOVASCULAR: S1 and S2 present. No murmurs, rubs, or gallops. PULMONARY: Chest is clear to auscultation, no wheezing or crackles. ABDOMEN: Soft, nontender, nondistended, normoactive bowel sounds. No palpable organomegaly. MUSCULOSKELETAL: No joint swelling or deformity. EXTREMITIES: No cyanosis, clubbing, or pedal edema. NEUROLOGICAL: Gross neurological examination did not reveal any focal deficits. SKIN: No rashes. Assessment and plan Chest pain likely due to pulm embolism. VQ scan showed hyperacute for PE. 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 Elevated D-dimer Hypertension Hyperlipidemia Hypothyroidism History of seizures History of PE and DVT. Patient is on Eliquis at home. Patient missed doses for the last 2 to 3 days prior to admission. Chronic kidney disease stage III Monitor vital signs Monitor CBC Monitor CMP Continue telemetry monitoring Trend troponin 2D echocardiogram was done. Continue with heparin drip. Possible change to p.o. anticoagulation tomorrow. Bicarb drip has been discontinued. Current with home medications and follow-up closely. Cardiology and pulmonary is on board. Labs and medication were reviewed.. Dictation was produced using [employer] dictation software. please excuse any grammatical, word or spelling errors. Objective - Vital Signs Vital signs: Vital Signs Temp 98.5 F 03/18/24 20:00 Pulse 81 03/18/24 20:00 Resp 17 03/18/24 20:00 BP 132/80 03/18/24 20:00 Pulse Ox 95 03/18/24 20:00 FiO2 Intake & Output 03/18/24 03/18/24 03/19/24 06:59 18:59 06:59 Intake Total 389.52 1553.552 Balance 389.52 1553.552 Weight 78.8 kg Intake: IV 389.52 600 Dextrose 5% in Water 1, 337.5 600 000 ml @ 75 mls/hr IV . [id number] YUNIER with Sodium Bicarb (1 Meq/ml) 150 ml Rx#:[id number] Heparin Sod,Pork in 0.45% 52.02 NaCl 25,000 unit In 0.45 % NaCl 1 250ml.bag @ 12 UNITS/KG/HR 9.253 mls/hr IV .Q24H YUNIER Rx#: [id number] Intake, IV Titration 177.552 Amount Heparin Sod,Pork in 0.45% 177.552 NaCl 25,000 unit In 0.45 % NaCl 1 250ml.bag @ 18 UNITS/KG/HR 13.88 mls/hr IV .Q18H1M YUNIER Rx#: [id number] Oral 776 Other: # Voids 3 - Labs CBC & Chem 7: 03/18/24 06:14 03/19/24 05:47 Labs: Abnormal Lab Results - Last 24 Hours (Table) 03/18/24 03/18/24 03/18/24 Range/Units 06:14 06:14 06:14 Hgb 10.2 L (11.4-16.0) gm/dL Hct 33.9 L (34.0-46.0) % MCHC 30.1 L (31.0-37.0) g/dL RDW 15.9 H (11.5-15.5) % APTT 182.1 H* (22.0-30.0) sec BUN 29 H (7-17) mg/dL Creatinine 1.79 H (0.52-1.04) mg/dL Glucose 100 H (74-99) mg/dL 03/18/24 Range/Units 14:10 Hgb (11.4-16.0) gm/dL Hct (34.0-46.0) % MCHC (31.0-37.0) g/dL RDW (11.5-15.5) % APTT 73.2 H (22.0-30.0) sec BUN (7-17) mg/dL Creatinine (0.52-1.04) mg/dL Glucose (74-99) mg/dL Assessment and Plan Time with Patient: Greater than 30
[2024-03-19] MEDS: Apixaban Initiation Dose--VTE 5 MG TAB PO SCH (11:55)
--- NOTE | 2024-03-19 14:24 | P.PN ---
Subjective Progress Note Date: 03/19/24 Principal diagnosis: Acute pulmonary embolism This is a 73-year-old female patient, came to the emergency department after experiencing right-sided chest wall pain. The pain started this morning and it woke her up from sleep. The pain is right under her breast,/on the right side, nonpleuritic in nature, not related to breathing or movement. She did do some strenuous activity over the past 1 week. No trauma to the chest. No hemoptysis. She is not a previous history of DVT and pulmonary embolism more than 20 years ago. She remains on anticoagulation with Eliquis. 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 Her D-dimer was elevated at 3.03. BUN is 42 with a creatinine of 1.7 and a serum bicarb to 13 and the patient continues to have chronic diarrhea related to inflammatory bowel disease. The white cell count 7.4 with a hemoglobin 11.9. Troponins are negative and the patient is currently on room air oxygen. The patient is being seen by cardiology. The pulmonary consultation was requested due to concern of recurrent event. The patient is seen today March 17, 2024 in follow-up in the emergency department. She is currently sitting up on a stretcher. Awake and alert in no acute distress. Maintaining good O2 saturations in the 90s on room air. Dopplers of the lower extremity revealed no DVT on the left. Suspect chronic DVT in the right external iliac vein to the distal femoral vein. VQ scan revealed high probability for pulmonary embolism. She does admit to having missed at least 2 doses of her Eliquis prior to her arrival. She is currently on a heparin drip. White count 8.6. Hemoglobin 11.5. Sodium 142. Potassium 3.2. Bicarb 22. BUN 31. Creatinine 1.67. Glucose 116. She has been initiated on D5W with 3 A of bicarb at 75 mL/h. Patient was today on 03/18/2024, does not seem to be in distress, she is comfortable, but she continues to have severe pleuritic chest pain. Mostly on the left side. Patient remains on heparin, and I plan to continue heparin for now since the patient seems to be quite symptomatic. And will likely transition her back to [facility] tomorrow. WBC count is 6 hemoglobin 10.2 PTT is suprath erapeutic 182 electrolytes are normal BUN 29 creatinine 1.79 Seen today on 03/19/2024, patient is doing well, not in distress, patient has some vague right-sided pleuritic chest pain no shortness of breath, no cough, no wheezing, no hemoptysis. PTT is therapeutic at 47.7 electrolytes are normal BUN is 27 creatinine 1.78 on physical examination the patient sounded fairly clear, hence I will transition the patient to [facility] and consider discharge planning with follow-up on outpatient basis Objective - Vital Signs Vital signs: Vital Signs Temp 99.1 F 03/19/24 08:00 Pulse 81 03/19/24 11:57 Resp 16 03/19/24 11:57 BP 115/73 03/19/24 11:57 Pulse Ox 95 03/19/24 11:57 FiO2 Intake & Output 03/18/24 03/19/24 03/19/24 18:59 06:59 18:59 Intake Total 1553.552 118 Balance 1553.552 118 Weight 79.7 kg Intake: IV 600 Dextrose 5% in Water 1, 600 000 ml @ 75 mls/hr IV . [id number] YUNIER with Sodium Bicarb (1 Meq/ml) 150 ml Rx#:[id number] Intake, IV Titration 177.552 Amount Heparin Sod,Pork in 0.45% 177.552 NaCl 25,000 unit In 0.45 % NaCl 1 250ml.bag @ 18 UNITS/KG/HR 13.88 mls/hr IV .Q18H1M YUNIER Rx#: [id number] Oral 776 118 Other: # Voids 3 # Bowel Movements 3 - Exam GENERAL EXAM: 73-year-old in no distress on room air HEAD: Normocephalic. EYES: Normal reaction of pupils, equal size. NOSE: Clear with pink turbinates. THROAT: No erythema or exudates. NECK: No masses, no JVD. CHEST: No chest wall deformity. LUNGS: Equal air entry with no crackles, wheeze, rhonchi or dullness. CVS: S1 and S2 normal with no audible murmur, regular rhythm. ABDOMEN: No hepatosplenomegaly, normal bowel sounds, no guarding or rigidity. SKIN: No rashes CENTRAL NERVOUS SYSTEM: Alert oriented x 3 no focal deficit EXTREMITIES: No clubbing edema or cyanosis - Labs CBC & Chem 7: 03/18/24 06:14 03/19/24 05:47 Labs: Abnormal Lab Results - Last 24 Hours (Table) 03/18/24 03/19/24 03/19/24 Range/Units 14:10 05:47 05:47 APTT 73.2 H 47.7 H (22.0-30.0) sec Sodium 135 L (137-145) mmol/L BUN 27 H (7-17) mg/dL Creatinine 1.78 H (0.52-1.04) mg/dL Assessment and Plan Assessment: Impression: Acute chest pain, related to high probability of pulmonary embolism. The patient admits to having missed at least 2 doses of Eliquis prior to arrival. The patient is currently on room air oxygen. Previous history of DVT and pulmonary embolism more than 20 years ago, and the patient is currently on anticoagulation with Eliquis. Doppler negative for DVT on the left. 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 Current BMI 34.3 Chronic stage IIIb kidney disease History of chronic disease requiring multiple surgeries and colectomy with subsequent reversal. She continues to have chronic diarrhea Non-anion gap metabolic acidosis, likely secondary to chronic diarrhea History of STRAPPER bleed attributed to warfarin many years back History of seizure secondary to above, currently inactive and stable Hypertension Osteoarthritis Hypothyroidism Fibromyalgia Degenerative arthritis Recommendation: Continue present supportive care measures Change heparin to Eliquis 5 mg twice daily Echocardiogram was reviewed there is no evidence of pulmonary hypertension and no evidence of right ventricular strain Consider discharge planning and follow-up on outpatient basis Time with Patient: Less than 30
[2024-03-20 06:00] VITALS: RESP 16
[2024-03-20 08:46] LABS: Basophils % (A) 0 %; Eosinophils # (A) 0.2 k/uL (0-0.7); Eosinophils % (A) 4 %; HCT 33.2 % (34.0-46.0); HGB 10.4 gm/dL (11.4-16.0); Hypochromasia Slight; Lymphocytes # (A) 1.3 k/uL (1.0-4.8); Lymphocytes % (A) 30 %; MCH 26.6 pg (25.0-35.0); MCHC 31.4 g/dL (31.0-37.0); MCV 84.7 fL (80.0-100.0); Monocytes # (A) 0.3 k/uL (0-1.0); Monocytes % (A) 6 %; Neutrophils # (A) 2.5 k/uL (1.3-7.7); Neutrophils % (A) 58 %; Platelet Count 197 k/uL (150-450); RBC 3.93 m/uL (3.80-5.40); RDW 15.6 % (11.5-15.5); WBC 4.3 k/uL (3.8-10.6)
[2024-03-20 08:50] VITALS: TEMP 98.5
[2024-03-20 09:05] LABS: African American GFR (CKD) 33 (>60 ml/min/1.73 sqM); Anion Gap 7 mmol/L; Blood Urea Nitrogen 26 mg/dL (7-17); Calcium 8.5 mg/dL (8.4-10.2); Carbon Dioxide 25 mmol/L (22-30); Chloride 105 mmol/L (98-107); Glucose 114 mg/dL (74-99); Non-African American GFR(CKD) 29 (>60 ml/min/1.73 sqM); Sodium 137 mmol/L (137-145)
[2024-03-20 09:14] LABS: Potassium 4.4 mmol/L (3.5-5.1)
[2024-03-20 12:42] VITALS: BP 114/74; PULSE 77
--- NOTE | 2024-03-20 13:28 | P.PN ---
Subjective Progress Note Date: 03/20/24 Principal diagnosis: Acute pulmonary embolism This is a 73-year-old female patient, came to the emergency department after experiencing right-sided chest wall pain. The pain started this morning and it woke her up from sleep. The pain is right under her breast,/on the right side, nonpleuritic in nature, not related to breathing or movement. She did do some strenuous activity over the past 1 week. No trauma to the chest. No hemoptysis. She is not a previous history of DVT and pulmonary embolism more than 20 years ago. She remains on anticoagulation with Eliquis. 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 Her D-dimer was elevated at 3.03. BUN is 42 with a creatinine of 1.7 and a serum bicarb to 13 and the patient continues to have chronic diarrhea related to inflammatory bowel disease. The white cell count 7.4 with a hemoglobin 11.9. Troponins are negative and the patient is currently on room air oxygen. The patient is being seen by cardiology. The pulmonary consultation was requested due to concern of recurrent event. The patient is seen today March 17, 2024 in follow-up in the emergency department. She is currently sitting up on a stretcher. Awake and alert in no acute distress. Maintaining good O2 saturations in the 90s on room air. Dopplers of the lower extremity revealed no DVT on the left. Suspect chronic DVT in the right external iliac vein to the distal femoral vein. VQ scan revealed high probability for pulmonary embolism. She does admit to having missed at least 2 doses of her Eliquis prior to her arrival. She is currently on a heparin drip. White count 8.6. Hemoglobin 11.5. Sodium 142. Potassium 3.2. Bicarb 22. BUN 31. Creatinine 1.67. Glucose 116. She has been initiated on D5W with 3 A of bicarb at 75 mL/h. Patient was today on 03/18/2024, does not seem to be in distress, she is comfortable, but she continues to have severe pleuritic chest pain. Mostly on the left side. Patient remains on heparin, and I plan to continue heparin for now since the patient seems to be quite symptomatic. And will likely transition her back to [facility] tomorrow. WBC count is 6 hemoglobin 10.2 PTT is suprath erapeutic 182 electrolytes are normal BUN 29 creatinine 1.79 Seen today on 03/19/2024, patient is doing well, not in distress, patient has some vague right-sided pleuritic chest pain no shortness of breath, no cough, no wheezing, no hemoptysis. PTT is therapeutic at 47.7 electrolytes are normal BUN is 27 creatinine 1.78 on physical examination the patient sounded fairly clear, hence I will transition the patient to [facility] and consider discharge planning with follow-up on outpatient basis Reevaluate today on 03/20/2024, continues to do well, patient is relatively asymptomatic, she is on oral anticoagulation therapy, and I have cleared the patient to be discharged home and follow-up on outpatient basis.CBC today is relatively normal basic metabolic profile is normal BUN is 26 creatinine 1.73 Objective - Vital Signs Vital signs: Vital Signs Temp 98.5 F 03/20/24 08:00 Pulse 77 03/20/24 12:00 Resp 16 03/20/24 12:00 BP 114/74 03/20/24 12:00 Pulse Ox 93 L 03/20/24 12:00 FiO2 Intake & Output 03/19/24 03/20/24 03/20/24 18:59 06:59 18:59 Intake Total 118 20 236 Balance 118 20 236 Weight 80.3 kg Intake: IV 20 Invasive Line 1 10 Invasive Line 2 10 Oral 118 236 Other: Voiding Method Toilet Toilet # Voids 2 6 - Exam GENERAL EXAM: 73-year-old in no distress on room air HEAD: Normocephalic. EYES: Normal reaction of pupils, equal size. NOSE: Clear with pink turbinates. THROAT: No erythema or exudates. NECK: No masses, no JVD. CHEST: No chest wall deformity. LUNGS: Equal air entry with no crackles, wheeze, rhonchi or dullness. CVS: S1 and S2 normal with no audible murmur, regular rhythm. ABDOMEN: No hepatosplenomegaly, normal bowel sounds, no guarding or rigidity. SKIN: No rashes CENTRAL NERVOUS SYSTEM: Alert oriented x 3 no focal deficit EXTREMITIES: No clubbing edema or cyanosis - Labs CBC & Chem 7: 03/20/24 08:38 03/20/24 08:38 Labs: Abnormal Lab Results - Last 24 Hours (Table) 03/20/24 03/20/24 Range/Units 08:38 08:38 Hgb 10.4 L (11.4-16.0) gm/dL Hct 33.2 L (34.0-46.0) % RDW 15.6 H (11.5-15.5) % BUN 26 H (7-17) mg/dL Creatinine 1.73 H (0.52-1.04) mg/dL Glucose 114 H (74-99) mg/dL Assessment and Plan Assessment: Impression: Acute chest pain, related to high probability of pulmonary embolism. The patient admits to having missed at least 2 doses of Eliquis prior to arrival. The patient is currently on room air oxygen. Previous history of DVT and pulmonary embolism more than 20 years ago, and the patient is currently on anticoagulation with Eliquis. Doppler negative for DVT on the left. 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 Current BMI 34.3 Chronic stage IIIb kidney disease History of chronic disease requiring multiple surgeries and colectomy with subsequent reversal. She continues to have chronic diarrhea Non-anion gap metabolic acidosis, likely secondary to chronic diarrhea History of [employer]ING [employer] bleed attributed to warfarin many years back History of seizure secondary to above, currently inactive and stable Hypertension Osteoarthritis Hypothyroidism Fibromyalgia Degenerative arthritis Recommendation: Continue Eliquis and discharge the patient home on Eliquis Will clear for discharge if cleared by other consultants Time with Patient: Less than 30
--- NOTE | 2024-03-20 13:33 | P.PN ---
Subjective Progress Note Date: 03/19/24 History of present illness; patient is 73-year-old lady with past medical history significant PE, DVT, hypertension, hypothyroidism who presented to the ER because of chest pain. Patient stated that she was all right yesterday evening when she suddenly started noticing chest pain that was right-sided loc ated right underneath her breast, was sharp, constant, associated with shortness of breath. There was no aggravating or relieving factor associated with this chest pain. Denied any fever or chills. There was no complaint of orthopnea or PND. Denies any swelling of feet. Patient stated that her chest pain was very similar to her previous episodes of PE. Patient is currently on Eliquis and has been noted to be compliant with it. Because of this chest pain, patient came to the ER Initial lab work done in the ER showed WBC 8.3, hemoglobin 12.1, platelet count 257, D-dimer 3.03, sodium 142, potassium 3.7, BUN 42, creatinine 1.76, glucose 94, magnesium 1.7, troponin 0.012 EKG done in the ER showed heart rate of 70, no ST segment elevation or depression seen, no T-wave inversions seen. Chest x-ray done in the ER showed no acute cardiopulmonary process Patient admitted to internal medicine service 03/17/2024 Patient is lying in the bed. Awake alert and oriented x 3. Currently in the ER. Patient is complaining of chest pain. Denies any worsening shortness of breath. Currently on room air. No leg swelling. No fever no chills. VQ scan showed high probability for PE Lower extremity duplex scan showed no evidence of left lower extremity DVT. Suspect chronic DVT from the right external iliac vein to distal femoral vein. Laboratory data showed sodium 142 potassium 3.2 which is replaced chloride 110 bicarb is 22 BUN 31 and creatinine 1.67 and blood sugar is 116 and albumin 3.2. Patient is being current on heparin drip. Pulmonary and cardiology is on board. Current medications reviewed. 03/18/2024 Patient is currently lying in the bed. Awake alert and oriented x 3. Still complains of constant left-sided chest pressure/pain. no fever no chills. No cough or sputum production. No nausea vomiting abdominal pain or diarrhea. Patient has been current on IV heparin. Laboratory data showed WBC 6.0 hemoglobin 10.2 and platelets 184 APTT 182 BUN 29 and creatinine 1.79 and blood sugar 100. Pulmonary is on board. 03/19/2024 Patient is resting in the bed. Awake alert and oriented x 3. Still complains of constant chest pressure. Denies any worsening pain with deep breathing. No fever no chills. No cough or sputum production. Otherwise patient is getting IV heparin which is changed to Eliquis today. Continue to follow another 24 hours. Lab data reviewed. Current medications reviewed. PHYSICAL EXAMINATION: GENERAL: The patient is alert and oriented x3, not in any acute distress. Well developed, well nourished. HEENT: Pupils are round and equally reacting to light. EOMI. No scleral icterus. No conjunctival pallor. Normocephalic, atraumatic. No pharyngeal erythema. No thyromegaly. CARDIOVASCULAR: S1 and S2 present. No murmurs, rubs, or gallops. PULMONARY: Chest is clear to auscultation, no wheezing or crackles. ABDOMEN: Soft, nontender, nondistended, normoactive bowel sounds. No palpable organomegaly. MUSCULOSKELETAL: No joint swelling or deformity. EXTREMITIES: No cyanosis, clubbing, or pedal edema. NEUROLOGICAL: Gross neurological examination did not reveal any focal deficits. SKIN: No rashes. Assessment and plan Chest pain likely due to pulm embolism. VQ scan showed hyperacute for PE. 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 Elevated D-dimer Hypertension Hyperlipidemia Hypothyroidism History of seizures History of PE and DVT. Patient is on Eliquis at home. Patient missed doses for the last 2 to 3 days prior to admission. Chronic kidney disease stage III Monitor vital signs Monitor CBC Monitor CMP Continue telemetry monitoring Trend troponin 2D echocardiogram was done. Continue with heparin drip. Changed to p.o. Eliquis. Bicarb drip has been discontinued. Current with home medications and follow-up closely. Cardiology and pulmonary is on board. Labs and medication were reviewed.. Dictation was produced using [email or web address] dictation software. please excuse any grammatical, word or spelling errors. Objective - Vital Signs Vital signs: Vital Signs Temp 99.7 F H 03/19/24 20:00 Pulse 90 03/19/24 20:00 Resp 18 03/19/24 20:00 BP 134/76 03/19/24 20:00 Pulse Ox 95 03/19/24 20:00 FiO2 Intake & Output 03/19/24 03/19/24 03/20/24 06:59 18:59 06:59 Intake Total 118 20 Balance 118 20 Weight 79.7 kg Intake: IV 20 Invasive Line 1 10 Invasive Line 2 10 Oral 118 Other: # Voids 3 # Bowel Movements 3 - Labs CBC & Chem 7: 03/20/24 08:38 03/20/24 08:38 Labs: Abnormal Lab Results - Last 24 Hours (Table) 03/19/24 03/19/24 Range/Units 05:47 05:47 APTT 47.7 H (22.0-30.0) sec Sodium 135 L (137-145) mmol/L BUN 27 H (7-17) mg/dL Creatinine 1.78 H (0.52-1.04) mg/dL
== END 2024-03-20 16:16 | disposition home or self-care (01) | DRG 176 ==
LOC: EC 01:54 → 3SCARD 07:10
PROVIDERS: ADMIT Hospitalist; ATTEND Hospitalist
DX: I26.99 Other pulmonary embolism without acute cor pulmonale (principal); E87.20 Acidosis, unspecified; K50.90 Crohn's disease, unspecified, without complications; I82.521 Chronic embolism and thrombosis of right iliac vein; I82.511 Chronic embolism and thrombosis of right femoral vein; N18.32 Chronic kidney disease, stage 3b; I12.9 Hypertensive chronic kidney disease with stage 1 through stage 4 chronic kidney disease, or unspecified chronic kidney disease; E03.9 Hypothyroidism, unspecified; E66.9 Obesity, unspecified; E78.5 Hyperlipidemia, unspecified; M19.90 Unspecified osteoarthritis, unspecified site; M79.7 Fibromyalgia; Z96.652 Presence of left artificial knee joint; Z68.34 Body mass index [BMI] 34.0-34.9, adult; Z86.73 Personal history of transient ischemic attack (TIA), and cerebral infarction without residual deficits; Z86.711 Personal history of pulmonary embolism; Z87.891 Personal history of nicotine dependence; Z98.84 Bariatric surgery status; Z79.890 Hormone replacement therapy; Z79.899 Other long term (current) drug therapy; Z86.69 Personal history of other diseases of the nervous system and sense organs; I08.3 Combined rheumatic disorders of mitral, aortic and tricuspid valves
CPT/HCPCS: 36415; 71046; 78580; 80048; 80053; 81001; 83735; 84484; 85025; 85379; 85610; 85730; 93005; 93306; 93970; 96374; 99285

== ENCOUNTER → 2024-03-28 | Outpatient (CLI) | payer MEDICARE ==
[2024-03-31 11:28] LABS: APTT 41 Sec(s) (<43); Dilute Russell Viper Venom 28 Sec(s) (<44)
[2024-04-01 12:16] LABS: Protein C (Activity) 123.8 % (71.0-138.0)
== END | disposition home or self-care (01) ==
LOC: LABWHC1 10:09
PROVIDERS: ATTEND Internal Medicine Hematology & Oncology
DX: I26.99 Other pulmonary embolism without acute cor pulmonale (principal)
CPT/HCPCS: 36415; 85300; 85303; 85306; 85613; 85730

== ENCOUNTER → 2024-09-30 | Outpatient (CLI) | payer MEDICARE ==
--- NOTE | 2024-09-30 08:55 | MM ---
Reason for Exam: Screening (asymptomatic). Last screening mammogram was performed 12 month(s) ago. Patient History: Menarche at age 12. First Full-Term at age 18. Left ovary removed at age 39. Right ovary removed at age 39. Hysterectomy at age 39. Postmenopausal. Patient used Progesterone for 10 years. Maternal cousin had breast cancer, age 50. Maternal aunt had breast cancer. Sister had breast cancer, age 68. Risk Values: Annemarie 5 year model risk: 3.3%. NCI Lifetime model risk: 7.5%. Prior Study Comparison: 10/14/2021 Bilateral MG 3D screening mammo w/cad, [facility]. 10/16/2022 Bilateral MG 3D screening mammo w/cad, [facility]. 10/10/2023 Bilateral MG 3D screening mammo w/cad, [facility]. Tissue Density: There are scattered areas of fibroglandular density. Findings: Analyzed By CAD. Right breast: There is no suspicious group of microcalcifications or new suspicious mass. Left breast: There is no suspicious group of microcalcifications or new suspicious mass. Overall Assessment: Negative, BI-RAD 1 Management: Screening Mammogram of both breasts in [address] [facility] will attempt to contact patient to return for supplemental views and ultrasound if indicated. Patient should continue monthly self-breast exams. A clinical breast exam by your physician is recommended on an annual basis. This exam should not preclude additional follow-up of suspicious palpable abnormalities. Note on Annemarie scores and lifetime risk: 1. A Annemarie score greater than 3% is considered moderate risk. If this is the case, consider specialist referral to assess eligibility for a risk reducing agent. 2. If overall lifetime risk for the development of breast cancer is 20% or higher, the patient may qualify for future screening with alternating mammogram and breast MRI. [facility], , 09/30/2024 8:47 AM. Electronically signed and approved by: Sanjay Carreon DO
== END | disposition home or self-care (01) ==
LOC: RADMAMWWP 08:15
PROVIDERS: ATTEND Internal Medicine
DX: Z12.31 Encounter for screening mammogram for malignant neoplasm of breast (principal); R92.323 Mammographic fibroglandular density, bilateral breasts; Z78.0 Asymptomatic menopausal state; Z80.3 Family history of malignant neoplasm of breast
CPT/HCPCS: 77063; 77067